=== PATIENT | male | born 1975 | race Caucasian/White ===

== ENCOUNTER 2020-08-08 16:47 | Emergency (ER) | payer OTHER ==
[2020-08-08 16:59] VITALS: BP 159/115; PULSE 95; RESP 18; TEMP 98.3
[2020-08-08] MEDS ORDERED: HYDROmorphone 1 MG/ML 1 ML SYRINGE IM STA (17:23)
--- NOTE | 2020-08-08 17:43 | XR ---
PROCEDURE: XR shoulder complete LT - 3V DATE AND TIME: 08/08/2020 5:30 PM CLINICAL INDICATION: PHH; post op TECHNIQUE: Department protocol COMPARISON: None FINDINGS: There is no fracture or malalignment. There is distinct soft tissue swelling involving the rotator cuff. 1 cm separation at the AC joint is noted, with no malalignment. IMPRESSION: Soft tissue swelling.
--- NOTE | 2020-08-08 18:47 | ED ---
General Adult HPI - General Chief complaint: Extremity Injury, Upper Stated complaint: Shoulder pain, post surgery, [facility] Time Seen by Provider: 08/08/20 17:05 Source: patient, RN notes reviewed Mode of arrival: ambulatory Limitations: no limitations - History of Present Illness Initial comments: 45-year-old male presents to the emergency room for a chief complaint of left shoulder pain. Patient reports that about 3 weeks ago he had surgery in the left shoulder to repair a tear. Patient is unsure exactly what was torn. Patient states that this is his third surgery on the shoulder because of complications. Patient had the surgery performed at [facility]. Patient presents today for pain of the left shoulder. States he started physical therapy on Wednesday and this exacerbated the pain. He did call his orthopedic doctor who told him he cannot see him before the end of July and would not write him any more pain medications. His primary care refused to write him pain medications and told him they could not help him. They told him to come to the ER. Patient denies fevers or chills. Patient denies numbness or tingling in the hand.Patient has no other complaints at this time including shortness of breath, chest pain, abdominal pain, nausea or vomiting, headache, or visual changes. - Related Data Previous Rx's Medication Instructions Recorded HYDROcodone/APAP 5-325MG [[place] 1 tab PO Q6HR PRN #10 tab 08/08/20 5-325] Allergies Allergy/AdvReac Type Severity Reaction Status Date / Time cortisone Allergy Unknown Verified 08/08/20 17:48 prednisone Allergy Unknown Verified 08/08/20 17:48 Review of Systems ROS Statement: Those systems with pertinent positive or pertinent negative responses have been documented in the HPI. ROS Other: All systems not noted in ROS Statement are negative. Past Medical History Past Medical History: Myocardial Infarction ([place]) Additional Past Medical History / Comment(s): pancreatitis History of Any Multi-Drug Resistant Organisms: None Reported Past Surgical History: Orthopedic Surgery Additional Past Surgical History / Comment(s): left shoulder Past Psychological History: No Psychological Hx Reported Smoking Status: Current every day smoker Past Alcohol Use History: Occasional Past Drug Use History: None Reported General Exam Limitations: no limitations General appearance: alert Head exam: Present: atraumatic, normocephalic, normal inspection Eye exam: Present: normal appearance, PERRL, EOMI. Absent: scleral icterus, conjunctival injection, periorbital swelling ENT exam: Present: normal exam, mucous membranes moist Neck exam: Present: normal inspection, full ROM. Absent: tenderness, meningismus, lymphadenopathy Respiratory exam: Present: normal lung sounds bilaterally. Absent: respiratory distress, wheezes, rales, rhonchi, stridor Cardiovascular Exam: Present: regular rate, normal rhythm, normal heart sounds. Absent: systolic murmur, diastolic murmur, rubs, gallop, clicks GI/Abdominal exam: Present: soft, normal bowel sounds. Absent: distended, tenderness, guarding, rebound, rigid Extremities exam: Present: tenderness (Patient has minimal generalized tenderness noted to the deltoid.), normal capillary refill (Capillary refill less than 2 seconds, radial pulse 2+ in the left upper extremity.), other (Respiratory Therapist Assistant strength 5 out of 5 in the left upper extremity. Sensation intact.). Absent: full ROM (Patient able to flex left shoulder to 45. States he is not supposed to do abduction of the left shoulder. Full range motion of the left hand.), joint swelling (There is no erythema or edema noted of the left shoulder. No evidence of infection. Incisions are well healed, no purulent drainage or deh iscence.) Course Vital Signs 08/08/20 16:48 Temperature 98.3 F Pulse Rate 95 Respiratory 18 Rate Blood Pressure 159/115 O2 Sat by Pulse 98 Oximetry Medical Decision Making - Medical Decision Making X-ray of the left shoulder was obtained which showed soft tissue swelling. There is a 1 cm separation of the before meals joint noted as well, no malalignment. I discussed these findings with patient. Patient was given IM pain medication and will be written a 3 day prescription for pain medication. However was recommended that he follow-up with his surgeon for a recheck. He is also encouraged to follow up with primary care. Discussed returning here for any worsening symptoms. Disposition Clinical Impression: Shoulder pain, left, Post-op pain Disposition: HOME SELF-CARE Condition: Good Instructions (If sedation given, give patient instructions): Shoulder Pain (ED) Additional Instructions: Please take pain medications as directed, do not drive or operate machinery while taking these. Follow-up with your orthopedic physician. If you develop any worsening symptoms such as fevers return to the emergency room. Prescriptions: HYDROcodone/APAP 5-325MG [[place] 5-325] 1 tab PO Q6HR PRN #10 tab PRN Reason: Pain Is patient prescribed a controlled substance at d/c from ED?: Yes When asked, does pt state using other controlled substances?: No If prescribed controlled substance>3 days was MAPS reviewed?: Prescribed <3 Days If opioid is for acute pain is fill amount 7 days or less?: Yes If Rx opioid, was Start Talking consent form obtained?: Yes Referrals: Nonstaff,Physician [Primary Care Provider] - 1-2 days Time of Disposition: 18:43
== END 2020-08-08 19:08 | disposition home or self-care (01) ==
LOC: EC 16:47
DX: G89.18 Other acute postprocedural pain (principal); M25.512 Pain in left shoulder; I25.2 Old myocardial infarction; F17.200 Nicotine dependence, unspecified, uncomplicated; Z88.8 Allergy status to other drugs, medicaments and biological substances; Y92.69 Other specified industrial and construction area as the place of occurrence of the external cause; Y99.0 Civilian activity done for income or pay
CPT/HCPCS: 73030; 99283; 96372; J1170

== ENCOUNTER 2021-04-06 18:21 | Observation (INO) | payer OTHER ==
[2021-04-06] MEDS ORDERED: PANTOPRAZOLE 40 MG/10 ML VIAL IVP STA (18:50)
[2021-04-06] MEDS ORDERED: SODIUM CHLORIDE 0.9% 1,000 ML IV STA ×2 (18:50)
[2021-04-06] MEDS ORDERED: HYDROmorphone 1 MG/ML 1 ML SYRINGE IVP STA ×2 (18:51→20:03)
--- NOTE | 2021-04-06 18:54 | ED ---
Abdominal Pain HPI - General Chief Complaint: Abdominal Pain Stated Complaint: epigastric pain, constipation Time Seen by Provider: 04/06/21 18:29 Source: patient, RN notes reviewed Mode of arrival: ambulatory Limitations: no limitations - History of Present Illness Initial Comments: This is a 46-year-old male with a prior history of alcoholic pancreatitis who states she's had drank since prior to his left shoulder surgery in February of this year who states he been having abdominal pain is very severe 10+/10 with decrease oral intake some nausea he states the pain is severe like his previous episode of pancreatitis does radiate around to his left flank area chest wall. No lightheadedness or dizziness. He has had black colored liquid stool he stat es started is surely after the surgery. He had previously been on antibiotics is on none now. MD Complaint: abdominal pain - Related Data Previous Rx's Medication Instructions Recorded HYDROcodone/APAP 5-325MG [[place] 1 tab PO Q6HR PRN #10 tab 08/08/20 5-325] Allergies Allergy/AdvReac Type Severity Reaction Status Date / Time cortisone Allergy Unknown Verified 04/06/21 18:23 prednisone Allergy Unknown Verified 04/06/21 18:23 Review of Systems ROS Statement: Those systems with pertinent positive or pertinent negative responses have been documented in the HPI. ROS Other: All systems not noted in ROS Statement are negative. Past Medical History Past Medical History: Myocardial Infarction ([place]) Additional Past Medical History / Comment(s): pancreatitis History of Any Multi-Drug Resistant Organisms: None Reported Past Surgical History: Orthopedic Surgery Additional Past Surgical History / Comment(s): left shoulder Past Psychological History: No Psychological Hx Reported Smoking Status: Current every day smoker Past Alcohol Use History: Rare Past Drug Use History: None Reported General Exam - General Exam Comments Initial Comments: This is a well-developed nourished awake alert oriented times 3 male Limitations: no limitations General appearance: alert, anxious Head exam: Present: atraumatic, normocephalic, normal inspection Eye exam: Present: normal appearance, PERRL, EOMI. Absent: scleral icterus, conjunctival injection, periorbital swelling ENT exam: Present: mucous membranes dry Neck exam: Present: normal inspection. Absent: tenderness, meningismus, lymphadenopathy Respiratory exam: Present: normal lung sounds bilaterally. Absent: respiratory distress, wheezes, rales, rhonchi, stridor Cardiovascular Exam: Present: normal rhythm, tachycardia, normal heart sounds. Absent: systolic murmur, diastolic murmur, rubs, gallop, clicks GI/Abdominal exam: Present: soft, tenderness (Epigastric tenderness palpation no overt guarding or rebound), normal bowel sounds. Absent: distended, guarding, rebound, rigid Rectal exam: Present: normal inspection, normal rectal tone, heme (+) stool Extremities exam: Present: normal inspection, full ROM, normal capillary refill. Absent: tenderness, pedal edema, joint swelling, calf tenderness Back exam: Present: normal inspection Neurological exam: Present: alert, oriented X3, CN II-XII intact Psychiatric exam: Present: normal affect, normal mood Skin exam: Present: warm, dry, intact, normal color. Absent: rash Course Vital Signs 04/06/21 18:23 Temperature 98.7 F Pulse Rate 105 H Respiratory 19 Rate Blood Pressure 164/108 O2 Sat by Pulse 98 Oximetry - Reevaluation(s) Reevaluation #1: 04/06/21 20:55 CT imaging reviewed as well as report no evidence of acute processes are is evidence of diverticular disease but no acute diverticulitis Medical Decision Making - Medical Decision Making Reevaluation the patient several occasions revealed he had minimal improvement thus far the pain lipase levels normal rectal exam showed heme positive results. I did discuss case with patient family patient will be admitted to Dr. Moore. CAT scan. - Lab Data Result diagrams: 04/06/21 19:13 04/06/21 19:13 Lab Results 04/06/21 04/06/21 04/06/21 Range/Units 19:13 19:13 19:13 WBC 11.8 H (3.8-10.6) k/uL RBC 4.33 (4.30-5.90) m/uL Hgb 14.1 (13.0-17.5) gm/dL Hct 41.2 (39.0-53.0) % MCV 95.2 (80.0-100.0) fL MCH 32.6 (25.0-35.0) pg MCHC 34.2 (31.0-37.0) g/dL RDW 12.8 (11.5-15.5) % Plt Count 543 H (150-450) k/uL MPV 6.6 Neutrophils % 76 % Lymphocytes % 17 % Monocytes % 4 % Eosinophils % 1 % Basophils % 1 % Neutrophils # 9.0 H (1.3-7.7) k/uL Lymphocytes # 2.0 (1.0-4.8) k/uL Monocytes # 0.4 (0-1.0) k/uL Eosinophils # 0.2 (0-0.7) k/uL Basophils # 0.1 (0-0.2) k/uL PT 10.0 (9.0-12.0) sec INR 0.9 (<1.2) APTT 22.2 (22.0-30.0) sec Sodium 132 L (137-145) mmol/L Potassium 3.9 (3.5-5.1) mmol/L Chloride 99 (98-107) mmol/L Carbon Dioxide 21 L (22-30) mmol/L Anion Gap 12 mmol/L BUN 4 L (9-20) mg/dL Creatinine 0.64 L (0.66-1.25) mg/dL Est GFR (CKD-EPI)AfAm >90 (>60 ml/min/1.73 sqM) Est GFR (CKD-EPI)NonAf >90 (>60 ml/min/1.73 sqM) Glucose 113 H (74-99) mg/dL Plasma Lactic Acid Bogdan (0.7-2.0) mmol/L Calcium 9.2 (8.4-10.2) mg/dL Total Bilirubin 0.1 L (0.2-1.3) mg/dL AST 20 (17-59) U/L ALT 13 (4-49) U/L Alkaline Phosphatase 145 H (38-126) U/L Creatine Kinase 39 L (55-170) U/L Total Protein 6.6 (6.3-8.2) g/dL Albumin 4.0 (3.5-5.0) g/dL Amylase 54 (30-110) U/L Lipase 105 (23-300) U/L Blood Type Blood Type Confirm Blood Type Recheck Bld Type Recheck Status Antibody Screen Spec Expiration Date 04/06/21 04/06/21 04/06/21 Range/Units 19:13 19:13 19:43 WBC (3.8-10.6) k/uL RBC (4.30-5.90) m/uL Hgb (13.0-17.5) gm/dL Hct (39.0-53.0) % MCV (80.0-100.0) fL MCH (25.0-35.0) pg MCHC (31.0-37.0) g/dL RDW (11.5-15.5) % Plt Count (150-450) k/uL MPV Neutrophils % % Lymphocytes % % Monocytes % % Eosinophils % % Basophils % % Neutrophils # (1.3-7.7) k/uL Lymphocytes # (1.0-4.8) k/uL Monocytes # (0-1.0) k/uL Eosinophils # (0-0.7) k/uL Basophils # (0-0.2) k/uL PT (9.0-12.0) sec INR (<1.2) APTT (22.0-30.0) sec Sodium (137-145) mmol/L Potassium (3.5-5.1) mmol/L Chloride (98-107) mmol/L Carbon Dioxide (22-30) mmol/L Anion Gap mmol/L BUN (9-20) mg/dL Creatinine (0.66-1.25) mg/dL Est GFR (CKD-EPI)AfAm (>60 ml/min/1.73 sqM) Est GFR (CKD-EPI)NonAf (>60 ml/min/1.73 sqM) Glucose (74-99) mg/dL Plasma Lactic Acid Bogdan 1.8 (0.7-2.0) mmol/L Calcium (8.4-10.2) mg/dL Total Bilirubin (0.2-1.3) mg/dL AST (17-59) U/L ALT (4-49) U/L Alkaline Phosphatase (38-126) U/L Creatine Kinase (55-170) U/L Total Protein (6.3-8.2) g/dL Albumin (3.5-5.0) g/dL Amylase (30-110) U/L Lipase (23-300) U/L Blood Type B Positive Blood Type Confirm B Positive Blood Type Recheck No Previous Record Bld Type Recheck Status CABO Indicated Antibody Screen NEGATIVE Spec Expiration Date 04/09/2021 - 2342 - Radiology Data Radiology results: report reviewed (KUB reviewed evidence nonspecific), image reviewed Disposition Clinical Impression: Intractable abdominal pain, GI bleed Disposition: ADMITTED IP TO THIS [facility] Condition: Fair Referrals: Nonstaff,Physician [REFERRING] - 1-2 days
[2021-04-06 19:32] LABS: Basophils # (A) 0.1 k/uL (0-0.2); Basophils % (A) 1 %; Eosinophils # (A) 0.2 k/uL (0-0.7); Eosinophils % (A) 1 %; HCT 41.2 % (39.0-53.0); HGB 14.1 gm/dL (13.0-17.5); Lymphocytes % (A) 17 %; MCH 32.6 pg (25.0-35.0); MCHC 34.2 g/dL (31.0-37.0); MCV 95.2 fL (80.0-100.0); Mean Platelet Volume 6.6; Monocytes # (A) 0.4 k/uL (0-1.0); Monocytes % (A) 4 %; Neutrophils % (A) 76 %; Platelet Count 543 k/uL (150-450); RBC 4.33 m/uL (4.30-5.90); RDW 12.8 % (11.5-15.5); WBC 11.8 k/uL (3.8-10.6)
[2021-04-06 19:40] LABS: ALT 13 U/L (4-49); AST 20 U/L (17-59); African American GFR (CKD) >90 (>60 ml/min/1.73 sqM); Alkaline Phosphatase 145 U/L (38-126); Amylase 54 U/L (30-110); Anion Gap 12 mmol/L; Blood Urea Nitrogen 4 mg/dL (9-20); Calcium 9.2 mg/dL (8.4-10.2); Carbon Dioxide 21 mmol/L (22-30); Chloride 99 mmol/L (98-107); Creatine Kinase 39 U/L (55-170); Glucose 113 mg/dL (74-99); Lipase 105 U/L (23-300); Non-African American GFR(CKD) >90 (>60 ml/min/1.73 sqM); Potassium 3.9 mmol/L (3.5-5.1); Sodium 132 mmol/L (137-145); Total Bilirubin 0.1 mg/dL (0.2-1.3); Total Protein 6.6 g/dL (6.3-8.2)
[2021-04-06 19:52] LABS: INR 0.9 (<1.2); Partial Thromboplastin Time 22.2 sec (22.0-30.0)
--- NOTE | 2021-04-06 20:24 | XR ---
EXAMINATION TYPE: XR KUB DATE OF EXAM: 04/06/2021 COMPARISON: NONE HISTORY: Pain TECHNIQUE: 2 views upright FINDINGS: There is no sign of intestinal obstruction or pneumoperitoneum. Fecal pattern is normal. Th ere is no sign of a mass. Lung bases are clear. There are no pathologic calcifications over the kidne ys. IMPRESSION: Nonacute abdomen.
[2021-04-06] MEDS ORDERED: NALOXONE 0.4 MG/ML 1 ML VIAL IV PRN (20:51)
[2021-04-06] MEDS ORDERED: ONDANSETRON 4 MG/2 ML VIAL IVP PRN (20:51)
--- NOTE | 2021-04-06 20:51 | CT ---
EXAMINATION TYPE: CT abdomen pelvis w con DATE OF EXAM: 04/06/2021 COMPARISON: None HISTORY: Upper Abdominal pain with black stools. CT DLP: 871.2 mGycm Automated exposure control for dose reduction was used. CONTRAST: Performed with IV Contrast, patient injected with 100 mL of Isovue 300. Images obtained from the diaphragm to the floor the pelvis with IV contrast. Lung bases are clear. There is no pleural effusion. Heart size is normal. There is no pericardial eff usion. There is posterior left side diaphragmatic hernia that contains fat. Liver spleen pancreas gallbladder appear intact. The bile ducts are not dilated. Stomach is intact. There is no adrenal mass. Kidneys show satisfactory contrast opacification. There is no hydronephrosi s. There is 2 cm cortical cyst lateral left kidney. Delayed images show normal renal excretion. There is no retroperitoneal adenopathy. Ureters are not dilated. The bladder distends smoothly. There is n o inguinal hernia. There are multiple sigmoid diverticula. There is no diverticulitis. There is no mesenteric edema. There is no ascites or free air. There is no bowel obstruction. The cassius endix appears normal. The lumbar vertebra have normal alignment. There is no compression fracture. Bony pelvis is intact. T he hip joints are intact. There is no hip dysplasia. IMPRESSION: Moderate sigmoid diverticulosis without diverticulitis. Normal appendix.
[2021-04-06 21:27] LABS: Appearance,Urine Clear (Clear); Bilirubin,Urine Negative (Negative); Blood,Urine Negative (Negative); Color,Urine Light Yellow; Glucose,Urine (UA) Negative (Negative); Ketones,Urine Negative (Negative); Leukocyte Esterase,Urine Negative (Negative); Nitrite,Urine Negative (Negative); Protein,Urine Negative (Negative); Specific Gravity,Urine 1.021 (1.001-1.035); Urobilinogen,Urine <2.0 mg/dL (<2.0)
[2021-04-06] MEDS: DICYCLOMINE 10 MG/ML 2 ML AMP IM STA ×2 (21:39→21:45)
[2021-04-06] MEDS: PANTOPRAZOLE 40 MG/10 ML VIAL IV SCH (21:40)
[2021-04-06] MEDS: SODIUM CHLORIDE 0.9% 1,000 ML IV SCH (21:44)
[2021-04-06] MEDS: HYDROmorphone 1 MG/ML 1 ML SYRINGE IVP PRN (23:36)
[2021-04-06] MEDS ORDERED: ZOLPIDEM 5 MG TAB PO PRN (23:46)
[2021-04-07] MEDS: lisinopriL 20 MG TAB PO SCH ×3 (00:20→19:50)
[2021-04-07] MEDS: NICOTINE 14MG/24HR PATCH TRANSDERM SCH ×2 (00:20→07:45)
[2021-04-07] MEDS: HYDROmorphone 1 MG/ML 1 ML SYRINGE IVP PRN ×6 (02:36→22:13)
[2021-04-07] MEDS: SODIUM CHLORIDE 0.9% 1,000 ML IV SCH ×3 (05:19→17:01)
[2021-04-07 06:52] LABS: Basophils # (A) 0.1 k/uL (0-0.2); Basophils % (A) 1 %; Eosinophils # (A) 0.2 k/uL (0-0.7); Eosinophils % (A) 3 %; HCT 36.8 % (39.0-53.0); HGB 12.6 gm/dL (13.0-17.5); Lymphocytes # (A) 2.2 k/uL (1.0-4.8); Lymphocytes % (A) 28 %; MCH 32.6 pg (25.0-35.0); MCHC 34.2 g/dL (31.0-37.0); MCV 95.3 fL (80.0-100.0); Mean Platelet Volume 7.4; Monocytes # (A) 0.4 k/uL (0-1.0); Monocytes % (A) 5 %; Neutrophils # (A) 4.7 k/uL (1.3-7.7); Neutrophils % (A) 62 %; Platelet Count 430 k/uL (150-450); RBC 3.86 m/uL (4.30-5.90); RDW 12.4 % (11.5-15.5); WBC 7.6 k/uL (3.8-10.6)
[2021-04-07] MEDS: buPROPion SR 150 MG TABLET.ER PO SCH (07:45)
[2021-04-07] MEDS: NON FORMULARY DRUG (Lubiprostone [Lubiprostone] 24 MCG Capsule) PO SCH ×2 (07:45→21:20)
[2021-04-07] MEDS: DOXYCYCLINE 100 MG CAP PO SCH ×2 (07:45→20:00)
[2021-04-07] MEDS: PANTOPRAZOLE 40 MG/10 ML VIAL IV SCH ×2 (07:45→19:51)
[2021-04-07] MEDS ORDERED: ETODOLAC 300 MG CAPSULE PO SCH (09:00)
[2021-04-07] MEDS: NICOTINE 21MG/24HR PATCH TRANSDERM SCH (10:12)
[2021-04-07] MEDS: SUCRALFATE 1 GM TAB PO SCH ×2 (11:31→16:58)
[2021-04-07] MEDS: HYDROcodone/APAP 10-325MG 1 EACH TAB PO PRN ×2 (11:34→19:49)
--- NOTE | 2021-04-07 11:52 | P.HPIM ---
History of Present Illness Patient is a 44-year-old male came in with epigastric abdominal pain. Patient does drink alcohol about 2 beers every day but has not been drinking alcohol since his shoulder surgery patient had recent shoulder surgery after which barry barbra was a started on nonsteroidal anti-inflammatory. Patient had history of alcoholic pancreatitis in the past and he believes he has pancreatitis. CT of the abdomen did not show any progression of the pancreas and lipase is 52. Patient was also complaining of dark stools about couple episodes in Wednesday and one episode on Wednesday. Patient's hemoglobin did go down from 14-12.6 that is because of the IV fluids patient is bit hyponatremic at 132. Patient denied any fever chills. General surgery was consulted for possible upper GI endoscopy. Patient's pain is 10/10 sharp in nature in the epigastric area radiating to the left the upper quadrant. REVIEW OF SYSTEMS: CONSTITUTIONAL: No fever, no malaise, no fatigue. HEENT: No recent visual problems or hearing problems. Denied any sore throat. CARDIOVASCULAR: No chest pain, orthopnea, PND, no palpitations, no syncope. PULMONARY: No shortness of breath, no cough, no hemoptysis. GASTROINTESTINAL: As mentioned in HPI NEUROLOGICAL: No headaches, no weakness, no numbness. HEMATOLOGICAL: Denies any bleeding or petechiae. GENITOURINARY: Denies any burning micturition, frequency, or urgency. MUSCULOSKELETAL/RHEUMATOLOGICAL: Denies any joint pain, swelling, or any muscle pain. ENDOCRINE: Denies any polyuria or polydipsia. The rest of the 14-point review of systems is negative. PHYSICAL EXAMINATION: GENERAL: The patient is alert and oriented x3, not in any acute distress. Well developed, well nourished. HEENT: Pupils are round and equally reacting to light. EOMI. No scleral icterus. No conjunctival pallor. Normocephalic, atraumatic. No pharyngeal erythema. No thyromegaly. CARDIOVASCULAR: S1 and S2 present. No murmurs, rubs, or gallops. PULMONARY: Chest is clear to auscultation, no wheezing or crackles. ABDOMEN: Soft, some subjective tenderness in the epigastric area nondistended, normoactive bowel sounds. No palpable organomegaly. MUSCULOSKELETAL: No joint swelling or deformity. EXTREMITIES: No cyanosis, clubbing, or pedal edema. NEUROLOGICAL: Gross neurological examination did not reveal any focal deficits. SKIN: No rashes. Assessment and plan -Epigastric abdominal pain probably secondary to peptic ulcer disease, my suspicion is low that patient has a GI bleed considering his history in spite of FOBT being positive. Patient will be monitored. Gen. surgery will evaluate the patient for possible upper GI endoscopy and decision of endoscopy as per general surgery. -Hypovolemic hyponatremia continue with IV fluids -Leukocytosis reactive in nature -Alcohol use: Counseling was provided -Recent left shoulder surgery. -Nicotine use: Counseling was provided DVT prophylaxis: Early ambulation Past Medical History Past Medical History: Myocardial Infarction ([place]) Additional Past Medical History / Comment(s): pancreatitis Last Myocardial Infarction Date:: Pt states 10 years ago. History of Any Multi-Drug Resistant Organisms: None Reported Past Surgical History: Orthopedic Surgery Additional Past Surgical History / Comment(s): left shoulder Past Anesthesia/Blood Transfusion Reactions: No Reported Reaction Past Psychological History: No Psychological Hx Reported Smoking Status: Current every day smoker Past Alcohol Use History: Daily Additional Past Alcohol Use History / Comment(s): Pt states he drank 6-10 beers/day prior to his surgery on March 18. Past Drug Use History: None Reported Medications and Allergies Home Medications Medication Instructions Recorded Confirmed Type Diclofenac Sodium [Diclofenac 100 mg PO BID 04/06/21 04/06/21 History Sodium ER] Doxycycline Monohydrate 100 mg PO BID 04/06/21 04/06/21 History Lubiprostone 24 mg PO BID 04/06/21 04/06/21 History Zolpidem [Ambien] 5 mg PO HS PRN 04/06/21 04/06/21 History buPROPion HCL [buPROPion HCL SR] 150 mg PO DAILY 04/06/21 04/06/21 History lisinopriL [Zestril] 20 mg PO BID 04/06/21 04/06/21 History Allergies Allergy/AdvReac Type Severity Reaction Status Date / Time cortisone Allergy Unknown Verified 04/06/21 21:03 prednisone Allergy Unknown Verified 04/06/21 21:03 Physical Exam Vitals: Vital Signs Temp Pulse Pulse Resp BP BP Pulse Ox 04/07/21 07:00 98.4 F 69 16 137/94 98 04/07/21 02:00 18 04/07/21 01:24 98.1 F 65 16 156/88 99 04/06/21 22:43 98.8 F 70 18 164/94 99 04/06/21 21:33 83 18 157/105 98 04/06/21 18:23 98.7 F 105 H 19 164/108 98 Intake and Output 04/06/21 04/07/21 04/07/21 22:59 06:59 14:59 Intake Total 0 Balance 0 Intake: Oral 0 Other: Voiding Method Toilet # Voids 2 Weight 94.347 kg Results CBC & Chem 7: 04/07/21 06:34 04/06/21 19:13 Labs: Abnormal Lab Results - Last 24 Hours (Table) 04/06/21 04/06/21 04/07/21 Range/Units 19:13 19:13 06:34 WBC 11.8 H (3.8-10.6) k/uL RBC 3.86 L (4.30-5.90) m/uL Hgb 12.6 L (13.0-17.5) gm/dL Hct 36.8 L (39.0-53.0) % Plt Count 543 H (150-450) k/uL Neutrophils # 9.0 H (1.3-7.7) k/uL Sodium 132 L (137-145) mmol/L Carbon Dioxide 21 L (22-30) mmol/L BUN 4 L (9-20) mg/dL Creatinine 0.64 L (0.66-1.25) mg/dL Glucose 113 H (74-99) mg/dL Total Bilirubin 0.1 L (0.2-1.3) mg/dL Alkaline Phosphatase 145 H (38-126) U/L Creatine Kinase 39 L (55-170) U/L Thrombosis Risk Factor Assmnt - Choose All That Apply Each Factor Represents 1 point: Age 41-60 years Other Risk Factors: No Other congenital or acquired thrombophilia - If yes, enter type in comment: No Thrombosis Risk Factor Assessment Total Risk Factor Score: 1 Thrombosis Risk Factor Assessment Level: Low Risk
--- NOTE | 2021-04-07 16:28 | P.GSCN ---
History of Present Illness Consult date: 04/07/21 History of present illness: CHIEF COMPLAINT: Abdominal pain HISTORY OF PRESENT ILLNESS: This is a 46-year-old male with a known history of alcohol pancreatitis, nicotine dependence and MO secondary to alcohol abuse. He also had a left shoulder surgery in 03/18/2021. He has been on NSAIDs since surgery. Patient's presents to the hospital with complaining of epigastric pain that radiates across the left abdomen and into his back. Initially he thought he was having pain due to constipation. He was able to have a bowel movement after about a week and was still having pain. Patient reports that this epigastric pain has been there for about a week. He also has been having black liquidy stools. His hemoglobin on admission was 12.6 stool for occult blood was positive. He had a computed tomography scan of the abdomen and pelvis showing moderate sigmoid diverticulosis without diverticulitis. Normal appendix. Patient denies any fever chills or sweats. He denies any nausea or vomiting. Surgical service consulted for abdominal pain and positive fecal occult blood. Patient does report having EGD done about 3 years ago and per patient it was normal. Patient does report taking the NSAID that was prescribed by his orthopedic. And then he switched over to Aleve over the last couple of days. Patient reports that he has not had any alcohol since his shoulder surgery in February. PAST MEDICAL HISTORY: See list. PAST SURGICAL HISTORY: See list. MEDICATIONS: See list. ALLERGIES: See list. SOCIAL HISTORY: No illicit drug use. REVIEW OF SYSTEMS: CONSTITUTIONAL: Denies fever or chills. HEENT: Denies blurred vision, vision changes, or eye pain. Denies hemoptysis ENDOCRINE: Denies heat or cold intolerance. CARDIOVASCULAR: Denies chest pain or pressure. RESPIRATORY: No shortness of breath. GASTROINTESTINAL: Please refer to HPI NEURO: Denies history of seizures. PSYCH: No depression or suicidal ideation HEMATOLOGIC: Denies bleeding disorders. LYMPHATIC: The patient denies any lumps and bumps around the neck. GENITOURINARY: Denies any blood in urine or increased urinary frequency. MUSCULOSKELETAL: Denies myalgias. Denies joint swelling. Denies decreased range of motion beyond patients baseline. SKIN: Denies pruitis. Denies rash. PHYSICAL EXAM: VITAL SIGNS: Reviewed GENERAL: Well-developed in no acute distress. HEENT: No sclera icterus. Extraocular movements grossly intact. Moist buccal mucosa. Head is atraumatic, normocephalic. Hears conversational speech. No nasal drainage. NECK: Supple without lymphadenopathy. CHEST: Non-labored respirations and equal bilateral excursions. CARDIOVASCULAR: Palpable 2+ radial pulses. ABDOMEN: Soft. Nondistended. Tenderness with palpation of the epigastric area MUSCULOSKELETAL: No clubbing or cyanosis. NEUROLOGIC: No focal or lateralizing signs. Cranial nerves II through XII grossly intact. PSYCH: Appropriate affect. Alert and oriented to person, place and time. SKIN: Well perfused. Good skin turgor. LABORATORY DATA: WBC 11.8 down to 7.6 hemoglobin 14.1 down to 12.6 platelets 430 Lipase 52 AST 20 ALT 13 alk phos 145 Urinalysis negative for infection Stool occult blood positive IMAGING: Computed tomography scan findings as stated above ASSESSMENT: 1. Epigastric abdominal pain that radiates to the left upper abdomen and back with black stools and recent NSAID use. Patient's symptoms may be due to a stomach ulcer as well as a gallbladder dysfunction. 2. History of alcohol pancreatitis 3. Nicotine dependence 4. Leukocytosis resolved 5. Hyponatremia PLAN: -Gallbladder ultrasound ordered to rule out any gallbladder disease or dysfunction -Plan for EGD tentatively on Wednesday04/09/2021 -Continue Protonix 40 mg IV twice a day -Add Carafate 1 g 3 times a day -Start patient on clear liquid diet -Discussed smoking cessation. Nicotine patch increased to 21 mg daily -Continue pain medication as needed Thank you for this consultation Physician Inspector Balance Truing note has been reviewed by physician. Signing provider agrees with the documented findings, assessment, and plan of care. Past Medical History Past Medical History: Myocardial Infarction (MO) Additional Past Medical History / Comment(s): pancreatitis Last Myocardial Infarction Date:: Pt states 10 years ago. History of Any Multi-Drug Resistant Organisms: None Reported Past Surgical History: Orthopedic Surgery Additional Past Surgical History / Comment(s): left shoulder Past Anesthesia/Blood Transfusion Reactions: No Reported Reaction Past Psychological History: No Psychological Hx Reported Smoking Status: Current every day smoker Past Alcohol Use History: Daily Additional Past Alcohol Use History / Comment(s): Pt states he drank 6-10 beers/day prior to his surgery on March 18. Past Drug Use History: None Reported Medications and Allergies Home Medications Medication Instructions Recorded Confirmed Type Diclofenac Sodium [Diclofenac 100 mg PO BID 04/06/21 04/06/21 History Sodium ER] Doxycycline Monohydrate 100 mg PO BID 04/06/21 04/06/21 History Lubiprostone 24 mg PO BID 04/06/21 04/06/21 History Zolpidem [Ambien] 5 mg PO HS PRN 04/06/21 04/06/21 History buPROPion HCL [buPROPion HCL SR] 150 mg PO DAILY 04/06/21 04/06/21 History lisinopriL [Zestril] 20 mg PO BID 04/06/21 04/06/21 History Allergies Allergy/AdvReac Type Severity Reaction Status Date / Time cortisone Allergy Unknown Verified 04/06/21 21:03 prednisone Allergy Unknown Verified 04/06/21 21:03 Surgical - Exam Vital Signs Temp Pulse Resp BP Pulse Ox 98.7 F 105 H 19 164/108 98 04/06/21 18:23 04/06/21 18:23 04/06/21 18:23 04/06/21 18:23 04/06/21 18:23 Results - Labs 04/07/21 06:34 04/06/21 19:13 Abnormal Lab Results - Last 24 Hours (Table) 04/06/21 04/06/21 04/07/21 Range/Units 19:13 19:13 06:34 WBC 11.8 H (3.8-10.6) k/uL RBC 3.86 L (4.30-5.90) m/uL Hgb 12.6 L (13.0-17.5) gm/dL Hct 36.8 L (39.0-53.0) % Plt Count 543 H (150-450) k/uL Neutrophils # 9.0 H (1.3-7.7) k/uL Sodium 132 L (137-145) mmol/L Carbon Dioxide 21 L (22-30) mmol/L BUN 4 L (9-20) mg/dL Creatinine 0.64 L (0.66-1.25) mg/dL Glucose 113 H (74-99) mg/dL Total Bilirubin 0.1 L (0.2-1.3) mg/dL Alkaline Phosphatase 145 H (38-126) U/L Creatine Kinase 39 L (55-170) U/L Diabetes panel 04/06/21 Range/Units 19:13 Sodium 132 L (137-145) mmol/L Potassium 3.9 (3.5-5.1) mmol/L Chloride 99 (98-107) mmol/L Carbon Dioxide 21 L (22-30) mmol/L BUN 4 L (9-20) mg/dL Creatinine 0.64 L (0.66-1.25) mg/dL Glucose 113 H (74-99) mg/dL Calcium 9.2 (8.4-10.2) mg/dL AST 20 (17-59) U/L ALT 13 (4-49) U/L Alkaline Phosphatase 145 H (38-126) U/L Total Protein 6.6 (6.3-8.2) g/dL Albumin 4.0 (3.5-5.0) g/dL Calcium panel 04/06/21 Range/Units 19:13 Calcium 9.2 (8.4-10.2) mg/dL Albumin 4.0 (3.5-5.0) g/dL Pituitary panel 04/06/21 Range/Units 19:13 Sodium 132 L (137-145) mmol/L Potassium 3.9 (3.5-5.1) mmol/L Chloride 99 (98-107) mmol/L Carbon Dioxide 21 L (22-30) mmol/L BUN 4 L (9-20) mg/dL Creatinine 0.64 L (0.66-1.25) mg/dL Glucose 113 H (74-99) mg/dL Calcium 9.2 (8.4-10.2) mg/dL Adrenal panel 04/06/21 Range/Units 19:13 Sodium 132 L (137-145) mmol/L Potassium 3.9 (3.5-5.1) mmol/L Chloride 99 (98-107) mmol/L Carbon Dioxide 21 L (22-30) mmol/L BUN 4 L (9-20) mg/dL Creatinine 0.64 L (0.66-1.25) mg/dL Glucose 113 H (74-99) mg/dL Calcium 9.2 (8.4-10.2) mg/dL Total Bilirubin 0.1 L (0.2-1.3) mg/dL AST 20 (17-59) U/L ALT 13 (4-49) U/L Alkaline Phosphatase 145 H (38-126) U/L Total Protein 6.6 (6.3-8.2) g/dL Albumin 4.0 (3.5-5.0) g/dL
[2021-04-07] MEDS ORDERED: ALPRAZolam 0.5 MG TAB PO STA (22:35)
--- NOTE | 2021-04-07 22:53 | US ---
EXAMINATION TYPE: US gallbladder DATE OF EXAM: 04/07/2021 COMPARISON: CT CLINICAL HISTORY: abdominal pain. Abdominal pain. EXAM MEASUREMENTS: Liver Length: 18.4 cm Gallbladder Wall: 0.14 cm CBD: 0.27 cm Right Kidney: 12.2 x 5.7 x 4.8 cm Limited due to overlying bowel gas. Pancreas: Not well seen due to overlying bowel gas. Liver: Appears to measure slightly enlarged. Gallbladder: Folds seen. Appears to be anechoic. Evidence for sonographic Valdivia's sign: No CBD: Portions seen appear to be wnl. Right Kidney: No hydronephrosis or masses seen. Measures slightly enlarged versus upper limits of no rmal. IMPRESSION: No gallstones seen. Gallbladder wall appears borderline thickened. This is probably normal in this no nfasting patient. No dilated ducts. No focal liver defect.
[2021-04-08] MEDS: SODIUM CHLORIDE 0.9% 1,000 ML IV SCH ×3 (03:52→20:34)
[2021-04-08] MEDS: NON FORMULARY DRUG (Lubiprostone [Lubiprostone] 24 MCG Capsule) PO SCH ×2 (07:18→20:39)
[2021-04-08] MEDS: HYDROmorphone 1 MG/ML 1 ML SYRINGE IVP PRN ×4 (07:22→23:37)
[2021-04-08] MEDS: NICOTINE 21MG/24HR PATCH TRANSDERM SCH (07:26)
[2021-04-08] MEDS: DOXYCYCLINE 100 MG CAP PO SCH ×2 (07:26→20:34)
[2021-04-08] MEDS: buPROPion SR 150 MG TABLET.ER PO SCH (07:26)
[2021-04-08] MEDS: PANTOPRAZOLE 40 MG/10 ML VIAL IV SCH ×2 (07:26→20:34)
[2021-04-08] MEDS: lisinopriL 20 MG TAB PO SCH ×2 (07:26→20:34)
[2021-04-08] MEDS: SUCRALFATE 1 GM TAB PO SCH ×3 (07:26→16:54)
[2021-04-08] MEDS: ALPRAZolam 0.25 MG TAB PO SCH ×2 (11:53→20:34)
--- NOTE | 2021-04-08 13:03 | P.PN ---
Subjective Progress Note Date: 04/08/21 Patient is a 44-year-old male came in with epigastric abdominal pain. Patient does drink alcohol about 2 beers every day but has not been drinking alcohol since his shoulder surgery patient had recent shoulder surgery after which patient was a started on nonsteroidal anti-inflammatory. Patient had history of alcoholic pancreatitis in the past and he believes he has pancreatitis. CT of the abdomen did not show any progression of the pancreas and lipase is 52. Patient was also complaining of dark stools about couple episodes in Wednesday and one episode on Wednesday. Patient's hemoglobin did go down from 14-12.6 that is because of the IV fluids patient is bit hyponatremic at 132. Patient denied any fever chills. General surgery was consulted for possible upper GI endoscopy. Patient's pain is 10/10 sharp in nature in the epigastric area radiating to the left the upper quadrant. Patient is evaluated at the bedside, he is reporting a abdominal pain that is in the right upper quadrant and radiates around to the left side into the back, as well as some epigastric pain. He states that is sharp entry. Patient states that it is not aggravated by food. He denies nausea, vomiting, cramping. He states that he has not had a bowel movement since Wednesday. Patient states that prior to that he been having diarrhea, after experiencing some constipation postoperatively to his shoulder surgery in February 2021. Patient states that he has not drank since 2 days prior to his surgery in February, however prior to that he had been drinking 2 beers per day. He states that he has never had any withdrawal symptoms from alcohol cessation. Today by general surgery, and was scheduled patient for an EGD tomorrow to rule out an acute stomach ulcer, related to black stools and recent NSAID use. Patient had a gallbladder ultrasound that was completed today that revealed no gallstones, no dilated ducts and no focal of 35. Patient hadn't panel CT performed on admission that showed moderate sigmoid never to doses without diverticulitis. A normal appearing appendix. In addition this patient had a KUB which revealed a nonacute abdomen. Patient denies any cough, has been, shortness of breath. Patient states that he is ambulating without difficulty. Patient is sitting of NPO status, RN contacting surgical for diet order. Vital signs are stable today, temp 98.1, heart rate sinus rhythm in the 70s, blood pressure 153/98. Patient is remaining on room air he had continue to monitor closely, small dose of Xanax scheduled has been ordered for patient's continued anxiety. ROS: Constitutional: Denied any fatigue denied any fever. Cardio vascular: denied any chest pain, palpitations Gastrointestinal denied any nausea vomiting, reports sharp epigastric and RUQ abdominal pain, denies diarrhea Pulmonary: Denied any shortness of breath cough Neurologic denied any new focal deficits All inpatient medications were reviewed and appropriate changes in these medications as dictated in the interval history and assessment and plan. PHYSICAL EXAMINATION: GENERAL: The patient is alert and oriented x3, not in any acute distress. Well developed, well nourished. HEENT: Pupils are round and equally reacting to light. EOMI. No scleral icterus. No conjunctival pallor. Normocephalic, atraumatic. No pharyngeal erythema. No thyromegaly. CARDIOVASCULAR: S1 and S2 present. No murmurs, rubs, or gallops. PULMONARY: Chest is clear to auscultation, no wheezing or crackles. ABDOMEN: Soft, nondistended, normoactive bowel sounds. No palpable organomegaly. Tender to palpation RUQ, LUQ MUSCULOSKELETAL: No joint swelling or deformity. EXTREMITIES: No cyanosis, clubbing, or pedal edema. NEUROLOGICAL: Gross neurological examination did not reveal any focal deficits. SKIN: No rashes. Assessment and plan -Epigastric abdominal pain probably secondary to peptic ulcer disease, patient has a history of NSAID use, evaluation from surgical service -Hypovolemic hyponatremia continue with IV fluids -Leukocytosis reactive in nature, resolved. -Alcohol use: Counseling was provided -Recent left shoulder surgery. -Nicotine use: Counseling was provided, denies nicotine patch GI prophylaxis: Protonix, carafate DVT prophylaxis: Early ambulation Patient is scheduled for a HIDA scan recommendations are surgical services. Continue with pain management, continue with Xanax as needed. [place] ruminations via surgical services. Patient is scheduled for an EGD tomorrow. Patient has been started on Carafate, Protonix for GI prophylaxis via surgical services. Objective - Vital Signs Vital signs: Vital Signs Temp 98.1 F 04/08/21 07:00 Pulse 70 04/08/21 07:00 Resp 16 04/08/21 07:00 BP 153/98 04/08/21 07:00 Pulse Ox 99 04/08/21 07:00 Intake & Output 04/07/21 04/08/21 04/08/21 18:59 06:59 18:59 Intake Total 300 Balance 300 Intake: Oral 300 Other: Voiding Method Toilet # Voids 3 2 - Labs CBC & Chem 7: 04/07/21 06:34 04/06/21 19:13 Assessment and Plan Time with Patient: Greater than 30
--- NOTE | 2021-04-08 14:30 | P.PN ---
Subjective Progress Note Date: 04/08/21 CHIEF COMPLAINT: Abdominal pain HISTORY OF PRESENT ILLNESS: Patient is still complaining of epigastric abdominal pain that radiates to the left side of his abdomen and around the back. He denies any nausea or vomiting. He's had no further black stools. He had a HIDA scan completed this morning results are pending. He is scheduled for EGD tomorrow. Afebrile. Labs from yesterday WBC 7.6 hemoglobin is 12.6 PHYSICAL EXAM: VITAL SIGNS: Reviewed GENERAL: Well-developed in no acute distress. HEENT: No sclera icterus. Extraocular movements grossly intact. Moist buccal mucosa. Head is atraumatic, normocephalic. Hears conversational speech. No nasal drainage. NECK: Supple without lymphadenopathy. CHEST: Non-labored respirations and equal bilateral excursions. CARDIOVASCULAR: Palpable 2+ radial pulses. ABDOMEN: Soft. Nondistended. Epigastric tenderness with palpation in left upper quadrant tenderness with palpation MUSCULOSKELETAL: No clubbing or cyanosis. NEUROLOGIC: No focal or lateralizing signs. Cranial nerves II through XII grossly intact. PSYCH: Appropriate affect. Alert and oriented to person, place and time. SKIN: Well perfused. Good skin turgor. ASSESSMENT: 1. Epigastric abdominal pain that radiates to the left upper abdomen and back with black stools and recent NSAID use. Patient's symptoms may be due to a stomach ulcer as well as a gallbladder dysfunction. 2. History of alcohol pancreatitis 3. Nicotine dependence 4. Leukocytosis resolved 5. Hyponatremia PLAN: -HIDA scan ordered -Start clear liquid diet -Nothing by mouth after midnight -Patient scheduled for EGD tomorrow morning, 04/09/[address] Wayne -Continue Protonix -Continue Carafate -Repeat labs in a.m. Physician Registration Scheduling Specialist note has been reviewed by physician. Signing provider agrees with the documented findings, assessment, and plan of care. Objective - Vital Signs Vital signs: Vital Signs Temp 98.1 F 04/08/21 07:00 Pulse 70 04/08/21 07:00 Resp 16 04/08/21 07:00 BP 153/98 04/08/21 07:00 Pulse Ox 99 04/08/21 07:00 Intake & Output 04/07/21 04/08/21 04/08/21 18:59 06:59 18:59 Intake Total 300 Balance 300 Intake: Oral 300 Other: Voiding Method Toilet # Voids 3 2 - Labs CBC & Chem 7: 04/07/21 06:34 04/06/21 19:13
--- NOTE | 2021-04-08 14:55 | NM ---
EXAMINATION TYPE: NM hepatobiliary w CCK DATE OF EXAM: 04/08/2021 COMPARISON: Ultrasound gallbladder 04/07/2021 HISTORY: Epigastric pain TECHNIQUE: After the intravenous administration of 4.1 mCi Tc 99m Mebrofenin hepatobiliary scintigrap hy is performed. Immediate images post injection. FINDINGS: There is satisfactory initial accumulation of tracer by the liver. The gallbladder is visualized wit hin 8 minutes. The small bowel activity is noted within 8 minutes. At one hour CCK was administered , patient was injected with 1.9 mcg of Kinevac, and gallbladder ejection fraction is calculated at 97 %, above the upper limit of the normal range. Therefore there is no scintigraphic evidence of cysti c or common bile duct obstruction to suggest acute cholecystitis. IMPRESSION: Findings may represent hyperdynamic gallbladder, no cystic duct obstruction
[2021-04-08] MEDS ORDERED: NICOTINE 21MG/24HR PATCH TRANSDERM STA (21:52)
[2021-04-08] MEDS: HYDROcodone/APAP 10-325MG 1 EACH TAB PO PRN (22:48)
[2021-04-09 02:04] VITALS: RESP 16
[2021-04-09] MEDS: HYDROmorphone 1 MG/ML 1 ML SYRINGE IVP PRN ×3 (02:37→08:54)
[2021-04-09] MEDS: SODIUM CHLORIDE 0.9% 1,000 ML IV SCH ×2 (02:53→08:56)
[2021-04-09] MEDS: HYDROcodone/APAP 10-325MG 1 EACH TAB PO PRN ×2 (04:53→11:44)
[2021-04-09 06:10] LABS: Basophils # (A) 0.1 k/uL (0-0.2); Basophils % (A) 1 %; Eosinophils # (A) 0.2 k/uL (0-0.7); Eosinophils % (A) 3 %; HCT 35.6 % (39.0-53.0); HGB 11.9 gm/dL (13.0-17.5); Lymphocytes # (A) 1.7 k/uL (1.0-4.8); Lymphocytes % (A) 25 %; MCH 32.1 pg (25.0-35.0); MCHC 33.5 g/dL (31.0-37.0); MCV 95.8 fL (80.0-100.0); Mean Platelet Volume 7.3; Monocytes # (A) 0.4 k/uL (0-1.0); Monocytes % (A) 6 %; Neutrophils # (A) 4.3 k/uL (1.3-7.7); Neutrophils % (A) 63 %; Platelet Count 363 k/uL (150-450); RBC 3.71 m/uL (4.30-5.90); RDW 12.2 % (11.5-15.5); WBC 6.8 k/uL (3.8-10.6)
[2021-04-09 06:23] LABS: African American GFR (CKD) >90 (>60 ml/min/1.73 sqM); Anion Gap 6 mmol/L; Blood Urea Nitrogen 8 mg/dL (9-20); Calcium 8.7 mg/dL (8.4-10.2); Carbon Dioxide 27 mmol/L (22-30); Chloride 103 mmol/L (98-107); Glucose 104 mg/dL (74-99); Non-African American GFR(CKD) >90 (>60 ml/min/1.73 sqM); Potassium 3.7 mmol/L (3.5-5.1); Sodium 136 mmol/L (137-145)
[2021-04-09] MEDS: DOXYCYCLINE 100 MG CAP PO SCH (07:19)
[2021-04-09] MEDS: SUCRALFATE 1 GM TAB PO SCH ×2 (07:19→11:45)
[2021-04-09] MEDS: PANTOPRAZOLE 40 MG/10 ML VIAL IV SCH (07:19)
[2021-04-09] MEDS: lisinopriL 20 MG TAB PO SCH (07:19)
[2021-04-09] MEDS: ALPRAZolam 0.25 MG TAB PO SCH (07:19)
[2021-04-09] MEDS: buPROPion SR 150 MG TABLET.ER PO SCH (07:19)
[2021-04-09] MEDS: NON FORMULARY DRUG (Lubiprostone [Lubiprostone] 24 MCG Capsule) PO SCH (07:23)
[2021-04-09 07:41] VITALS: BP 147/94; PULSE 76; TEMP 97.7
[2021-04-09] MEDS ORDERED: PROPOFOL 10 MG/ML 20 ML VIAL IV ONE (10:50)
[2021-04-09] MEDS ORDERED: MIDAZOLAM 2 MG/2 ML VIAL ONE (10:50)
[2021-04-09] MEDS ORDERED: IV FLUID CONTINUATION 1,000 ML IV ONE (10:50)
[2021-04-09] MEDS ORDERED: LIDOCAINE 1% INJ 10MG/ML (20 ML MDV) ONE (10:50)
--- NOTE | 2021-04-09 11:10 | P.PCN ---
Date of Procedure: 04/09/21 Description of Procedure: PREOPERATIVE DIAGNOSIS: Gastrointestinal bleeding Acute blood loss anemia Epigastric abdominal pain POSTOPERATIVE DIAGNOSIS: Gastritis along the antrum Large broad based duodenal ulcer with mild obstruction or recent bleeding OPERATION: Esophagogastroduodenoscopy with biopsies along antrum. SURGEON: Vero Wayne MD ANESTHESIA: MAC. INDICATIONS: The patient is a 46-year-old male who presents with a history of reflux disease. Benefits and risks of the procedure were described. Informed consent was obtained. DESCRIPTION: The patient was brought into the endoscopy suite and laid in the left lateral decubitus position. An Olympus gastroscope was passed along the posterior oropharynx down to the distal esophagus where the squamocolumnar junction was encountered at 40 cm from the incisors. The stomach was entered and no bile reflux was found. Additional findings are listed below. Biopsies with cold forceps were obtained of the antrum. The first through third portion of the duodenum was examined and remarkable for large broad-based 1.5 cm ulcer with mild obstruction at second portion of duodenum with recent bleeding. Retroflexion of the scope confirmed Hill grade 2 lower esophageal valve. The squamocolumnar junction demonstrated LA grade B erosive esophagitis. The stomach was desufflated. The patient tolerated the procedure well. FINDINGS: Squamocolumnar junction 40 cm from the incisors. Diaphragmatic hiatus at 40 cm. Hill grade 4 lower esophageal valve. LA grade B erosive esophagitis. Large broad based duodenal ulcer 1.5 cm with recent obstruction and bleeding Chronic gastritis RECOMMENDATIONS: 1. Carafate 1 g 3 times a day 2. Omeprazole 40 mg twice a day or Protonix 40 mg twice a day 3. Strict tobacco cessation Plan - Discharge Summary Discharge Rx Participant: No New Discharge Prescriptions: No Action Zolpidem [Ambien] 5 mg PO HS PRN PRN Reason: Insomnia Diclofenac Sodium [Diclofenac Sodium ER] 100 mg PO BID lisinopriL [Zestril] 20 mg PO BID Lubiprostone 24 mg PO BID Doxycycline Monohydrate 100 mg PO BID buPROPion HCL [buPROPion HCL SR] 150 mg PO DAILY Discharge Medication List Diclofenac Sodium [Diclofenac Sodium ER] 100 mg PO BID 04/06/21 [History] Doxycycline Monohydrate 100 mg PO BID 04/06/21 [History] Lubiprostone 24 mg PO BID 04/06/21 [History] Zolpidem [Ambien] 5 mg PO HS PRN 04/06/21 [History] buPROPion HCL [buPROPion HCL SR] 150 mg PO DAILY 04/06/21 [History] lisinopriL [Zestril] 20 mg PO BID 04/06/21 [History] Follow up Appointment(s)/Referral(s): Nonstaff,Physician [REFERRING] - 1-2 days
[2021-04-09] MEDS ORDERED: NICOTINE 21MG/24HR PATCH TRANSDERM SCH (21:00)
== END 2021-04-09 12:15 | disposition home or self-care (01) ==
LOC: EC 18:21 → 6NMEDSUR 20:51
PROVIDERS: ADMIT Internal Medicine; ATTEND Internal Medicine
DX: K29.50 Unspecified chronic gastritis without bleeding (principal); K26.4 Chronic or unspecified duodenal ulcer with hemorrhage; D62 Acute posthemorrhagic anemia; K21.00 Gastro-esophageal reflux disease with esophagitis, without bleeding; I25.2 Old myocardial infarction; K57.30 Diverticulosis of large intestine without perforation or abscess without bleeding; F17.200 Nicotine dependence, unspecified, uncomplicated; F10.10 Alcohol abuse, uncomplicated; E86.1 Hypovolemia; E87.1 Hypo-osmolality and hyponatremia; K59.00 Constipation, unspecified; R19.7 Diarrhea, unspecified; F41.9 Anxiety disorder, unspecified; Z79.899 Other long term (current) drug therapy; Z88.8 Allergy status to other drugs, medicaments and biological substances; Z87.19 Personal history of other diseases of the digestive system; Z71.6 Tobacco abuse counseling; Z71.41 Alcohol abuse counseling and surveillance of alcoholic; Z98.890 Other specified postprocedural states
CPT/HCPCS: 43239; 99285; 96376 ×5; 96361 ×4; 96372; 96374; 96375; 36415; 86900; 86901; 88305; 80053; 80048; 82150; 82550; 83605; 83690 ×2; 85025 ×3; 85610; 85730; 86850; 82272; 81003; 74018; 76705; 74177; 78227; G0378 ×4; A9537; S4990 ×3; J2250; J0500; S0106 ×3; J2805; J2001; J1170 ×4; J2704; C9113 ×4; Q9967

== ENCOUNTER 2021-09-28 15:43 | Inpatient (IN) | payer OTHER ==
[2021-09-28 16:35] LABS: Basophils % (A) 0 %; Eosinophils # (A) 0.2 k/uL (0-0.7); Eosinophils % (A) 1 %; HGB 17.7 gm/dL (13.0-17.5); Lymphocytes # (A) 0.4 k/uL (1.0-4.8); Lymphocytes % (A) 2 %; MCH 32.3 pg (25.0-35.0); MCHC 34.7 g/dL (31.0-37.0); Mean Platelet Volume 7.1; Monocytes # (A) 0.4 k/uL (0-1.0); Monocytes % (A) 2 %; Neutrophils # (A) 17.3 k/uL (1.3-7.7); Neutrophils % (A) 94 %; Platelet Count 336 k/uL (150-450); RBC 5.48 m/uL (4.30-5.90); RDW 13.4 % (11.5-15.5); WBC 18.4 k/uL (3.8-10.6)
[2021-09-28 16:45] LABS: ALT 26 U/L (4-49); AST 27 U/L (17-59); African American GFR (CKD) >90 (>60 ml/min/1.73 sqM); Albumin 4.5 g/dL (3.5-5.0); Alkaline Phosphatase 98 U/L (38-126); Anion Gap 12 mmol/L; Blood Urea Nitrogen 14 mg/dL (9-20); Carbon Dioxide 18 mmol/L (22-30); Chloride 98 mmol/L (98-107); Glucose 165 mg/dL (74-99); Lipase 367 U/L (23-300); Non-African American GFR(CKD) >90 (>60 ml/min/1.73 sqM); Potassium 4.7 mmol/L (3.5-5.1); Sodium 128 mmol/L (137-145); Total Bilirubin 0.9 mg/dL (0.2-1.3); Total Protein 7.5 g/dL (6.3-8.2)
[2021-09-28 16:46] LABS: Partial Thromboplastin Time 24.6 sec (22.0-30.0); Prothrombin Time 11.2 sec (9.0-12.0)
[2021-09-28 16:49] LABS: Appearance,Urine Clear (Clear); Bilirubin,Urine Negative (Negative); Blood,Urine Negative (Negative); Color,Urine Yellow; Glucose,Urine (UA) Negative (Negative); Ketones,Urine Trace (Negative); Leukocyte Esterase,Urine Negative (Negative); Mucus,Urine Few /hpf; Nitrite,Urine Negative (Negative); Protein,Urine 1+ (Negative); RBC,Urine 2 /hpf (0-5); Squamous Epithelial Cell,Urine 1 /hpf (0-4); WBC,Urine 1 /hpf (0-5)
[2021-09-28] MEDS ORDERED: ONDANSETRON 4 MG/2 ML VIAL IVP STA (16:49)
[2021-09-28] MEDS ORDERED: PANTOPRAZOLE 40 MG/10 ML VIAL IVP STA (16:49)
[2021-09-28] MEDS ORDERED: HYDROmorphone 1 MG/ML 1 ML SYRINGE IVP STA ×2 (16:49→18:39)
[2021-09-28 16:50] LABS: Specific Gravity,Urine >1.050 (1.001-1.035)
--- NOTE | 2021-09-28 18:43 | CT ---
EXAMINATION TYPE: CT abdomen pelvis w con DATE OF EXAM: 09/28/2021 COMPARISON: 04/06/2021 HISTORY: abdominal pain, pancreatitis CT DLP: 874.8 mGycm Automated exposure control for dose reduction was used. CONTRAST: Performed with IV Contrast, patient injected with 100 mL of Isovue 300. Images obtained from the diaphragm to the floor the pelvis with IV contrast. Lung bases are clear. There is no pleural effusion. There is left-sided posterior diaphragmatic herni a that contains fat. Heart size is normal. There is no pericardial effusion. Liver spleen and stomach appear intact. Gallbladder is intact. The bile ducts are not dilated. There is no evidence of pancreatic mass. There is no adrenal mass. Kidneys show satisfactory contrast opacification. There is no hydronephrosi s. There is 2 cm cortical cyst lateral left kidney. There is no retroperitoneal adenopathy. Bladder d istends smoothly. There is no inguinal hernia. There is moderate low density free fluid in the pelvis and in the paracolic gutters. There is free ai r in the anterior abdomen. There is small amount of free air posterior to the right lobe of the liver . There is no bowel obstruction. Appendix is partially filled with air and appears normal. The lumbar vertebra have normal alignment. Posterior elements are intact. There is no compression fra cture. Bony pelvis is intact. The hip joints are intact. IMPRESSION: There is mild to moderate abdominal ascites fluid. Fluid appears new compared to old exam. There is pneumoperitoneum. Source of the air is not clear. Duodenal perforation more likely since the re is some air at the posterior right lobe of the liver. No sign of pancreatitis. Normal appendix. This exam was discussed with emergency room attending staff at 6:30 PM.
--- NOTE | 2021-09-28 18:45 | ED ---
Abdominal Pain HPI - General Chief Complaint: Abdominal Pain Stated Complaint: Abd.Pain Source: patient Mode of arrival: wheelchair Limitations: no limitations - History of Present Illness Initial Comments: 46-year-old male past history of duodenal ulcer, pancreatitis present to the emergency department with generalized abdominal pain. The pain originally started in epigastric region and now radiates down to his right groin, over to his left groin. Pain has been constant since it started at 12 PM. Denies history of similar in the past. Admits to nausea without vomiting. No fevers. Patient reports to some constipation. Also reports to changes in his urination. States that he's had dysuria and increased frequency. He did try to take some Pepto at home for her symptoms. No other alleviating, precipitating or modifying factors - Related Data Home Medications Medication Instructions Recorded Confirmed Diclofenac Sodium [Voltaren] 75 mg PO BID 09/28/21 09/28/21 Gabapentin [Neurontin] 300 mg PO BID 09/28/21 09/28/21 Omeprazole 40 mg PO DAILY 09/28/21 09/28/21 diazePAM [Valium] 5 mg PO QID PRN 09/28/21 09/28/21 oxyCODONE-APAP 10-325MG [Percocet 2 tab PO Q6H PRN 09/28/21 09/28/21 10-325 mg] Previous Rx's Medication Instructions Recorded Sucralfate [Carafate] 1 gm PO AC-TID #90 tab 04/09/21 Allergies Allergy/AdvReac Type Severity Reaction Status Date / Time cortisone Allergy Unknown Verified 09/28/21 17:08 prednisone Allergy Unknown Verified 09/28/21 17:08 Review of Systems ROS Statement: Those systems with pertinent positive or pertinent negative responses have been documented in the HPI. ROS Other: All systems not noted in ROS Statement are negative. Past Medical History Past Medical History: Myocardial Infarction ([place]) Additional Past Medical History / Comment(s): pancreatitis Last Myocardial Infarction Date:: Pt states 10 years ago. History of Any Multi-Drug Resistant Organisms: None Reported Past Surgical History: Orthopedic Surgery Additional Past Surgical History / Comment(s): left shoulder Past Anesthesia/Blood Transfusion Reactions: No Reported Reaction Past Psychological History: No Psychological Hx Reported Smoking Status: Current every day smoker Past Alcohol Use History: Daily Past Drug Use History: None Reported General Exam Limitations: no limitations Course Vital Signs 09/28/21 09/28/21 09/28/21 15:51 17:40 19:48 Temperature 96.9 F L 97.5 F L Pulse Rate 98 92 119 H Respiratory 16 20 16 Rate Blood Pressure 165/95 168/90 127/91 O2 Sat by Pulse 99 97 100 Oximetry - Reevaluation(s) Reevaluation #1: 09/28/21 18:[address] Wayne - fluids, pain medications, antibiotics, NPO Medical Decision Making - Medical Decision Making Upon arrival patient was placed into room 23. A thorough history and physical exam was performed. IV access established and the patient is given 1 mg of Dilaudid and 4 mg of Zofran. Laboratory studies are conducted which do demonstrate a white count of 18.4. Sodium 128. Lipase 367. CT is performed which demonstrates mild to moderate abdominal ascites fluid. Pneumoperitoneum with consideration for duodenal perforation as the areas posterior to the right lobe of the liver. This is discussed with Dr. Evans at 6:30. I did call and speak with Dr. Cadena as this is the patient's requested surgeon. Dr. Cadena does present to the emergency department and evaluates the patient. He'll be taken to the OR at this time. Orders for antibiotics, pain medications and nausea medications are ordered by the surgeon. - Lab Data Result diagrams: 09/28/21 16:23 09/28/21 16:23 Lab Results 09/28/21 09/28/21 09/28/21 Range/Units 16:23 16:23 16:23 WBC 18.4 H (3.8-10.6) k/uL RBC 5.48 (4.30-5.90) m/uL Hgb 17.7 H (13.0-17.5) gm/dL Hct 51.0 (39.0-53.0) % MCV 93.0 (80.0-100.0) fL MCH 32.3 (25.0-35.0) pg MCHC 34.7 (31.0-37.0) g/dL RDW 13.4 (11.5-15.5) % Plt Count 336 (150-450) k/uL MPV 7.1 Neutrophils % 94 % Lymphocytes % 2 % Monocytes % 2 % Eosinophils % 1 % Basophils % 0 % Neutrophils # 17.3 H (1.3-7.7) k/uL Lymphocytes # 0.4 L (1.0-4.8) k/uL Monocytes # 0.4 (0-1.0) k/uL Eosinophils # 0.2 (0-0.7) k/uL Basophils # 0.0 (0-0.2) k/uL PT (9.0-12.0) sec INR (<1.2) APTT (22.0-30.0) sec Sodium 128 L (137-145) mmol/L Potassium 4.7 (3.5-5.1) mmol/L Chloride 98 (98-107) mmol/L Carbon Dioxide 18 L (22-30) mmol/L Anion Gap 12 mmol/L BUN 14 (9-20) mg/dL Creatinine 0.63 L (0.66-1.25) mg/dL Est GFR (CKD-EPI)AfAm >90 (>60 ml/min/1.73 sqM) Est GFR (CKD-EPI)NonAf >90 (>60 ml/min/1.73 sqM) Glucose 165 H (74-99) mg/dL Plasma Lactic Acid Bogdan (0.7-2.0) mmol/L Calcium 11.0 H (8.4-10.2) mg/dL Total Bilirubin 0.9 (0.2-1.3) mg/dL AST 27 (17-59) U/L ALT 26 (4-49) U/L Alkaline Phosphatase 98 (38-126) U/L Total Protein 7.5 (6.3-8.2) g/dL Albumin 4.5 (3.5-5.0) g/dL Lipase 367 H (23-300) U/L Urine Color Yellow Urine Appearance Clear (Clear) Urine pH 6.0 (5.0-8.0) Ur Specific Fletcher >1.050 H (1.001-1.035) Urine Protein 1+ H (Negative) Urine Glucose (UA) Negative (Negative) Urine Ketones Trace H (Negative) Urine Blood Negative (Negative) Urine Nitrite Negative (Negative) Urine Bilirubin Negative (Negative) Urine Urobilinogen 2.0 (<2.0) mg/dL Ur Leukocyte Esterase Negative (Negative) Urine RBC 2 (0-5) /hpf Urine WBC 1 (0-5) /hpf Ur Squamous Epith Cells 1 (0-4) /hpf Urine Mucus Few H (None) /hpf 09/28/21 09/28/21 Range/Units 16:23 16:23 WBC (3.8-10.6) k/uL RBC (4.30-5.90) m/uL Hgb (13.0-17.5) gm/dL Hct (39.0-53.0) % MCV (80.0-100.0) fL MCH (25.0-35.0) pg MCHC (31.0-37.0) g/dL RDW (11.5-15.5) % Plt Count (150-450) k/uL MPV Neutrophils % % Lymphocytes % % Monocytes % % Eosinophils % % Basophils % % Neutrophils # (1.3-7.7) k/uL Lymphocytes # (1.0-4.8) k/uL Monocytes # (0-1.0) k/uL Eosinophils # (0-0.7) k/uL Basophils # (0-0.2) k/uL PT 11.2 (9.0-12.0) sec INR 1.0 (<1.2) APTT 24.6 (22.0-30.0) sec Sodium (137-145) mmol/L Potassium (3.5-5.1) mmol/L Chloride (98-107) mmol/L Carbon Dioxide (22-30) mmol/L Anion Gap mmol/L BUN (9-20) mg/dL Creatinine (0.66-1.25) mg/dL Est GFR (CKD-EPI)AfAm (>60 ml/min/1.73 sqM) Est GFR (CKD-EPI)NonAf (>60 ml/min/1.73 sqM) Glucose (74-99) mg/dL Plasma Lactic Acid Bogdan 1.3 (0.7-2.0) mmol/L Calcium (8.4-10.2) mg/dL Total Bilirubin (0.2-1.3) mg/dL AST (17-59) U/L ALT (4-49) U/L Alkaline Phosphatase (38-126) U/L Total Protein (6.3-8.2) g/dL Albumin (3.5-5.0) g/dL Lipase (23-300) U/L Urine Color Urine Appearance (Clear) Urine pH (5.0-8.0) Ur Specific Fletcher (1.001-1.035) Urine Protein (Negative) Urine Glucose (UA) (Negative) Urine Ketones (Negative) Urine Blood (Negative) Urine Nitrite (Negative) Urine Bilirubin (Negative) Urine Urobilinogen (<2.0) mg/dL Ur Leukocyte Esterase (Negative) Urine RBC (0-5) /hpf Urine WBC (0-5) /hpf Ur Squamous Epith Cells (0-4) /hpf Urine Mucus (None) /hpf Disposition Clinical Impression: Pneumoperitoneum, Intractable abdominal pain, Duodenal ulcer Disposition: ADMITTED IP TO THIS [facility] Condition: Serious Is patient prescribed a controlled substance at d/c from ED?: No Decision to Admit Reason: Admit from EC Decision Date: 09/28/21 Decision Time: 19:08
[2021-09-28] MEDS ORDERED: SODIUM CHLORIDE 0.9% 2,000 ML IV STA (18:51)
[2021-09-28] MEDS ORDERED: ONDANSETRON 4 MG/2 ML VIAL IVP PRN (19:07)
[2021-09-28] MEDS: PIPERACILLIN-TAZOBACTAM 3.375 GM in SODIUM CHLORIDE 0.9% 100 ML IVPB SCH (19:39)
--- NOTE | 2021-09-28 20:15 | P.GSHP ---
History of Present Illness H&P Date: 09/28/21 CHIEF COMPLAINT: Perforated duodenal ulcer HISTORY OF PRESENT ILLNESS: The patient is a 46 year old male with past history of bleeding duodenal ulcer diagnosed March 2021, 6 months ago. Patient was placed on a Carafate and Protonix regimen. Patient continued to smoke. He reports taking Diclofenac nonsteroidal anti-inflammatory for over 1 month. Family is at bedside. He was feeling moderate epigastric abdominal pain Manjeet, 2 days ago. This morning, patient woke up with severe 10 out of 10 pain. Reports poor oral intake for the last 2 days. Patient unable to lay down. Patient reports having a bite of toast 5 hours ago at 3 PM. Abdominal pain diffuse with walking. CT of the abdomen and pelvis demonstrates free air. PAST MEDICAL HISTORY: See list and reviewed PAST SURGICAL HISTORY: See list and reviewed MEDICATIONS: See list and reviewed ALLERGIES: See list and reviewed SOCIAL HISTORY: See list and reviewed FAMILY HISTORY: See list and reviewed REVIEW OF ORGAN SYSTEMS: CONSTITUTIONAL: No fevers or chills. EYES: Denies any trouble with vision. No glasses. HEENT: No difficulties with hearing. No nosebleeds. No difficulty swallowing. RESPIRATORY: Denies pneumonia. Has tobacco abuse. CARDIOVASCULAR: Past myocardial infarction. GASTROINTESTINAL: Personal history of bleeding duodenal ulcer. GENITOURINARY: Denies any blood in urine or increased urinary frequency. NEUROLOGICAL: Denies any numbness or tingling along the distal extremities. No seizure disorders or headaches. MUSCULOSKELETAL: Has back pain, stiffness or joint arthritis. Recent shoulder surgery. SKIN: No current skin cancer. No rash. PSYCHIATRIC: Denies current depression or suicidal thoughts. ENDOCRINE: Denies current thyroid disorders. Denies any blood sugar glucose intolerance. HEME/LYMPHATIC: Denies any lumps and bumps around the neck. No recent deep venous thrombosis. ALLERGY/IMMUNOLOGY: No immunoglobulin therapy. No immune deficiencies. BREAST: Denies current breast lumps, pain or nipple discharge. PHYSICAL EXAM: VITALS: Reviewed CONSTITUTIONAL: Well developed and in no acute distress. EYES: Conjuctivae without sclera icterus. Extraocular movements grossly intact. HEAD, EARS, NOSE, THROAT: Moist buccal mucosa. Head is atraumatic, normocephalic. Hears conversational speech. No nasal drainage. NECK: Supple. No JV distention. No thyroidomegaly. RESPIRATORY: Non-labored respirations and equal bilateral excursions. No gross wheezes. CARDIOVASCULAR: Palpable 2+ radial pulses. ABDOMEN: Has diffuse peritonitis. LYMPH: No neck lymphadenopathy. MUSCULOSKELETAL: Nail and fingers with good capillary refill. SKIN: Warm and well perfused with good skin turgor. NEUROLOGIC: Cranial nerves II through XII grossly intact. No focal or lateralizing signs. PSYCH: Appropriate affect. Alert and oriented to person, place and time. Displays appropriate insight. CLINCAL LABS: Reviewed. WBC elevated over 18,000. Hemoglobin elevated 17.7, hemoconcentration due to dehydration. IMAGING: Independently reviewed CT of the abdomen and pelvis demonstrating free air along the liver as well as inflammation and edema of the duodenum. This is my independent interpretation. RADIOLOGY: Report reviewed CT of the abdomen demonstrates free fluid in the pelvis including possible ruptured duodenal ulcer. ASSESSMENT: 1. Perforated duodenal ulcer in patient with known history of large duodenal ulcer 2. Tobacco abuse disorder 3. Dehydration 4. Peritonitis with pneumoperitoneum PLAN: 1. Recommend IV fluid hydration 2 L normal saline due to severe dehydration. 2. Emergent exploratory laparotomy with placement of ANU drain, nasogastric tube, anticipated hospital stay 7 days described. 3. Strict tobacco sensation. Patient has nicotine patch 21 mg 4. Avoid all nonsteroidal anti-inflammatories 5. Inpatient admission at least 5-7 days reviewed 6. IV antibiotic Zosyn described. Antifungal fluconazole postoperatively. 7. Patient elevated risk for complications due to severe dehydration, tobacco abuse disorder. 8. 12-lead EKG ordered Past Medical History Past Medical History: Myocardial Infarction ([place]) Additional Past Medical History / Comment(s): pancreatitis Last Myocardial Infarction Date:: Pt states 10 years ago. History of Any Multi-Drug Resistant Organisms: None Reported Past Surgical History: Orthopedic Surgery Additional Past Surgical History / Comment(s): left shoulder Past Anesthesia/Blood Transfusion Reactions: No Reported Reaction Past Psychological History: No Psychological Hx Reported Smoking Status: Current every day smoker Past Alcohol Use History: Daily Past Drug Use History: None Reported Medications and Allergies Home Medications Medication Instructions Recorded Confirmed Type Sucralfate [Carafate] 1 gm PO AC-TID #90 tab 04/09/21 09/28/21 Rx Diclofenac Sodium [Voltaren] 75 mg PO BID 09/28/21 09/28/21 History Gabapentin [Neurontin] 300 mg PO BID 01/30/22 01/30/22 History Omeprazole 40 mg PO DAILY 09/28/21 09/28/21 History diazePAM [Valium] 5 mg PO QID PRN 09/28/21 09/28/21 History oxyCODONE-APAP 10-325MG [Percocet 2 tab PO Q6H PRN 09/28/21 09/28/21 History 10-325 mg] Allergies Allergy/AdvReac Type Severity Reaction Status Date / Time cortisone Allergy Unknown Verified 09/28/21 17:08 prednisone Allergy Unknown Verified 09/28/21 17:08 Surgical - Exam Vital Signs Temp Pulse Resp BP Pulse Ox 96.9 F L 98 16 165/95 99 09/28/21 15:51 09/28/21 15:51 09/28/21 15:51 09/28/21 15:51 09/28/21 15:51 Results - Labs 09/28/21 16:23 09/28/21 16:23 Abnormal Lab Results - Last 24 Hours (Table) 09/28/21 09/28/21 09/28/21 Range/Units 16:23 16:23 16:23 WBC 18.4 H (3.8-10.6) k/uL Hgb 17.7 H (13.0-17.5) gm/dL Neutrophils # 17.3 H (1.3-7.7) k/uL Lymphocytes # 0.4 L (1.0-4.8) k/uL Sodium 128 L (137-145) mmol/L Carbon Dioxide 18 L (22-30) mmol/L Creatinine 0.63 L (0.66-1.25) mg/dL Glucose 165 H (74-99) mg/dL Calcium 11.0 H (8.4-10.2) mg/dL Lipase 367 H (23-300) U/L Ur Specific [facility] >1.050 H (1.001-1.035) Urine Protein 1+ H (Negative) Urine Ketones Trace H (Negative) Urine Mucus Few H (None) /hpf Diabetes panel 09/28/21 Range/Units 16:23 Sodium 128 L (137-145) mmol/L Potassium 4.7 (3.5-5.1) mmol/L Chloride 98 (98-107) mmol/L Carbon Dioxide 18 L (22-30) mmol/L BUN 14 (9-20) mg/dL Creatinine 0.63 L (0.66-1.25) mg/dL Glucose 165 H (74-99) mg/dL Calcium 11.0 H (8.4-10.2) mg/dL AST 27 (17-59) U/L ALT 26 (4-49) U/L Alkaline Phosphatase 98 (38-126) U/L Total Protein 7.5 (6.3-8.2) g/dL Albumin 4.5 (3.5-5.0) g/dL Calcium panel 09/28/21 Range/Units 16:23 Calcium 11.0 H (8.4-10.2) mg/dL Albumin 4.5 (3.5-5.0) g/dL Pituitary panel 09/28/21 Range/Units 16:23 Sodium 128 L (137-145) mmol/L Potassium 4.7 (3.5-5.1) mmol/L Chloride 98 (98-107) mmol/L Carbon Dioxide 18 L (22-30) mmol/L BUN 14 (9-20) mg/dL Creatinine 0.63 L (0.66-1.25) mg/dL Glucose 165 H (74-99) mg/dL Calcium 11.0 H (8.4-10.2) mg/dL Adrenal panel 09/28/21 Range/Units 16:23 Sodium 128 L (137-145) mmol/L Potassium 4.7 (3.5-5.1) mmol/L Chloride 98 (98-107) mmol/L Carbon Dioxide 18 L (22-30) mmol/L BUN 14 (9-20) mg/dL Creatinine 0.63 L (0.66-1.25) mg/dL Glucose 165 H (74-99) mg/dL Calcium 11.0 H (8.4-10.2) mg/dL Total Bilirubin 0.9 (0.2-1.3) mg/dL AST 27 (17-59) U/L ALT 26 (4-49) U/L Alkaline Phosphatase 98 (38-126) U/L Total Protein 7.5 (6.3-8.2) g/dL Albumin 4.5 (3.5-5.0) g/dL Assessment and Plan (1) Perforated duodenal ulcer Current Visit: Yes Status: Acute Code(s): K26.5 - CHRONIC OR UNSPECIFIED DUODENAL ULCER WITH PERFORATION SNOMED Code(s): 22074619 (2) Peritonitis (acute) generalized Current Visit: Yes Status: Acute Code(s): K65.0 - GENERALIZED (ACUTE) PERITONITIS SNOMED Code(s): 66570614 (3) Sepsis Current Visit: Yes Status: Acute Code(s): A41.9 - SEPSIS, UNSPECIFIED ORGANISM SNOMED Code(s): 99844903 (4) Dehydration Current Visit: Yes Status: Acute Code(s): E86.0 - DEHYDRATION SNOMED Code(s): 27341927 (5) Tobacco abuse disorder Current Visit: Yes Status: Acute Code(s): Z72.0 - TOBACCO USE SNOMED Code(s): 719328881 (6) Tobacco use disorder, mild, in sustained remission, abuse Current Visit: Yes Status: Acute Code(s): F17.201 - NICOTINE DEPENDENCE, UNSPECIFIED, IN REMISSION SNOMED Code(s): 167543732 (7) Pneumoperitoneum Current Visit: Yes Status: Acute Code(s): K66.8 - OTHER SPECIFIED DISORDERS OF PERITONEUM SNOMED Code(s): 39915479
[2021-09-28] MEDS ORDERED: ROCURONIUM 10 MG/ML (5 ML VIAL) IV ONE (20:55)
[2021-09-28] MEDS ORDERED: LIDOCAINE 1% INJ 10MG/ML (20 ML MDV) ONE (20:55)
[2021-09-28] MEDS ORDERED: NEOSTIGMINE 1 MG/ML 10 ML VIAL ONE (20:55)
[2021-09-28] MEDS ORDERED: GLYCOPYRROLATE 0.2 MG/ML 2 ML VIAL ONE (20:55)
[2021-09-28] MEDS ORDERED: fentaNYL (PF) 50 MCG/ML 2 ML AMP ONE (20:55)
[2021-09-28] MEDS ORDERED: SODIUM CHLORIDE 0.9% 100 ML with ceFAZolin 2,000 MG IV ONE ×2 (20:55)
[2021-09-28] MEDS ORDERED: SUCCINYLCHOLINE CHLORIDE 100 MG/5 ML SYR IV ONE (20:55)
[2021-09-28] MEDS ORDERED: IV FLUID CONTINUATION 1,000 ML IV ONE (20:55)
[2021-09-28] MEDS ORDERED: MIDAZOLAM 2 MG/2 ML VIAL ONE (20:55)
[2021-09-28] MEDS ORDERED: PROPOFOL 10 MG/ML 20 ML VIAL IV ONE (20:55)
[2021-09-28] MEDS ORDERED: HYDROmorphone (PF) 1 MG/ML ONE (20:55)
[2021-09-28] MEDS ORDERED: LACTATED RINGERS 1,000 ML IV ONE ×2 (21:15→22:07)
[2021-09-28] MEDS ORDERED: NALOXONE 0.4 MG/ML 1 ML VIAL IV PRN (22:26)
[2021-09-28] MEDS ORDERED: HYDROmorphone 1 MG/ML 1 ML SYRINGE IVP ONE (22:37)
--- NOTE | 2021-09-28 22:44 | P.OP ---
Date of Procedure: 09/28/21 Description of Procedure: SURGEON: CHRISTOPHE PAIGE MD BACKROOM ASSOCIATE: NONE. PREOPERATIVE DIAGNOSIS: 1. Acute perforated duodenal ulcer 2. Diffuse peritonitis, generalized 3. Abnormal computed tomography scan with intra-abdominal fluid and pneumoperitoneum 4. Tobacco abuse 5. Tobacco cessation and counseling 6. Chronic pain syndrome 7. Generalized anxiety disorder POSTOPERATIVE DIAGNOSIS: 1. Acute perforated duodenal ulcer 2. Diffuse peritonitis, generalized 3. Abnormal computed tomography scan with intra-abdominal fluid and pneumoperitoneum 4. Tobacco abuse 5. Tobacco cessation and counseling 6. Chronic pain syndrome 7. Generalized anxiety disorder 8. Abdominal ascites due to perforated duodenal ulcer OPERATION: 1. Exploratory laparotomy and lysis of adhesions, over 30 minutes 2. Open repair of perforated duodenal ulcer 3. Application of greater omental Celestine patch 4. Peritoneal lavage 4 L normal saline with drainage of ascites 5. Application of 20 cm PREVENA incisional wound VAC system 6. Placement of round #19 ANU drain anterior duodenal ulcer ANESTHESIA: General ESTIMATED BLOOD LOSS: 25 mL SPECIMENS REMOVED: Aerobic and anaerobic culture peritoneal fluid and fungal CONDITION: Stable. DISPOSITION: To the Floor. COMPLICATIONS: None. OPERATIVE FINDINGS: 1. Diffuse intra-abdominal ascites from perforated duodenal ulcer 2. Inflammation and edema of the second portion of the duodenum with bile staining anteriorly. 3. Omental patch for perforated anterior duodenal ulcer 4. ANU drain placed anterior to repair of duodenal ulcer, left ANU 5. At end of the case turbid peritoneal fluid was very clear irrigation fluid INDICATIONS: The patient is a 46-year-old male who presented 2 days after acute onset abdominal pain. She has personal history of large-based duodenal ulcer and recent use of high-dose NSAIDs and tobacco abuse disorder. Emergent surgical intervention was advised with exploratory laparotomy, repair of duodenal ulcer, placement of drain, including nasogastric tube. Benefits and risks of the procedures were discussed. Informed consent was obtained. DESCRIPTION: The patient was brought to the operating room. An epidural was placed per anesthesia. After general induction, a Mao catheter was placed. The abdomen was prepped and draped in standard sterile fashion. Ioban draping was also placed. Prior to incision, a timeout protocol was confirmed with surgical team regarding patient's name including procedures to be performed. Preoperative medications were confirmed. A #10 blade was used to enter along the epigastrium and extended down to the pubis. Carefully the abdomen was entered using electro- Bovie cautery. Immediate turbid gastric ascites was removed over 550 mL evacuated. Fibrinous exudate was found throughout the small bowel especially of the upper abdomen. To further explore the abdomen, the abdomen was irrigated with 4 L of warm normal saline solution until the aspirant was clear. Aerobic and anaerobic cultures were obtained of the peritoneal fluid prior to irrigation and sent for cultures. The small bowel was not dilated. The cecum was redundant with the appendix intact. The colon was was unremarkable and the rectum was palpated palpated. Moderate ascites of the pelvis was aspirated. The gallbladder was distended and adherent to the anterior wall of the duodenum which lysis of adhesions over 30 minutes was performed. Bile staining and inflammation of the third portion of the duodenum was found with adhesions. An omental patch was released from the greater omentum and reinforced using 3-0 silk pop offs along the anterior duodenal. Nasogastric tube was palpated and milked to the distal stomach at the antrum. Round #19 ANU drain was placed anterior to the duodenal repair. The ANU drain exited via the left upper quadrant and sewn in using 2-0 nylon. ANU bulbs was attached to negative suction. Hemostasis was excellent throughout the case. The abdomen was closed using double stranded 0 PDS. The skin was cleansed using dilute hydrogen peroxide. A 20-cm PREVENA incisional wound VAC dressing was placed with intact seal. At the end of the procedure, needle, sponge, and instrument count had been verified correct by the surgical supplies sterilizer. The patient was sent to the postanesthesia care unit extubated and in stable condition. Intraoperative findings were discussed with his family including anticipated hospitalization of 7-10 days, prolonged nothing by mouth status, IV antibiotics.
[2021-09-28] MEDS ORDERED: fentaNYL (PF) 50 MCG/ML 2 ML AMP IVP ONE ×2 (22:50→22:54)
[2021-09-28] MEDS: SODIUM CHLORIDE 0.9% 1,000 ML IV SCH (23:46)
[2021-09-28] MEDS: LORazepam 2 MG/ML INJ IV PRN (23:48)
[2021-09-28] MEDS: ONDANSETRON 4 MG/2 ML VIAL IVP SCH (23:48)
[2021-09-29] MEDS: HEPARIN SODIUM,PORCINE/PF 5,000 UNIT/0.5 ML SYRINGE SQ SCH ×4 (00:01→20:08)
[2021-09-29] MEDS: FLUCONAZOLE IN NACL,ISO-OSM 100 MG in SALINE 1 100ML.BAG IVPB SCH ×3 (00:14→21:19)
[2021-09-29] MEDS: PIPERACILLIN-TAZOBACTAM 3.375 GM in SODIUM CHLORIDE 0.9% 100 ML IVPB SCH ×3 (00:48→17:36)
[2021-09-29] MEDS: HYDROmorphone 1 MG/ML 1 ML SYRINGE IVP PRN ×3 (00:49→08:42)
[2021-09-29] MEDS: METOCLOPRAMIDE 5 MG/ML 2 ML VIAL IVP SCH ×4 (02:30→17:34)
[2021-09-29] MEDS: diphenhydrAMINE 50 MG/ML 1 ML VIAL IVP PRN (02:30)
[2021-09-29] MEDS: LORazepam 2 MG/ML INJ IV PRN ×4 (02:48→20:07)
[2021-09-29] MEDS ORDERED: BENZOCAINE SPRAY 1 CAN MUCOUS MEM PRN (04:13)
[2021-09-29] MEDS: ONDANSETRON 4 MG/2 ML VIAL IVP SCH ×3 (06:02→17:34)
[2021-09-29] MEDS: SODIUM CHLORIDE 0.9% 1,000 ML IV SCH ×2 (06:02→21:59)
[2021-09-29] MEDS: ACETAMINOPHEN IV (For NPO) 1,000 MG in EMPTY BAG 1 BAG IVPB SCH ×4 (06:03→17:34)
[2021-09-29] MEDS ORDERED: metroNIDAZOLE-NS PMX 500 MG in SALINE 100 100ML.BAG IVPB PRN (07:00)
--- NOTE | 2021-09-29 08:11 | P.PN ---
Subjective Progress Note Date: 09/29/21 CHIEF COMPLAINT: Perforated viscus HISTORY OF PRESENT ILLNESS: The patient is a 46-year-old male status post exploration for perforated duodenal ulcer with abdominal washout and omental patch, 09/28/2021. Patient has chronic pain. Overnight patient had pain issues. This morning, patient resting. ROS: No fevers or chills. No new chest pain. PHYSICAL EXAM: VITAL SIGNS: Reviewed CONSTITUTIONAL: Well developed and in no acute distress. EYES: Conjuctivae without sclera icterus. Extraocular movements grossly intact. HEAD, EARS, NOSE, THROAT: Moist buccal mucosa. Head is atraumatic, normoc ephalic. Hears conversational speech. NG tube present. RESPIRATORY: Non-labored respirations and equal bilateral excursions. CARDIOVASCULAR: Palpable 2+ radial pulses. ABDOMEN: Dressing intact. MUSCULOSKELETAL: No gross deformity of the lower extremities noted. No clubbing. No cyanosis. SKIN: Good skin turgor. Well perfused. NEUROLOGIC: Cranial nerves II through XII grossly intact. No focal or lateralizing signs. PSYCH: Appropriate affect. Alert and oriented to person, place and time. CLINICAL LABS: Reviewed. Pending. ASSESSMENT: 1. Perforated duodenal ulcer. 2. Chronic pain 3. Generalized anxiety disorder 4. Tobacco abuse disorder PLAN: 1. Recommend urine drug screen for baseline history of high narcotic use and poor pain management 2. Hold heparin for placement of epidural following recent emergency surgery 3. Add antifungal prophylaxis due to perforated viscus Objective - Vital Signs Vital signs: Vital Signs Temp 98 F 09/28/21 22:31 Pulse 102 H 09/29/21 01:05 Resp 20 09/29/21 00:05 BP 143/90 09/29/21 01:05 Pulse Ox 96 09/28/21 23:16 Intake & Output 09/28/21 09/29/21 09/29/21 18:59 06:59 18:59 Intake Total 2700 Output Total 825 Balance 1875 Weight 89.811 kg 89.811 kg Intake: IV 2700 Output: Urine 800 Estimated Blood Loss 25 Other: Voiding Method Toilet Indwelling Catheter - Labs CBC & Chem 7: 09/28/21 16:23 09/28/21 16:23 Labs: Abnormal Lab Results - Last 24 Hours (Table) 09/28/21 09/28/21 09/28/21 Range/Units 16:23 16:23 16:23 WBC 18.4 H (3.8-10.6) k/uL Hgb 17.7 H (13.0-17.5) gm/dL Neutrophils # 17.3 H (1.3-7.7) k/uL Lymphocytes # 0.4 L (1.0-4.8) k/uL Sodium 128 L (137-145) mmol/L Carbon Dioxide 18 L (22-30) mmol/L Creatinine 0.63 L (0.66-1.25) mg/dL Glucose 165 H (74-99) mg/dL Calcium 11.0 H (8.4-10.2) mg/dL Lipase 367 H (23-300) U/L Ur Specific [facility] >1.050 H (1.001-1.035) Urine Protein 1+ H (Negative) Urine Ketones Trace H (Negative) Urine Mucus Few H (None) /hpf Assessment and Plan (1) Perforated duodenal ulcer Current Visit: Yes Status: Acute Code(s): K26.5 - CHRONIC OR UNSPECIFIED DUODENAL ULCER WITH PERFORATION SNOMED Code(s): 01944214 (2) Peritonitis (acute) generalized Current Visit: Yes Status: Acute Code(s): K65.0 - GENERALIZED (ACUTE) PERITONITIS SNOMED Code(s): 14992648 (3) Sepsis Current Visit: Yes Status: Acute Code(s): A41.9 - SEPSIS, UNSPECIFIED ORGANISM SNOMED Code(s): 25737332 (4) Dehydration Current Visit: Yes Status: Acute Code(s): E86.0 - DEHYDRATION SNOMED Code(s): 71449098 (5) Tobacco abuse disorder Current Visit: Yes Status: Acute Code(s): Z72.0 - TOBACCO USE SNOMED Code(s): 368113891 (6) Tobacco use disorder, mild, in sustained remission, abuse Current Visit: Yes Status: Acute Code(s): F17.201 - NICOTINE DEPENDENCE, UNSPECIFIED, IN REMISSION SNOMED Code(s): 702983824 (7) Pneumoperitoneum Current Visit: Yes Status: Acute Code(s): K66.8 - OTHER SPECIFIED DISORDERS OF PERITONEUM SNOMED Code(s): 76393620
[2021-09-29] MEDS: PANTOPRAZOLE 40 MG/10 ML VIAL IV SCH ×2 (08:45→20:08)
[2021-09-29] MEDS: NICOTINE 21MG/24HR PATCH TRANSDERM SCH (08:45)
[2021-09-29 09:00] LABS: Basophils # (A) 0.03 X 10*3/uL (0.00-0.10); Basophils % (A) 0.2 %; Eosinophils # (A) 0 X 10*3/uL (0.04-0.35); Eosinophils % (A) 0 %; HCT 41.7 % (39.6-50.0); HGB 14.1 g/dL (13.0-17.0); Immature Grans, Automated 0.2 %; Lymphocytes # (A) 0.63 X 10*3/uL (0.90-5.00); Lymphocytes % (A) 4.9 %; MCH 31.1 pg (27.0-32.0); MCHC 33.8 g/dL (32.0-37.0); MCV 91.9 fL (80.0-97.0); Mean Platelet Volume 9.5 fL (9.5-12.2); Monocytes % (A) 3.9 %; NRBC Per 100 WBC 0 /100 WBCS (0.0-0.0); Neutrophils # (A) 11.79 X 10*3/uL (1.80-7.70); Neutrophils % (A) 90.8 %; Platelet Count 277 X 10*3/uL (140-440); RBC 4.54 X 10*6/uL (4.40-5.60); RDW 13.3 % (11.5-14.5); WBC 12.98 X 10*3/uL (4.50-10.00)
[2021-09-29 09:13] LABS: African American GFR (CKD) 132.1 (60.0-200.0); Albumin 3.8 g/dL (3.8-4.9); Albumin/Globulin Ratio 2.53 (1.60-3.17); Anion Gap 9.9 mmol/L (10.00-18.00); BUN/Creat Ratio 14.43 Ratio (12.00-20.00); Blood Urea Nitrogen 10.1 mg/dL (9.0-27.0); Carbon Dioxide 20.1 mmol/L (20.0-27.5); Globulin 1.5 g/dL (1.6-3.3); Potassium 4.6 mmol/L (3.5-5.5); Total Bilirubin 0.5 mg/dL (0.30-1.20); Total Protein 5.3 g/dL (6.2-8.2)
[2021-09-29 09:14] LABS: Magnesium 1.4 mg/dL (1.5-2.4)
[2021-09-29 09:42] LABS: INR 1.09 (0.90-1.11); Prothrombin Time 11.9 sec (9.9-11.9)
[2021-09-29 10:01] LABS: Amphetamine Screen,Urine Not Detected (NotDetected); Barbiturate Screen,Urine Not Detected (NotDetected); Benzodiazepines Screen,Urine Detected (NotDetected); Cocaine Screen,Urine Not Detected (NotDetected); Methadone Screen, Urine Not Detected (NotDetected); Opiate Screen,Urine Detected (NotDetected); Oxycodone Screen, Urine Not Detected (NotDetected); Phencyclidine Screen,Urine Not Detected (NotDetected); Tricyclic Antidepressant,Urine Not Detected (NotDetected); Urn Cannabinoid Scrn Not Detected (NotDetected)
[2021-09-29] MEDS ORDERED: LIDOCAINE 1% INJ 10MG/ML (20 ML MDV) ONE (10:13)
[2021-09-29 10:16] VITALS: BMI 25.4
[2021-09-29] MEDS ORDERED: HYDROmorphone 1 MG/ML 1 ML SYRINGE IVP ONE (10:33)
[2021-09-29] MEDS ORDERED: LIDOCAINE 1% INJ 10MG/ML (20 ML MDV) SQ ONE (10:42)
[2021-09-29] MEDS: IV FLUID CONTINUATION 850 ML IV ONE ×2 (11:27→21:58)
[2021-09-29] MEDS ORDERED: MIDAZOLAM 2 MG/2 ML VIAL IV ONE (11:35)
[2021-09-29] MEDS ORDERED: fentaNYL (PF) 50 MCG/ML 2 ML AMP IV ONE (11:35)
[2021-09-29] MEDS ORDERED: SODIUM CHLORIDE 0.9% (PF) 10 ML VIAL IV ONE ×2 (11:54)
[2021-09-29] MEDS ORDERED: LIDOCAINE 1% INJ 10MG/ML (20 ML MDV) IV ONE ×2 (11:54)
[2021-09-29] MEDS ORDERED: NALOXONE 0.4 MG/ML 1 ML VIAL IV PRN (11:54)
[2021-09-29] MEDS ORDERED: LACTATED RINGERS 1,000 ML IV ONE (11:56)
--- NOTE | 2021-09-29 11:58 | P.ANPRN ---
Procedure Note - Anesthesia - Epidural/Spinal Epidural Continuous Time Out Performed: Yes Date of Procedure: 09/29/21 Procedure Start Time: 10:45 Procedure Stop Time: 10:55 Location of Patient: PreOp Indication: Acute Post-Operative Pain, Requested by Surgeon Sedation Type: Sedate with meaningful contact maintained Preparation: Sterile Dressing Position: Sitting Catheter: Indwelling Needle Guage: 18 Injectate: Test Dose Lidocaine1.5% w/1:200,000 epi Blood Aspirated: No Pain Paresthesia on Injection Noted: No Events: Uneventful and Well Tolerated (BOULUS WITH LIDOCAINE 1 % 6 ML GIVEN)
--- NOTE | 2021-09-29 12:04 | IR ---
EXAMINATION TYPE: IR cvc insert >=5 years DATE OF EXAM: 09/29/2021 COMPARISON: NONE CLINICAL HISTORY: Bowel surgery Needs long-term intravenous access for total parenteral nutrition. PROCEDURE: Hand hygiene obtained with soap and water and alcohol-based hand rub. After informed consent, the skin overlying the right basilic vein was localized with ultrasound and n oted to be compressible and patent. An ultrasound image was obtained and submitted on the patient's chart. The overlying skin was prepped and draped and Lidocaine was used for local anesthesia. A ski n abran was made with a scalpel. Access was gained to the vein under ultrasound guidance with a 21 ga uge needle and a 0.018 inch wire was advanced. Access site was dilated with Peel-Away sheath and cat heter tailored to the appropriate length and advanced such that the distal tip is at the cavoatrial j unction. Spot image was obtained verifying placement. Catheter was fixed to the skin and a sterile dressing was placed following hemostasis. Catheter was aspirated and flushed with saline. Patient w as discharged in stable condition without complication. Maximal barrier technique is utilized. Ultra sound image is documented on the chart. Ultrasound used with sterile technique. Fluoro time and fluoroscopic images submitted to document procedure: 153 intraoperative images, 0.4 m inutes fluoroscopy time IMPRESSION: STATUS POST ULTRASOUND AND FLUOROSCOPIC GUIDED PICC LINE PLACEMENT, READY FOR USE. THIS PROCEDURE WAS PERFORMED BY THE UNDERSIGNED.
[2021-09-29] MEDS: ROPIVACAINE 250 MG, HYDROMORPHONE (PF) 7.5 MG in SODIUM CHLORIDE 0.9% 199 ML EPIDURAL PRN (12:33)
[2021-09-29] MEDS ORDERED: SODIUM CHLORIDE 0.9% 1,000 ML IV ONE (12:45)
[2021-09-29 14:06] LABS: Phosphorus 4.4 mg/dL (2.4-5.1); Triglycerides 65.3 mg/dL (0.00-149.00)
[2021-09-29] MEDS: MAGNESIUM SULFATE-D5W PMX 1 GM in DEXTROSE/WATER 1 100ML.BAG IVPB SCH ×3 (14:23→16:23)
[2021-09-29] MEDS ORDERED: MVI, ADULT NO.4 WITH VIT K 10 ML, TRACE (CONC-1ML/DOSE) 1 ML in AMINO ACID 5%-D20W+LYTE... IV SCH ×3 (15:30)
[2021-09-29] MEDS ORDERED: FAT EMULSION 20% 500 ML in EMPTY BAG 1 BAG IV SCH (18:00)
[2021-09-29] MEDS ORDERED: HYDROmorphone 0.5 MG/0.5 ML SYRINGE ONE (20:52)
[2021-09-29] MEDS ORDERED: HYDROmorphone 0.5 MG/0.5 ML SYRINGE IVP STA (21:03)
[2021-09-30] MEDS: METOCLOPRAMIDE 5 MG/ML 2 ML VIAL IVP SCH ×5 (00:26→23:24)
[2021-09-30] MEDS: ONDANSETRON 4 MG/2 ML VIAL IVP SCH ×5 (00:26→23:24)
[2021-09-30] MEDS: PIPERACILLIN-TAZOBACTAM 3.375 GM in SODIUM CHLORIDE 0.9% 100 ML IVPB SCH ×4 (00:27→23:24)
[2021-09-30] MEDS: MAGNESIUM SULFATE-D5W PMX 1 GM in DEXTROSE/WATER 1 100ML.BAG IVPB SCH (00:40)
[2021-09-30] MEDS: SODIUM CHLORIDE 0.9% 1,000 ML IV SCH ×4 (00:40→20:19)
[2021-09-30] MEDS: HYDROmorphone 0.5 MG/0.5 ML SYRINGE IVP PRN ×7 (00:46→16:24)
[2021-09-30] MEDS: LORazepam 2 MG/ML INJ IV PRN ×5 (04:23→20:22)
[2021-09-30 05:06] LABS: African American GFR (CKD) >90 (>60 ml/min/1.73 sqM); Anion Gap 6 mmol/L; Blood Urea Nitrogen 11 mg/dL (9-20); Calcium 8.4 mg/dL (8.4-10.2); Carbon Dioxide 20 mmol/L (22-30); Chloride 103 mmol/L (98-107); Glucose 120 mg/dL (74-99); Non-African American GFR(CKD) >90 (>60 ml/min/1.73 sqM); Phosphorus 3.5 mg/dL (2.5-4.5); Potassium 3.6 mmol/L (3.5-5.1); Sodium 129 mmol/L (137-145)
[2021-09-30 05:30] LABS: Ionized Calcium 4.8 mg/dL (4.5-5.3)
--- NOTE | 2021-09-30 07:00 | P.PN ---
Progress Note - Text Progress Note Date: 09/30/21 Postoperative day # 2 status post explaretory laparotomy ,epidural catheter placed 09/29? 2021 for , postoperative analgesia,epidural site okay, patient currently on combination of epidural infusion solution of Ropivacaine 0.0625% and Dilaudid 30 g per mL the infusion rate at 9 ml per hour , patient had no motor deficit epidural site okay , vital signs stable ,VAS 5 /10 , she receiving Dilaudid 0.5 mg IV every one hour. When necessary for breakthrough pain Assessment and plan= post operative day # 2 , catheter day 1 , there is no anesthesia related complications, pain control improved we'll continue current management
[2021-09-30] MEDS: NICOTINE 21MG/24HR PATCH TRANSDERM SCH (08:15)
[2021-09-30 09:10] LABS: Basophils # (A) 0.05 X 10*3/uL (0.00-0.10); Basophils % (A) 0.5 %; Eosinophils # (A) 0.06 X 10*3/uL (0.04-0.35); Eosinophils % (A) 0.6 %; HCT 38.1 % (39.6-50.0); HGB 12.6 g/dL (13.0-17.0); Immature Grans, Automated 0.4 %; Lymphocytes # (A) 1.17 X 10*3/uL (0.90-5.00); Lymphocytes % (A) 11.3 %; MCH 30.7 pg (27.0-32.0); MCHC 33.1 g/dL (32.0-37.0); MCV 92.9 fL (80.0-97.0); Mean Platelet Volume 9.9 fL (9.5-12.2); Monocytes # (A) 0.73 X 10*3/uL (0.20-1.00); NRBC Per 100 WBC 0 /100 WBCS (0.0-0.0); Neutrophils # (A) 8.35 X 10*3/uL (1.80-7.70); Neutrophils % (A) 80.2 %; Platelet Count 255 X 10*3/uL (140-440); RDW 13.5 % (11.5-14.5)
[2021-09-30] MEDS: HEPARIN SODIUM,PORCINE/PF 5,000 UNIT/0.5 ML SYRINGE SQ SCH ×2 (09:30→20:25)
[2021-09-30] MEDS: diphenhydrAMINE 50 MG/ML 1 ML VIAL IVP PRN ×2 (09:31→22:04)
[2021-09-30] MEDS: PANTOPRAZOLE 40 MG/10 ML VIAL IV SCH ×2 (09:31→20:26)
[2021-09-30] MEDS: POTASSIUM CHLORIDE 10 MEQ in WATER FOR INJECTION 1 100ML.BAG IVPB SCH ×2 (11:17→12:26)
--- NOTE | 2021-09-30 13:27 | P.PN ---
<Jenna Levine - Last Filed: 09/30/21 13:21> Subjective Progress Note Date: 09/30/21 CHIEF COMPLAINT: Perforated viscus HISTORY OF PRESENT ILLNESS: The patient is a 46-year-old male status post exploration for perforated duodenal ulcer with abdominal washout and omental patch, 09/28/2021. Patient has chronic pain. Patient currently has epidural in place. Patient is complaining of pain but reports that his pain is less than yesterday. He does report some nausea. Denies any flatus or BM. ANU drain with 80ml serosanguineous output. Afebrile WBC 10.4 hemoglobin 12.6 platelets 255 sodium 129 potassium 3.6 creatinine 0.1 Drug screen positive for opiates and benzodiazepine PHYSICAL EXAM: VITAL SIGNS: Reviewed GENERAL: Well-developed in no acute distress. HEENT: No sclera icterus. Extraocular movements grossly intact. Moist buccal mucosa. Head is atraumatic, normocephalic. Hears conversational speech. No nasal drainage. NECK: Supple without lymphadenopathy. CHEST: Non-labored respirations and equal bilateral excursions. CARDIOVASCULAR: Palpable 2+ radial pulses. ABDOMEN: Mildly distended. Abdominal binder in place. MUSCULOSKELETAL: No clubbing or cyanosis. NEUROLOGIC: No focal or lateralizing signs. Cranial nerves II through XII grossly intact. PSYCH: Appropriate affect. Alert and oriented to person, place and time. SKIN: Well perfused. Good skin turgor. ASSESSMENT: 1. Perforated duodenal ulcer 2. Chronic pain 3. Generalized anxiety disorder 4. 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 Signing provider agrees with the documented findings, assessment, and plan of care. Objective - Vital Signs Vital signs: Vital Signs Temp 98.4 F 09/30/21 09:00 Pulse 99 09/30/21 09:00 Resp 16 09/30/21 09:00 BP 142/82 09/30/21 09:00 Pulse Ox 87 L 09/30/21 02:00 Intake & Output 09/29/21 09/30/21 09/30/21 18:59 06:59 18:59 Intake Total 900 2460 Output Total 1640 1850 460 Balance -740 610 -460 Weight 89.811 kg Intake: IV 900 Intake, IV Titration 2460 Amount Fat Emulsion 20% 500 ml 500 In Empty Bag 1 bag @ 42 mls/hr IV Q7D SHANNAN Rx#: [id number] Fluconazole in NaCl,Iso- 100 Osm 100 mg In Saline 1 100ml.bag @ 100 mls/hr IVPB Q24H SHANNAN Rx#: [id number] Magnesium Sulfate-D5w Pmx 100 1 gm In Dextrose/Water 1 100ml.bag @ 100 mls/hr IVPB Q1H SHANNAN Rx#: [id number] Mvi, Adult No.4 with Vit 360 K 10 ml Trace (Conc-1Ml/ Dose) 1 ml In Amino Acid 5%-D20w+Lytes*E* 1,000 ml @ 95 mls/hr IV .BY DURATION SHANNAN Rx#: [id number] Piperacillin-Tazobactam 3 100 .375 gm In Sodium Chloride 0.9% 100 ml @ 25 mls/hr IVPB Q8HR SHANNAN Rx# :[id number] Sodium Chloride 0.9% 1, 100 000 ml @ 130 mls/hr IV . Q7H42M SHANNAN Rx#:[id number] Sodium Chloride 0.9% 100 1200 ml @ 0 mls/hr IV .STK-MED ONE with ceFAZolin 2,000 mg Rx#:[id number] Output: Drainage 40 40 Abdomen 40 40 Urine 1600 1850 420 Uretheral (Mao) 20 Other: Voiding Method Indwelling Catheter Indwelling Catheter Indwelling Catheter - Labs CBC & Chem 7: 09/30/21 04:26 09/30/21 04:26 Labs: Abnormal Lab Results - Last 24 Hours (Table) 09/30/21 09/30/21 Range/Units 04:26 04:26 WBC 10.40 H (4.50-10.00) X 10*3/uL RBC 4.10 L (4.40-5.60) X 10*6/uL Hgb 12.6 L (13.0-17.0) g/dL Hct 38.1 L (39.6-50.0) % Neutrophils # 8.35 H (1.80-7.70) X 10*3/uL Sodium 129 L (137-145) mmol/L Carbon Dioxide 20 L (22-30) mmol/L Glucose 120 H (74-99) mg/dL Microbiology - Last 24 Hours (Table) 09/28/21 21:20 Gram Stain - Preliminary Peritoneal Fluid Body Fluid Culture - Preliminary 09/28/21 21:20 Anaerobic Culture - Preliminary Peritoneal Fluid <Vero Wayne N - Last Filed: 10/02/21 16:12> Subjective CHIEF COMPLAINT: Perforated duodenal ulcer HISTORY OF PRESENT ILLNESS: The patient is a 46 year old male presented with perforated viscus due to perforated duodenal ulcer. Patient status post exploratory laparotomy with peritoneal lavage and omental patch. He has baseline history of severe uncontrolled chronic pain. Epidural placement performed. REVIEW OF ORGAN SYSTEMS:No fevers. No chills. No acute chest pain. Has chronic pain PHYSICAL EXAM: VITALS: Reviewed CONSTITUTIONAL: Well developed and in no acute distress. EYES: Conjuctivae without sclera icterus. Extraocular movements grossly intact. HEAD, EARS, NOSE, THROAT: Moist buccal mucosa. Head is atraumatic, normocephalic. Hears conversational speech. No nasal drainage. NG tube present. RESPIRATORY: Non-labored respirations and equal bilateral excursions. No gross wheezes. CARDIOVASCULAR: Palpable 2+ radial pulses. ABDOMEN: Diffusely tender. MUSCULOSKELETAL: Nail and fingers with good capillary refill. SKIN: Warm and well perfused with good skin turgor. NEUROLOGIC: Cranial nerves II through XII grossly intact. No focal or lateralizing signs. PSYCH: Alert and oriented to person, place and time. Displays appropriate insight. CLINCAL LABS: Reviewed. WBC elevated over 10,000. Hemoglobin down 12.6, dilutional ASSESSMENT: 1. Perforated duodenal ulcer 2. Tobacco abuse disorder 3. Chronic pain syndrome PLAN: 1. Continue epidural for pain management 2. Continue nothing by mouth status with TPN for inadequate protein oral intake 3. Will need upper GI and upper endoscopy for follow-up Objective - Vital Signs Vital signs: Vital Signs Temp 99.4 F 10/02/21 14:00 Pulse 86 10/02/21 14:00 Resp 16 10/02/21 14:00 BP 155/89 10/02/21 14:00 Pulse Ox 95 10/02/21 14:00 Intake & Output 10/01/21 10/02/21 10/02/21 18:59 06:59 18:59 Intake Total 207.633 337.233 Output Total 140 400 Balance 67.633 -400 337.233 Weight 89.811 kg Intake: IV 100 Intake, IV Titration 207.633 237.233 Amount Ropivacaine 250 mg 207.633 237.233 Hydromorphone (Pf) 7.5 mg In Sodium Chloride 0.9% 199 ml @ Per Protocol EPIDURAL .Q0M PRN Rx#: [id number] Oral 0 Output: Gastric Drainage 50 Drainage 90 Abdomen 90 Urine 400 Other: Voiding Method Urinal Urinal # Voids 2 3 - Labs CBC & Chem 7: 10/02/21 04:50 10/02/21 04:50 Labs: Abnormal Lab Results - Last 24 Hours (Table) 10/02/21 10/02/21 Range/Units 04:50 04:50 Lymphocytes # 0.8 L (1.0-4.8) k/uL Sodium 131 L (137-145) mmol/L Chloride 97 L (98-107) mmol/L Glucose 144 H (74-99) mg/dL Phosphorus 4.9 H (2.5-4.5) mg/dL Microbiology - Last 24 Hours (Table) 09/28/21 21:20 Gram Stain - Preliminary Peritoneal Fluid Body Fluid Culture - Preliminary 10/01/21 15:57 Gram Stain - [facility] - Preliminary 09/28/21 21:20 Anaerobic Culture - Preliminary Peritoneal Fluid Assessment and Plan (1) Perforated duodenal ulcer Current Visit: Yes Status: Acute Code(s): K26.5 - CHRONIC OR UNSPECIFIED DUODENAL ULCER WITH PERFORATION SNOMED Code(s): 15648638 (2) Peritonitis (acute) generalized Current Visit: Yes Status: Acute Code(s): K65.0 - GENERALIZED (ACUTE) PERITONITIS SNOMED Code(s): 40645143 (3) Sepsis Current Visit: Yes Status: Acute Code(s): A41.9 - SEPSIS, UNSPECIFIED ORGANISM SNOMED Code(s): 48416399 (4) Dehydration Current Visit: Yes Status: Acute Code(s): E86.0 - DEHYDRATION SNOMED Code(s): 36575104 (5) Tobacco abuse disorder Current Visit: Yes Status: Acute Code(s): Z72.0 - TOBACCO USE SNOMED Code(s): 439236866 (6) Tobacco use disorder, mild, in sustained remission, abuse Current Visit: Yes Status: Acute Code(s): F17.201 - NICOTINE DEPENDENCE, UNSPECIFIED, IN REMISSION SNOMED Code(s): 158826344 (7) Pneumoperitoneum Current Visit: Yes Status: Acute Code(s): K66.8 - OTHER SPECIFIED DISORDERS OF PERITONEUM SNOMED Code(s): 01199749
[2021-09-30] MEDS: 1: MVI, ADULT NO.4 WITH VIT K 10 ML, TRACE (CONC-1ML/DOSE) 1 ML, PARENTERAL ELECTROLYTES IV SCH ×5 (14:39)
[2021-09-30] MEDS: ROPIVACAINE 250 MG, HYDROMORPHONE (PF) 7.5 MG in SODIUM CHLORIDE 0.9% 199 ML EPIDURAL PRN (16:04)
[2021-09-30] MEDS: HYDROmorphone 1 MG/ML 1 ML SYRINGE IVP PRN ×2 (20:23→23:23)
[2021-09-30] MEDS: FLUCONAZOLE IN NACL,ISO-OSM 100 MG in SALINE 1 50ML.BAG IVPB SCH (22:04)
[2021-10-01] MEDS: LORazepam 2 MG/ML INJ IV PRN ×5 (00:18→22:39)
[2021-10-01] MEDS: 1: MVI, ADULT NO.4 WITH VIT K 10 ML, TRACE (CONC-1ML/DOSE) 1 ML, PARENTERAL ELECTROLYTES IV SCH ×12 (02:07→15:17)
[2021-10-01] MEDS: HYDROmorphone 1 MG/ML 1 ML SYRINGE IVP PRN ×6 (03:38→21:06)
[2021-10-01] MEDS: SODIUM CHLORIDE 0.9% 1,000 ML IV SCH (03:40)
[2021-10-01 05:33] LABS: African American GFR (CKD) >90 (>60 ml/min/1.73 sqM); Anion Gap 7 mmol/L; Blood Urea Nitrogen 12 mg/dL (9-20); Calcium 8.4 mg/dL (8.4-10.2); Carbon Dioxide 23 mmol/L (22-30); Chloride 101 mmol/L (98-107); Glucose 130 mg/dL (74-99); Magnesium 1.7 mg/dL (1.6-2.3); Non-African American GFR(CKD) >90 (>60 ml/min/1.73 sqM); Phosphorus 4.4 mg/dL (2.5-4.5); Potassium 3.8 mmol/L (3.5-5.1); Sodium 131 mmol/L (137-145)
[2021-10-01] MEDS: METOCLOPRAMIDE 5 MG/ML 2 ML VIAL IVP SCH ×3 (06:05→17:01)
[2021-10-01] MEDS: ONDANSETRON 4 MG/2 ML VIAL IVP SCH ×3 (06:05→17:01)
--- NOTE | 2021-10-01 07:23 | P.PN ---
Progress Note - Text Progress Note Date: 10/01/21 Patient was seen and evaluated at bedside. Postop day # 2 status post exploratory laparotomy . As per RN patient is requesting Dilaudid IV 1 mg every 3 hours along with Ativan. Patient is comfortably lying on the bed. Rated pain levels are 4-6 out of 10 in severity. Moving extremities well without any difficulty. He denied any red flag symptoms, pain over the catheter site. Physical exam: Vital signs: stable Catheter site: Clean, and intact Dressing. no tenderness over the catheter area. Moving lower extremities without difficulty. Assessment: Acute postoperative pain secondary to exploratory laparotomy postop day #2 Plan: Increase epidural infusion solution of Ropivacaine 0.0625% and Dilaudid 30 g per ml at the rate of 9 mL per hour to 11 mL per hour. We will continue epidural catheter one more day. Call anesthesia as needed. Decrease his IV Dilaudid dose and increase the duration as tolerated as his epidural rate increased, and also decrease ativan dose and increase the duration.
[2021-10-01] MEDS: HEPARIN SODIUM,PORCINE/PF 5,000 UNIT/0.5 ML SYRINGE SQ SCH ×2 (09:06→21:05)
[2021-10-01] MEDS: NICOTINE 21MG/24HR PATCH TRANSDERM SCH (09:06)
[2021-10-01] MEDS: PIPERACILLIN-TAZOBACTAM 3.375 GM in SODIUM CHLORIDE 0.9% 100 ML IVPB SCH ×2 (09:06→15:17)
[2021-10-01] MEDS: PANTOPRAZOLE 40 MG/10 ML VIAL IV SCH ×2 (09:06→21:04)
[2021-10-01 09:23] LABS: Basophils # (A) 0.04 X 10*3/uL (0.00-0.10); Basophils % (A) 0.4 %; Eosinophils # (A) 0.35 X 10*3/uL (0.04-0.35); Eosinophils % (A) 3.6 %; HCT 37.5 % (39.6-50.0); HGB 12.5 g/dL (13.0-17.0); Immature Grans, Automated 0.5 %; Lymphocytes # (A) 0.82 X 10*3/uL (0.90-5.00); Lymphocytes % (A) 8.4 %; MCH 31.1 pg (27.0-32.0); MCHC 33.3 g/dL (32.0-37.0); MCV 93.3 fL (80.0-97.0); Mean Platelet Volume 9.5 fL (9.5-12.2); Monocytes # (A) 0.76 X 10*3/uL (0.20-1.00); Monocytes % (A) 7.8 %; NRBC Per 100 WBC 0 /100 WBCS (0.0-0.0); Neutrophils # (A) 7.77 X 10*3/uL (1.80-7.70); Neutrophils % (A) 79.3 %; Platelet Count 264 X 10*3/uL (140-440); RBC 4.02 X 10*6/uL (4.40-5.60); RDW 13.2 % (11.5-14.5); WBC 9.79 X 10*3/uL (4.50-10.00)
[2021-10-01] MEDS: MAGNESIUM SULFATE-D5W PMX 1 GM in DEXTROSE/WATER 1 100ML.BAG IVPB SCH ×2 (10:31→12:55)
[2021-10-01] MEDS ORDERED: POTASSIUM CHLORIDE 20 MEQ in WATER FOR INJECTION 1 100ML.BAG IVPB ONE (11:00)
--- NOTE | 2021-10-01 13:47 | P.PN ---
<Jenna Levine - Last Filed: 10/01/21 13:43> Subjective Progress Note Date: 10/01/21 CHIEF COMPLAINT: Perforated viscus HISTORY OF PRESENT ILLNESS: The patient is a 46-year-old male status post exploration for perforated duodenal ulcer with abdominal washout and omental patch, 09/28/2021. Patient has chronic pain. Patient currently has epidural in place. Patient does complain of abdominal pain. Denies any nausea or vomiting. Denies any bowel movements or flatus. He has been having some shortness of breath. He reports has increased pain with taking deep breaths. Patient has NG tube in place. ANU drain with serous output. Afebrile. Patient did have oxygen saturation that went into the 80s. He is now on room air 91%. WBC 9.79 hemoglobin 12.5 platelets 264 PHYSICAL EXAM: VITAL SIGNS: Reviewed GENERAL: Well-developed in no acute distress. HEENT: No sclera icterus. Extraocular movements grossly intact. Moist buccal mucosa. Head is atraumatic, normocephalic. Hears conversational speech. No nasal drainage. NECK: Supple without lymphadenopathy. CHEST: Non-labored respirations and equal bilateral excursions. CARDIOVASCULAR: Palpable 2+ radial pulses. ABDOMEN: Mildly distended. Abdominal binder in place. Has Prevena dressing. ANU drain in place MUSCULOSKELETAL: No clubbing or cyanosis. NEUROLOGIC: No focal or lateralizing signs. Cranial nerves II through XII grossly intact. PSYCH: Appropriate affect. Alert and oriented to person, place and time. SKIN: Well perfused. Good skin turgor. ASSESSMENT: 1. Perforated duodenal ulcer 2. Chronic pain 3. Generalized anxiety disorder 4. Tobacco abuse disorder PLAN: -Patient scheduled for EGD tomorrow, 10/02/[address] Wayne -Continue TPN but discontinue IV fluids -Check chest x-ray for shortness of breath and concerns of fluid overload -Add Levsin drops for patient's abdominal gas patient's -Continue supportive care -Keep patient nothing by mouth -Continue NG tube for decompression -Continue epidural for pain control -Continue antibiotics -Continue antiemetics -Encourage patient to use incentive spirometer -GI prophylaxis Protonix and DVT prophylaxis subcu heparin Physician Supervisor [employer] note has been reviewed by physician. Signing provider agrees with the documented findings, assessment, and plan of care. Objective - Vital Signs Vital signs: Vital Signs Temp 98.1 F 10/01/21 09:30 Pulse 85 10/01/21 09:30 Resp 18 10/01/21 09:30 BP 162/91 10/01/21 09:30 Pulse Ox 91 L 10/01/21 09:30 Intake & Output 09/30/21 10/01/21 10/01/21 18:59 06:59 18:59 Intake Total 580.35 1025 153 Output Total 1060 1640 60 Balance -479.65 -615 93 Intake: Intake, IV Titration 40.35 1025 153 Amount Parenteral Electrolytes 1025 20 ml Sodium Phosphate 15 mmol In Amino Acids 5 %/ Dextrose 20 % 1,000 ml @ 95 mls/hr IV .BY DURATION SHANNAN Rx#:[id number] Ropivacaine 250 mg 40.35 153 Hydromorphone (Pf) 7.5 mg In Sodium Chloride 0.9% 199 ml @ Per Protocol EPIDURAL .Q0M PRN Rx#: [id number] Oral 540 Output: Drainage 40 40 60 Abdomen 40 40 60 Urine 1020 1600 Uretheral (Mao) 20 Other: Voiding Method Indwelling Catheter Urinal Urinal # Voids 2 - Labs CBC & Chem 7: 10/01/21 04:24 10/01/21 04:24 Labs: Abnormal Lab Results - Last 24 Hours (Table) 10/01/21 10/01/21 Range/Units 04:24 04:24 RBC 4.02 L (4.40-5.60) X 10*6/uL Hgb 12.5 L (13.0-17.0) g/dL Hct 37.5 L (39.6-50.0) % Immature Gran # 0.05 H (0.00-0.04) X 10*3/uL Neutrophils # 7.77 H (1.80-7.70) X 10*3/uL Lymphocytes # 0.82 L (0.90-5.00) X 10*3/uL Sodium 131 L (137-145) mmol/L Glucose 130 H (74-99) mg/dL Microbiology - Last 24 Hours (Table) 09/28/21 21:20 Anaerobic Culture - Preliminary Peritoneal Fluid 09/28/21 21:20 Gram Stain - Preliminary Peritoneal Fluid Body Fluid Culture - Preliminary <Vero Wayne N - Last Filed: 10/02/21 16:13> Subjective CHIEF COMPLAINT: Perforated duodenal ulcer HISTORY OF PRESENT ILLNESS: The patient is a 46 year old male presented with perforated viscus due to perforated duodenal ulcer. Patient status post exploratory laparotomy with peritoneal lavage and omental patch. Pain improved with epidural. NG tube present. Denies bowel movements. Chronic anxiety managed with Ativan. REVIEW OF ORGAN SYSTEMS:No fevers. No chills. No acute chest pain. Has chronic pain. Has chronic anxiety. PHYSICAL EXAM: VITALS: Reviewed CONSTITUTIONAL: Well developed and in no acute distress. EYES: Conjuctivae without sclera icterus. Extraocular movements grossly intact. HEAD, EARS, NOSE, THROAT: Moist buccal mucosa. Head is atraumatic, normo cephalic. Hears conversational speech. No nasal drainage. NG tube present and bilious. RESPIRATORY: Non-labored respirations and equal bilateral excursions. No gross wheezes. CARDIOVASCULAR: Palpable 2+ radial pulses. ABDOMEN: Tender. No diffuse peritonitis. Dressing. ANU drain serosanguineous. MUSCULOSKELETAL: Nail and fingers with good capillary refill. SKIN: Warm and well perfused with good skin turgor. NEUROLOGIC: Cranial nerves II through XII grossly intact. No focal or lateralizing signs. PSYCH: Alert and oriented to person, place and time. Displays appropriate insight. CLINCAL LABS: Reviewed. WBC elevated over 10,000. Hemoglobin down 12.6, dilutional ASSESSMENT: 1. Perforated duodenal ulcer 2. Tobacco abuse disorder 3. Chronic pain syndrome PLAN: 1. Continue TPN. 2. Continue epidural for pain management 3. Upper endoscopy for assessment of duodenal ulcer 4. Will need pain management service due to uncontrolled high pain needs. Objective - Vital Signs Vital signs: Vital Signs Temp 99.4 F 10/02/21 14:00 Pulse 86 10/02/21 14:00 Resp 16 10/02/21 14:00 BP 155/89 10/02/21 14:00 Pulse Ox 95 10/02/21 14:00 Intake & Output 10/01/21 10/02/21 10/02/21 18:59 06:59 18:59 Intake Total 207.633 337.233 Output Total 140 400 Balance 67.633 -400 337.233 Weight 89.811 kg Intake: IV 100 Intake, IV Titration 207.633 237.233 Amount Ropivacaine 250 mg 207.633 237.233 Hydromorphone (Pf) 7.5 mg In Sodium Chloride 0.9% 199 ml @ Per Protocol EPIDURAL .Q0M PRN Rx#: [id number] Oral 0 Output: Gastric Drainage 50 Drainage 90 Abdomen 90 Urine 400 Other: Voiding Method Urinal Urinal # Voids 2 3 - Labs CBC & Chem 7: 10/02/21 04:50 10/02/21 04:50 Labs: Abnormal Lab Results - Last 24 Hours (Table) 10/02/21 10/02/21 Range/Units 04:50 04:50 Lymphocytes # 0.8 L (1.0-4.8) k/uL Sodium 131 L (137-145) mmol/L Chloride 97 L (98-107) mmol/L Glucose 144 H (74-99) mg/dL Phosphorus 4.9 H (2.5-4.5) mg/dL Microbiology - Last 24 Hours (Table) 09/28/21 21:20 Gram Stain - Preliminary Peritoneal Fluid Body Fluid Culture - Preliminary 10/01/21 15:57 [facility] St[facility] 09/28/21 21:20 Anaerobic Culture - Preliminary Peritoneal Fluid Assessment and Plan (1) Perforated duodenal ulcer Current Visit: Yes Status: Acute Code(s): K26.5 - CHRONIC OR UNSPECIFIED DUODENAL ULCER WITH PERFORATION SNOMED Code(s): 49128236 (2) Peritonitis (acute) generalized Current Visit: Yes Status: Acute Code(s): K65.0 - GENERALIZED (ACUTE) PERITONITIS SNOMED Code(s): 91089337 (3) Sepsis Current Visit: Yes Status: Acute Code(s): A41.9 - SEPSIS, UNSPECIFIED ORGANISM SNOMED Code(s): 34105164 (4) Dehydration Current Visit: Yes Status: Acute Code(s): E86.0 - DEHYDRATION SNOMED Code(s): 88584975 (5) Tobacco abuse disorder Current Visit: Yes Status: Acute Code(s): Z72.0 - TOBACCO USE SNOMED Code(s): 330787515 (6) Tobacco use disorder, mild, in sustained remission, abuse Current Visit: Yes Status: Acute Code(s): F17.201 - NICOTINE DEPENDENCE, UNSPECIFIED, IN REMISSION SNOMED Code(s): 844564062 (7) Pneumoperitoneum Current Visit: Yes Status: Acute Code(s): K66.8 - OTHER SPECIFIED DISORDERS OF PERITONEUM SNOMED Code(s): 25959245
--- NOTE | 2021-10-01 13:58 | XR ---
EXAMINATION TYPE: XR chest 1V portable DATE OF EXAM: 10/01/2021 COMPARISON: CT abdomen pelvis 09/28/2021 HISTORY: Shortness of breath TECHNIQUE: Single frontal view of the chest is obtained. FINDINGS: There is an NG tube coiled within the stomach. Right-sided PICC line shows the distal tip near the cavoatrial junction level. Lung volumes are low and the patient is rotated. Bilateral patchy basilar density is noted. There is no evident pneumothorax. Postop changes are noted status post lef t shoulder arthroplasty. Cardiomediastinal silhouette is within normal limits accounting for techniqu e, rotation. IMPRESSION: Basilar atelectasis versus pneumonia, there is associated possible effusion
[2021-10-01] MEDS: ROPIVACAINE 250 MG, HYDROMORPHONE (PF) 7.5 MG in SODIUM CHLORIDE 0.9% 199 ML EPIDURAL PRN (14:02)
[2021-10-01 15:50] LABS: Anabasine Urine 6.1 ng/mL (<2.0)
[2021-10-01] MEDS: HYOSCYAMINE ORAL DROPS 1.875 MG/15 ML BOTTLE PO SCH (17:01)
[2021-10-01] MEDS ORDERED: FUROSEMIDE 10 MG/ML 2 ML VIAL IV ONE (19:09)
[2021-10-01] MEDS ORDERED: FUROSEMIDE 10 MG/ML 2 ML VIAL IV SCH (21:00)
[2021-10-01] MEDS: FLUCONAZOLE IN NACL,ISO-OSM 100 MG in SALINE 1 50ML.BAG IVPB SCH (22:39)
[2021-10-02] MEDS: PIPERACILLIN-TAZOBACTAM 3.375 GM in SODIUM CHLORIDE 0.9% 100 ML IVPB SCH ×4 (00:41→23:12)
[2021-10-02] MEDS: METOCLOPRAMIDE 5 MG/ML 2 ML VIAL IVP SCH ×5 (01:23→23:12)
[2021-10-02] MEDS: ONDANSETRON 4 MG/2 ML VIAL IVP SCH ×5 (01:23→23:12)
[2021-10-02] MEDS: HYOSCYAMINE ORAL DROPS 1.875 MG/15 ML BOTTLE PO SCH ×5 (01:24→23:12)
[2021-10-02] MEDS: HYDROmorphone 0.5 MG/0.5 ML SYRINGE IVP PRN (01:25)
[2021-10-02] MEDS: 1: MVI, ADULT NO.4 WITH VIT K 10 ML, TRACE (CONC-1ML/DOSE) 1 ML, PARENTERAL ELECTROLYTES IV SCH ×20 (02:42→14:01)
[2021-10-02] MEDS: LORazepam 2 MG/ML INJ IV PRN ×5 (03:06→22:21)
[2021-10-02 05:14] LABS: Basophils % (A) 0 %; Eosinophils # (A) 0.4 k/uL (0-0.7); Eosinophils % (A) 5 %; HCT 42.2 % (39.0-53.0); Lymphocytes # (A) 0.8 k/uL (1.0-4.8); Lymphocytes % (A) 9 %; MCH 31.2 pg (25.0-35.0); MCHC 33.4 g/dL (31.0-37.0); MCV 93.5 fL (80.0-100.0); Monocytes # (A) 0.6 k/uL (0-1.0); Monocytes % (A) 7 %; Neutrophils # (A) 6.9 k/uL (1.3-7.7); Neutrophils % (A) 78 %; Platelet Count 363 k/uL (150-450); RBC 4.51 m/uL (4.30-5.90); WBC 8.8 k/uL (3.8-10.6)
[2021-10-02 05:19] LABS: HGB 14.1 gm/dL (13.0-17.5)
[2021-10-02 05:29] LABS: African American GFR (CKD) >90 (>60 ml/min/1.73 sqM); Anion Gap 7 mmol/L; Blood Urea Nitrogen 13 mg/dL (9-20); Calcium 8.8 mg/dL (8.4-10.2); Carbon Dioxide 27 mmol/L (22-30); Chloride 97 mmol/L (98-107); Glucose 144 mg/dL (74-99); Magnesium 1.9 mg/dL (1.6-2.3); Non-African American GFR(CKD) >90 (>60 ml/min/1.73 sqM); Phosphorus 4.9 mg/dL (2.5-4.5); Potassium 3.6 mmol/L (3.5-5.1); Sodium 131 mmol/L (137-145)
--- NOTE | 2021-10-02 08:14 | P.PN ---
Progress Note - Text Date: 10/02/2021 Time: 07:21 The patient is status post, exploratory laparotomy, postoperative day number 3. The patient has no complaints of nausea vomiting or headache. The patient does not complain of any lower extremity numbness or weakness. The epidural is running at 12 mL per hour. The patient seems to be comfortable at this time. VAS 2-10 The epidural will be discontinued this a.m. Pain meds will be provided to the patient by the service.
[2021-10-02] MEDS ORDERED: IV FLUID CONTINUATION 400 ML IV ONE (08:19)
[2021-10-02] MEDS ORDERED: PROPOFOL 10 MG/ML 20 ML VIAL IV ONE (08:20)
[2021-10-02] MEDS: HEPARIN SODIUM,PORCINE/PF 5,000 UNIT/0.5 ML SYRINGE SQ SCH ×2 (08:41→20:50)
--- NOTE | 2021-10-02 08:49 | P.PCN ---
Date of Procedure: 10/02/21 Description of Procedure: PREOPERATIVE DIAGNOSIS: Perforated duodenal ulcer with peritonitis Status post exploratory laparotomy POSTOPERATIVE DIAGNOSIS: Duodenal ulcer with history of perforation Gastritis Hiatal hernia OPERATION: Esophagogastroduodenoscopy with biopsies along antrum. SURGEON: Vero Wayne MD ANESTHESIA: MAC. INDICATIONS: The patient is a 46-year-old male who presents perforated duodenal ulcer status post exploratory laparotomy. Upper endoscopy was offered for biopsies of the antrum including assessment of repair. Benefits and risks of the procedure were described. Informed consent was obtained. DESCRIPTION: The patient was brought into the endoscopy suite and laid in the left lateral decubitus position. An Olympus gastroscope was passed along the posterior oropharynx down to the distal esophagus where the squamocolumnar junction was encountered at 40 cm from the incisors. The stomach was entered and no bile reflux was found. Additional findings are listed below. Biopsies with cold forceps were obtained of the antrum. The first through third portion of the du odenum was examined. Retroflexion of the scope confirmed Hill grade 2 lower esophageal valve. The squamocolumnar junction demonstrated LA grade B erosive esophagitis. The stomach was desufflated. The patient tolerated the procedure well. FINDINGS: Squamocolumnar junction 40 cm from the incisors. Diaphragmatic hiatus at 42 cm. Hiatal hernia, 2 cm Hill grade 2 lower esophageal valve. LA grade B erosive esophagitis with ulceration Acute duodenal ulcer second portion of duodenum with mild stenosis due to edema Chronic gastritis with biopsies obtained Nasogastric tube discontinued and the procedure RECOMMENDATIONS: 1. Continue Carafate 1 g 3 times daily for 4 weeks 2. Continue omeprazole 40 mg daily 3. Nothing by mouth status with ice ships today 4. Upper GI with small bowel follow-through in 24 hours prior to start of diet
[2021-10-02] MEDS ORDERED: FUROSEMIDE 10 MG/ML 2 ML VIAL IV SCH (09:00)
[2021-10-02] MEDS: HYDROmorphone 1 MG/ML 1 ML SYRINGE IVP PRN ×4 (09:22→22:22)
[2021-10-02] MEDS: PANTOPRAZOLE 40 MG/10 ML VIAL IV SCH ×2 (09:24→20:50)
[2021-10-02] MEDS: NICOTINE 21MG/24HR PATCH TRANSDERM SCH (09:27)
[2021-10-02] MEDS: ROPIVACAINE 250 MG, HYDROMORPHONE (PF) 7.5 MG in SODIUM CHLORIDE 0.9% 199 ML EPIDURAL PRN (11:36)
[2021-10-02] MEDS ORDERED: HYDROmorphone 1 MG/ML 1 ML SYRINGE IVP PRN (12:58)
--- NOTE | 2021-10-02 15:58 | P.PN ---
Progress Note - Text Progress Note Date: 10/02/21 Per request of patient, patient's spouse updated regarding care. Findings of pain addiction reviewed as spouse reports a long-standing history of uncontrolled pain due to 3 left shoulder revisions. Patient was pending pain referral for over 3 months. Patient has overlying severe anxiety. Otherwise, patient slated to undergo upper GI tomorrow with start of oral diet. Patient hospitalization to continue due to uncontrolled pre-existing chronic pain with acute pain. Pain consultation obtained. Disposition reviewed in 3 to 5 days.
[2021-10-02] MEDS: FLUCONAZOLE IN NACL,ISO-OSM 100 MG in SALINE 1 50ML.BAG IVPB SCH (20:50)
[2021-10-03] MEDS: 1: MVI, ADULT NO.4 WITH VIT K 10 ML, TRACE (CONC-1ML/DOSE) 1 ML, PARENTERAL ELECTROLYTES IV SCH ×12 (00:15→10:18)
[2021-10-03] MEDS: HYDROmorphone 1 MG/ML 1 ML SYRINGE IVP PRN ×4 (03:20→19:23)
[2021-10-03] MEDS: METOCLOPRAMIDE 5 MG/ML 2 ML VIAL IVP SCH ×4 (05:19→23:32)
[2021-10-03] MEDS: ONDANSETRON 4 MG/2 ML VIAL IVP SCH ×4 (05:19→23:32)
[2021-10-03] MEDS: HYOSCYAMINE ORAL DROPS 1.875 MG/15 ML BOTTLE PO SCH ×4 (05:19→23:33)
[2021-10-03] MEDS: LORazepam 2 MG/ML INJ IV PRN ×3 (05:21→21:39)
[2021-10-03 05:46] LABS: African American GFR (CKD) >90 (>60 ml/min/1.73 sqM); Anion Gap 7 mmol/L; Blood Urea Nitrogen 17 mg/dL (9-20); Calcium 8.8 mg/dL (8.4-10.2); Carbon Dioxide 27 mmol/L (22-30); Chloride 100 mmol/L (98-107); Glucose 113 mg/dL (74-99); Magnesium 1.9 mg/dL (1.6-2.3); Non-African American GFR(CKD) >90 (>60 ml/min/1.73 sqM); Phosphorus 4.6 mg/dL (2.5-4.5); Sodium 134 mmol/L (137-145)
[2021-10-03] MEDS: HEPARIN SODIUM,PORCINE/PF 5,000 UNIT/0.5 ML SYRINGE SQ SCH ×2 (07:53→20:34)
[2021-10-03] MEDS: PIPERACILLIN-TAZOBACTAM 3.375 GM in SODIUM CHLORIDE 0.9% 100 ML IVPB SCH (07:57)
[2021-10-03] MEDS: PANTOPRAZOLE 40 MG/10 ML VIAL IV SCH ×2 (07:59→20:34)
[2021-10-03] MEDS: NICOTINE 21MG/24HR PATCH TRANSDERM SCH (08:00)
[2021-10-03] MEDS: ROPIVACAINE 250 MG, HYDROMORPHONE (PF) 7.5 MG in SODIUM CHLORIDE 0.9% 199 ML EPIDURAL PRN (08:19)
[2021-10-03 09:23] LABS: Basophils # (A) 0.05 X 10*3/uL (0.00-0.10); Basophils % (A) 0.7 %; Eosinophils # (A) 0.54 X 10*3/uL (0.04-0.35); Eosinophils % (A) 7.1 %; HGB 13.7 g/dL (13.0-17.0); Immature Grans, Automated 0.8 %; Lymphocytes # (A) 1.04 X 10*3/uL (0.90-5.00); Lymphocytes % (A) 13.7 %; MCH 30.3 pg (27.0-32.0); MCHC 32.6 g/dL (32.0-37.0); MCV 92.9 fL (80.0-97.0); Mean Platelet Volume 9.4 fL (9.5-12.2); Monocytes # (A) 0.99 X 10*3/uL (0.20-1.00); NRBC Per 100 WBC 0 /100 WBCS (0.0-0.0); Neutrophils # (A) 4.91 X 10*3/uL (1.80-7.70); Neutrophils % (A) 64.7 %; Platelet Count 388 X 10*3/uL (140-440); RBC 4.52 X 10*6/uL (4.40-5.60); RDW 12.7 % (11.5-14.5); WBC 7.59 X 10*3/uL (4.50-10.00)
--- NOTE | 2021-10-03 11:24 | FL ---
EXAMINATION TYPE: FL UGI DATE OF EXAM: 10/03/2021 LIMITED UGI-ESOPHAGRAM: CLINICAL HISTORY: Repair duodenal ulcer TECHNIQUE: Limited esophagram is performed utilizing 20 oz of Omnipaque 350. FINDINGS: The patient swallowed contrast without difficulty or delay. Esophageal peristalsis and mo tility are within normal limits. There is good flow of contrast into the stomach, duodenal bulb in th e entire duodenum and with contrast noted into the proximal jejunum. There is no evidence for leak. S urgical drain is in place. Overlying skin meghan noted. IMPRESSION: No evidence of leak of duodenal ulcer repair.
--- NOTE | 2021-10-03 12:27 | P.PN ---
Subjective Progress Note Date: 10/03/21 CHIEF COMPLAINT: Perforated viscus HISTORY OF PRESENT ILLNESS: The patient is a 46-year-old male status post exploration for perforated duodenal ulcer with abdominal washout and omental patch, 09/28/2021. Patient has chronic pain. patient had EGD completed yesterday which demonstrated Duodenal ulcer with history of perforation, Gastritis, Hiatal hernia. Patient had upper GI completed today that showed no evidence of leak of the duodenal ulcer repair. Patient will be started on regular diet. He does report abdominal pain. But he feels better than yesterday. He is having flatus. Denies any nausea or vomiting. NG tube currently out. ANU drain with serosanguineous output. Chest x-ray basilar atelectasis versus pneumonia, there is associated possible effusion. PHYSICAL EXAM: VITAL SIGNS: Reviewed GENERAL: Well-developed in no acute distress. HEENT: No sclera icterus. Extraocular movements grossly intact. Moist buccal mucosa. Head is atraumatic, normocephalic. Hears conversational speech. No nasal drainage. NECK: Supple without lymphadenopathy. CHEST: Non-labored respirations and equal bilateral excursions. CARDIOVASCULAR: Palpable 2+ radial pulses. ABDOMEN: Mildly distended. Abdominal binder in place. Has Prevena dressing. ANU drain in place MUSCULOSKELETAL: No clubbing or cyanosis. NEUROLOGIC: No focal or lateralizing signs. Cranial nerves II through XII grossly intact. PSYCH: Appropriate affect. Alert and oriented to person, place and time. SKIN: Well perfused. Good skin turgor. ASSESSMENT: 1. Perforated duodenal ulcer 2. Chronic pain 3. Generalized anxiety disorder 4. Tobacco abuse disorder PLAN: -Resume patient's home pain medication -Consult pain service for pain management due to patient's chronic pain and emergency surgery -Wean patient off of TPN -NG tube discontinued -continue Levsin drops for patient's abdominal gas patient's -Continue supportive care -Continue antibiotics -Continue antiemetics -Encourage patient to use incentive spirometer -Encourage patient to ambulate -GI prophylaxis Protonix and DVT prophylaxis subcu heparin Physician Maternity Nurse note has been reviewed by physician. Signing provider agrees with the documented findings, assessment, and plan of care. Objective - Vital Signs Vital signs: Vital Signs Temp 98.0 F 10/03/21 07:18 Pulse 79 10/03/21 07:18 Resp 18 10/03/21 07:18 BP 128/85 10/03/21 07:18 Pulse Ox 95 10/03/21 07:18 Intake & Output 10/02/21 10/03/21 10/03/21 18:59 06:59 18:59 Intake Total 337.233 975.333 227.883 Output Total 60 365 Balance 277.233 610.333 227.883 Weight 89.811 kg Intake: IV 100 Intake, IV Titration 237.233 975.333 227.883 Amount Parenteral Electrolytes 975.333 20 ml Sodium Chloride 4Meq/ml Vial 40 meq Potassium Chloride 14 meq In Amino Acids 5 %/ Dextrose 20 % 1,000 ml @ 95 mls/hr IV .BY DURATION [facility] Rx#:[id number] Ropivacaine 250 mg 237.233 227.883 Hydromorphone (Pf) 7.5 mg In Sodium Chloride 0.9% 199 ml @ Per Protocol EPIDURAL .Q0M PRN Rx#: [id number] Output: Drainage 60 40 Abdomen 60 40 Urine 325 Other: # Voids 2 - Labs CBC & Chem 7: 10/03/21 05:05 10/03/21 05:05 Labs: Abnormal Lab Results - Last 24 Hours (Table) 10/03/21 10/03/21 Range/Units 05:05 05:05 MPV 9.4 L (9.5-12.2) fL Immature Gran # 0.06 H (0.00-0.04) X 10*3/uL Eosinophils # 0.54 H (0.04-0.35) X 10*3/uL Sodium 134 L (137-145) mmol/L Glucose 113 H (74-99) mg/dL Phosphorus 4.6 H (2.5-4.5) mg/dL Microbiology - Last 24 Hours (Table) 09/28/21 21:20 Gram Stain - Final Peritoneal Fluid Body Fluid Culture - Final 10/01/21 15:57 Gram Stain - Preliminary [facility] Body Fluid Culture - Preliminary
[2021-10-03] MEDS: GABAPENTIN 300 MG CAP PO SCH ×2 (13:15→20:34)
--- NOTE | 2021-10-03 15:03 | P.PAINCN ---
History of Present Illness - Reason for Consult Consult date: 10/03/21 - History of Present Illness This is 46 years old male with a history of chronic pain syndrome, secondary to traumatic injury to his left shoulder, and patient being on chronic. opioid use, she was on Percocet 10/325 every 4 hours and Neurontin 300 mg twice a day, he was getting prescription from his orthopedic surgeon, last week patient was admitted to [facility] and patient had expiratory laparotomy se condary to perforated duodenal ulcer, patient continued to have severe abdominal pain and severe left shoulder pain, patient currently on epidural infusion of Dilaudid and ropivacaine epidurally, and pain management consultation was requested in preparation for discharge planning. Past Medical History Past Medical History: Chest Pain / Angina, Hypertension, Myocardial Infarction ([place]), Supraventricular Tachycardia (SVT) Additional Past Medical History / Comment(s): pancreatitis Last Myocardial Infarction Date:: Pt states 10 years ago. History of Any Multi-Drug Resistant Organisms: None Reported Past Surgical History: Orthopedic Surgery Additional Past Surgical History / Comment(s): left shoulder Past Anesthesia/Blood Transfusion Reactions: No Reported Reaction Past Psychological History: No Psychological Hx Reported Smoking Status: Current every day smoker Past Alcohol Use History: Daily Additional Past Alcohol Use History / Comment(s): Pt states he drank 6-10 beers/day prior to his surgery on March 18. Past Drug Use History: None Reported Medications and Allergies Home Medications Medication Instructions Recorded Confirmed Type Sucralfate [Carafate] 1 gm PO AC-TID #90 tab 04/09/21 09/28/21 Rx Diclofenac Sodium [Voltaren] 75 mg PO BID 09/28/21 09/28/21 History Gabapentin [Neurontin] 300 mg PO BID 09/28/21 09/28/21 History Omeprazole 40 mg PO DAILY 09/28/21 09/28/21 History diazePAM [Valium] 5 mg PO QID PRN 09/28/21 09/28/21 History oxyCODONE-APAP 10-325MG [Percocet 2 tab PO Q6H PRN 09/28/21 09/28/21 History 10-325 mg] Allergies Allergy/AdvReac Type Severity Reaction Status Date / Time cortisone Allergy Unknown Verified 09/28/21 17:08 prednisone Allergy Unknown Verified 09/28/21 17:08 Physical Exam Vitals: Vital Signs Temp Pulse Resp BP Pulse Ox 10/03/21 07:18 98.0 F 79 18 128/85 95 10/03/21 01:42 98.1 F 70 15 135/85 94 L 10/02/21 19:46 98.5 F 75 17 142/90 93 L Intake and Output 10/02/21 10/03/21 10/03/21 22:59 06:59 14:59 Intake Total 975.333 227.883 Output Total 60 365 350 Balance -60 610.333 -122.117 Intake: Intake, IV Titration 975.333 227.883 Amount Parenteral Electrolytes 975.333 20 ml Sodium Chloride 4Meq/ml Vial 40 meq Potassium Chloride 14 meq In Amino Acids 5 %/ Dextrose 20 % 1,000 ml @ 95 mls/hr IV .BY DURATION [facility] Rx#:[id number] Ropivacaine 250 mg 227.883 Hydromorphone (Pf) 7.5 mg In Sodium Chloride 0.9% 199 ml @ Per Protocol EPIDURAL .Q0M PRN Rx#: [id number] Output: Drainage 60 40 Abdomen 60 40 Urine 325 350 Other: # Voids 2 Weight 89.811 kg PHYSICAL EXAM: VITAL SIGNS: Reviewed GENERAL: Well-developed in no acute distress. HEENT: No sclera icterus. Extraocular movements grossly intact. Moist buccal mucosa. Head is atraumatic, normocephalic. Hears conversational speech. No nasal drainage. NECK: Supple without lymphadenopathy. CHEST: Non-labored respirations and equal bilateral excursions. CARDIOVASCULAR: Palpable 2+ radial pulses. ABDOMEN: Mildly distended. Abdominal binder in place. Has Prevena dressing. ANU drain in place MUSCULOSKELETAL: No clubbing or cyanosis. NEUROLOGIC: No focal or lateralizing signs. Cranial nerves II through XII grossly intact. PSYCH: Appropriate affect. Alert and oriented to person, place and time. SKIN: Well perfused. Good skin turgor. Results CBC & Chem 7: 10/03/21 05:05 10/03/21 05:05 Labs: Abnormal Lab Results - Last 24 Hours (Table) 10/03/21 10/03/21 Range/Units 05:05 05:05 MPV 9.4 L (9.5-12.2) fL Immature Gran # 0.06 H (0.00-0.04) X 10*3/uL Eosinophils # 0.54 H (0.04-0.35) X 10*3/uL Sodium 134 L (137-145) mmol/L Glucose 113 H (74-99) mg/dL Phosphorus 4.6 H (2.5-4.5) mg/dL Microbiology - Last 24 Hours (Table) 09/28/21 21:20 Gram Stain - Final Peritoneal Fluid Body Fluid Culture - Final 10/01/21 15:57 Gram Stain - Preliminary [facility] Body Fluid Culture - Preliminary Assessment and Plan Plan: Assessment and plan=1-acute on chronic pain. 2-status post exploratory laparotomy and repair of perforated duodenal ulcer. 3- Chronic pain syndrome secondary to left shoulder surgery/torn rotator cuff. Commend resume Percocet 10/325 every 4 hours and neurontine 300 mg BID, prescription for Percocet 10/325 every 4 hours dispense 120 with no refills was given and Neurontin 300 mg twice a day dispense 60 with no refills. Patient will follow up with his orthopedic surgeon/pain management service after discharge, she already had an appointment with pain management on October 22 2021 MAPS Reviewed and it was appropriate, risks and benefits and alternative of opioid discussed with the patient and patient und erstands. Time with Patient: Less than 30 PQRS Measure Charge Sheet - Pain Location Abdomen Non-Pharmacological Interventions: Darkened Room, Distraction Pharmacological Interventions: Discuss Pain Med Options Pain Comment: see pain rx charting PQRS Narrative: Do You Want the Pneumonia Vaccine Up to Date Vaccine AT THIS TIME? Blood Pressure [Left Arm] 128/85 Blood Pressure 127/91 Pain Intensity [Abdomen] 9 Pain Intensity 10 Pain Scale Used [Abdomen] Numeric (1 - 10) Pain Scale Used Numeric (1 - 10) Scale Used Numeric (1 - 10) Home Medications: Ambulatory Orders Sucralfate [Carafate] 1 gm PO AC-TID #90 tab 04/09/21 Diclofenac Sodium [Voltaren] 75 mg PO BID 09/28/21 Gabapentin [Neurontin] 300 mg PO BID 09/28/21 Omeprazole 40 mg PO DAILY 09/28/21 diazePAM [Valium] 5 mg PO QID PRN 09/28/21 oxyCODONE-APAP 10-325MG [Percocet 10-325 mg] 2 tab PO Q6H PRN 09/28/21
[2021-10-03] MEDS: oxyCODONE-APAP 10-325MG 1 EACH TAB PO PRN (18:10)
[2021-10-03] MEDS: FLUCONAZOLE IN NACL,ISO-OSM 100 MG in SALINE 1 50ML.BAG IVPB SCH (20:34)
[2021-10-04] MEDS: oxyCODONE-APAP 10-325MG 1 EACH TAB PO PRN ×3 (01:47→17:53)
[2021-10-04] MEDS: HYDROmorphone 1 MG/ML 1 ML SYRINGE IVP PRN ×3 (03:25→23:01)
[2021-10-04] MEDS: ONDANSETRON 4 MG/2 ML VIAL IVP SCH ×4 (05:00→23:00)
[2021-10-04] MEDS: HYOSCYAMINE ORAL DROPS 1.875 MG/15 ML BOTTLE PO SCH ×4 (05:00→23:01)
[2021-10-04] MEDS: LORazepam 2 MG/ML INJ IV PRN ×3 (05:00→20:35)
[2021-10-04] MEDS: METOCLOPRAMIDE 5 MG/ML 2 ML VIAL IVP SCH ×4 (05:00→23:00)
[2021-10-04 05:39] LABS: African American GFR (CKD) >90 (>60 ml/min/1.73 sqM); Anion Gap 7 mmol/L; Blood Urea Nitrogen 15 mg/dL (9-20); Calcium 8.9 mg/dL (8.4-10.2); Carbon Dioxide 22 mmol/L (22-30); Chloride 103 mmol/L (98-107); Glucose 100 mg/dL (74-99); Non-African American GFR(CKD) >90 (>60 ml/min/1.73 sqM); Potassium 4.3 mmol/L (3.5-5.1); Sodium 132 mmol/L (137-145)
[2021-10-04] MEDS: PANTOPRAZOLE 40 MG/10 ML VIAL IV SCH ×2 (08:29→20:36)
[2021-10-04] MEDS: HEPARIN SODIUM,PORCINE/PF 5,000 UNIT/0.5 ML SYRINGE SQ SCH ×2 (08:30→20:35)
[2021-10-04] MEDS: NICOTINE 21MG/24HR PATCH TRANSDERM SCH (08:30)
[2021-10-04] MEDS: GABAPENTIN 300 MG CAP PO SCH ×2 (08:30→20:36)
[2021-10-04] MEDS: FUROSEMIDE 10 MG/ML 2 ML VIAL IV SCH (08:30)
[2021-10-04 09:16] LABS: Basophils # (A) 0.07 X 10*3/uL (0.00-0.10); Basophils % (A) 0.6 %; Eosinophils # (A) 0.68 X 10*3/uL (0.04-0.35); Eosinophils % (A) 5.9 %; HCT 39.4 % (39.6-50.0); HGB 13.3 g/dL (13.0-17.0); Immature Grans, Automated 1.1 %; Lymphocytes # (A) 1.43 X 10*3/uL (0.90-5.00); Lymphocytes % (A) 12.3 %; MCH 30.9 pg (27.0-32.0); MCHC 33.8 g/dL (32.0-37.0); MCV 91.6 fL (80.0-97.0); Mean Platelet Volume 9.5 fL (9.5-12.2); Monocytes # (A) 1.18 X 10*3/uL (0.20-1.00); Monocytes % (A) 10.2 %; NRBC Per 100 WBC 0 /100 WBCS (0.0-0.0); Neutrophils # (A) 8.12 X 10*3/uL (1.80-7.70); Neutrophils % (A) 69.9 %; Platelet Count 384 X 10*3/uL (140-440); RDW 12.7 % (11.5-14.5); WBC 11.61 X 10*3/uL (4.50-10.00)
--- NOTE | 2021-10-04 11:21 | P.PN ---
Subjective Progress Note Date: 10/04/21 Principal diagnosis: Perforated ulcer Patient says he is feeling better. Says he feels 100% better than he did 2 days ago. Tolerating diet. He is passing flatus without bowel movement. Patient is very anxious to go home today. He is afebrile. Objective - Vital Signs Vital signs: Vital Signs Temp 98.4 F 10/04/21 07:48 Pulse 77 10/04/21 07:48 Resp 16 10/04/21 07:48 BP 144/92 10/04/21 07:48 Pulse Ox 95 10/04/21 07:48 Intake & Output 10/03/21 10/04/21 10/04/21 18:59 06:59 18:59 Intake Total 227.883 Output Total 375 Balance -147.117 Weight 89.811 kg Intake: Intake, IV Titration 227.883 Amount Ropivacaine 250 mg 227.883 Hydromorphone (Pf) 7.5 mg In Sodium Chloride 0.9% 199 ml @ Per Protocol EPIDURAL .Q0M PRN Rx#: [id number] Output: Drainage 25 Abdomen 25 Urine 350 Other: # Voids 3 - Exam Abdomen: Soft, nondistended, mild tenderness, dressing clean and dry - Labs CBC & Chem 7: 10/04/21 04:39 10/04/21 04:39 Labs: Abnormal Lab Results - Last 24 Hours (Table) 10/04/21 10/04/21 Range/Units 04:39 04:39 WBC 11.61 H (4.50-10.00) X 10*3/uL RBC 4.30 L (4.40-5.60) X 10*6/uL Hct 39.4 L (39.6-50.0) % Immature Gran # 0.13 H (0.00-0.04) X 10*3/uL Neutrophils # 8.12 H (1.80-7.70) X 10*3/uL Monocytes # 1.18 H (0.20-1.00) X 10*3/uL Eosinophils # 0.68 H (0.04-0.35) X 10*3/uL Sodium 132 L (137-145) mmol/L Glucose 100 H (74-99) mg/dL Microbiology - Last 24 Hours (Table) 10/01/21 15:57 Gram Stain - Preliminary [facility] Body Fluid Culture - Preliminary 09/28/21 21:20 Anaerobic Culture - Final Peritoneal Fluid 09/28/21 21:20 Gram Stain - Final Peritoneal Fluid Body Fluid Culture - Final Assessment and Plan (1) Duodenal ulcer Narrative/Plan: Patient seems to be improving. Pain control is less of an issue at this time. Patient is anxious to go home. His white blood cell count did increase slightly. We'll discuss possible discharge with Dr. Cadena. Current Visit: Yes Status: Acute Code(s): K26.9 - DUODENAL ULCER, UNSP ACUTE OR CHRONIC, W/O HEMOR OR PERF SNOMED Code(s): 62550375
[2021-10-04] MEDS: HYDROmorphone 2 MG TAB PO PRN (12:05)
[2021-10-04] MEDS: PIPERACILLIN-TAZOBACTAM 3.375 GM in SODIUM CHLORIDE 0.9% 100 ML IVPB SCH ×2 (15:03→23:00)
[2021-10-04] MEDS: FLUCONAZOLE IN NACL,ISO-OSM 100 MG in SALINE 1 50ML.BAG IVPB SCH (20:36)
[2021-10-05] MEDS: oxyCODONE-APAP 10-325MG 1 EACH TAB PO PRN ×3 (01:02→16:08)
[2021-10-05] MEDS: HYDROmorphone 1 MG/ML 1 ML SYRINGE IVP PRN (04:18)
[2021-10-05] MEDS: ONDANSETRON 4 MG/2 ML VIAL IVP SCH ×4 (04:19→23:51)
[2021-10-05] MEDS: METOCLOPRAMIDE 5 MG/ML 2 ML VIAL IVP SCH ×4 (04:19→23:51)
[2021-10-05 05:55] LABS: African American GFR (CKD) >90 (>60 ml/min/1.73 sqM); Anion Gap 8 mmol/L; Blood Urea Nitrogen 14 mg/dL (9-20); Calcium 8.9 mg/dL (8.4-10.2); Carbon Dioxide 22 mmol/L (22-30); Chloride 102 mmol/L (98-107); Glucose 87 mg/dL (74-99); Non-African American GFR(CKD) >90 (>60 ml/min/1.73 sqM); Potassium 4.3 mmol/L (3.5-5.1); Sodium 132 mmol/L (137-145)
[2021-10-05] MEDS: HYOSCYAMINE ORAL DROPS 1.875 MG/15 ML BOTTLE PO SCH ×4 (06:14→23:51)
[2021-10-05] MEDS: LORazepam 2 MG/ML INJ IV PRN ×3 (06:17→21:33)
[2021-10-05] MEDS: NICOTINE 21MG/24HR PATCH TRANSDERM SCH (08:51)
[2021-10-05] MEDS: PIPERACILLIN-TAZOBACTAM 3.375 GM in SODIUM CHLORIDE 0.9% 100 ML IVPB SCH ×3 (08:51→23:52)
[2021-10-05] MEDS: PANTOPRAZOLE 40 MG/10 ML VIAL IV SCH ×2 (08:52→21:32)
[2021-10-05] MEDS: FUROSEMIDE 10 MG/ML 2 ML VIAL IV SCH (08:52)
[2021-10-05] MEDS: HEPARIN SODIUM,PORCINE/PF 5,000 UNIT/0.5 ML SYRINGE SQ SCH ×2 (08:52→21:33)
[2021-10-05] MEDS: GABAPENTIN 300 MG CAP PO SCH ×2 (08:52→21:32)
[2021-10-05] MEDS: HYDROmorphone 2 MG TAB PO PRN ×4 (08:56→23:06)
[2021-10-05 09:08] LABS: HCT 40.4 % (39.6-50.0); HGB 13.3 g/dL (13.0-17.0); MCH 30.6 pg (27.0-32.0); MCHC 32.9 g/dL (32.0-37.0); MCV 93.1 fL (80.0-97.0); Mean Platelet Volume 9.6 fL (9.5-12.2); NRBC Per 100 WBC 0 /100 WBCS (0.0-0.0); Platelet Count 385 X 10*3/uL (140-440); RBC 4.34 X 10*6/uL (4.40-5.60); RDW 12.6 % (11.5-14.5); WBC 10.18 X 10*3/uL (4.50-10.00)
[2021-10-05 09:37] LABS: Basophils # (A) 0.11 X 10*3/uL (0.00-0.10); Basophils % (A) 1.1 %; Eosinophils # (A) 0.62 X 10*3/uL (0.04-0.35); Eosinophils % (A) 6.1 %; Immature Grans, Automated 2.1 %; Lymphocytes # (A) 2.34 X 10*3/uL (0.90-5.00); Monocytes # (A) 1.12 X 10*3/uL (0.20-1.00); Neutrophils # (A) 5.78 X 10*3/uL (1.80-7.70); Neutrophils % (A) 56.7 %; RBC Morphology NORMAL
--- NOTE | 2021-10-05 12:49 | P.PN ---
Subjective Progress Note Date: 10/05/21 Principal diagnosis: Perforated ulcer Patient still complaining of pain. Despite that patient wants to go home. White blood cell count improved today at 10.1. He is afebrile. He is passing flatus. No bowel movement. Denies bloating. Objective - Vital Signs Vital signs: Vital Signs Temp 98.0 F 10/05/21 08:00 Pulse 70 10/05/21 08:00 Resp 16 10/05/21 08:00 BP 152/85 10/05/21 08:00 Pulse Ox 97 10/05/21 08:00 Intake & Output 10/04/21 10/05/21 10/05/21 18:59 06:59 18:59 Intake Total 580 Output Total 20 Balance 580 -20 Intake: Intake, IV Titration 100 Amount Piperacillin-Tazobactam 3 100 .375 gm In Sodium Chloride 0.9% 100 ml @ 25 mls/hr IVPB Q8HR [facility] Rx# :[id number] Oral 480 Output: Drainage 20 Abdomen 20 Other: Voiding Method Toilet Urinal # Voids 3 - Exam Abdomen: Soft, minimal distention, mild diffuse tenderness, ANU serous, dressing intact - Labs CBC & Chem 7: 10/05/21 04:10 10/05/21 04:10 Labs: Abnormal Lab Results - Last 24 Hours (Table) 10/05/21 10/05/21 Range/Units 04:10 04:10 WBC 10.18 H (4.50-10.00) X 10*3/uL RBC 4.34 L (4.40-5.60) X 10*6/uL Immature Gran # 0.21 H (0.00-0.04) X 10*3/uL Monocytes # 1.12 H (0.20-1.00) X 10*3/uL Eosinophils # 0.62 H (0.04-0.35) X 10*3/uL Basophils # 0.11 H (0.00-0.10) X 10*3/uL Sodium 132 L (137-145) mmol/L Microbiology - Last 24 Hours (Table) 10/01/21 15:57 Gram Stain - Preliminary [facility] Body Fluid Culture - Preliminary Assessment and Plan (1) Duodenal ulcer Narrative/Plan: Patient still having pain. No bowel activity other than flatus. White blood cell count has improved. Continue diet. Continue antiacid therapy. Possible discharge tomorrow after seen by Dr. Cadena. Current Visit: Yes Status: Acute Code(s): K26.9 - DUODENAL ULCER, UNSP ACUTE OR CHRONIC, W/O HEMOR OR PERF SNOMED Code(s): 27420371
[2021-10-05] MEDS: FLUCONAZOLE IN NACL,ISO-OSM 100 MG in SALINE 1 50ML.BAG IVPB SCH (23:08)
[2021-10-06] MEDS: oxyCODONE-APAP 10-325MG 1 EACH TAB PO PRN ×3 (03:24→13:30)
[2021-10-06] MEDS: HYOSCYAMINE ORAL DROPS 1.875 MG/15 ML BOTTLE PO SCH ×2 (05:15→11:00)
[2021-10-06] MEDS: METOCLOPRAMIDE 5 MG/ML 2 ML VIAL IVP SCH ×2 (05:16→11:01)
[2021-10-06] MEDS: ONDANSETRON 4 MG/2 ML VIAL IVP SCH ×2 (05:16→11:01)
[2021-10-06] MEDS: LORazepam 2 MG/ML INJ IV PRN (05:17)
[2021-10-06 06:09] LABS: ALT 36 U/L (4-49); AST 26 U/L (17-59); African American GFR (CKD) >90 (>60 ml/min/1.73 sqM); Albumin 3.3 g/dL (3.5-5.0); Albumin/Globulin Ratio 1.2; Alkaline Phosphatase 116 U/L (38-126); Anion Gap 8 mmol/L; Blood Urea Nitrogen 15 mg/dL (9-20); Carbon Dioxide 23 mmol/L (22-30); Chloride 102 mmol/L (98-107); Globulin 2.8 g/dL; Glucose 93 mg/dL (74-99); Non-African American GFR(CKD) >90 (>60 ml/min/1.73 sqM); Potassium 4.5 mmol/L (3.5-5.1); Sodium 133 mmol/L (137-145); Total Bilirubin 0.6 mg/dL (0.2-1.3); Total Protein 6.1 g/dL (6.3-8.2)
[2021-10-06] MEDS: PANTOPRAZOLE 40 MG/10 ML VIAL IV SCH (08:16)
[2021-10-06] MEDS: HEPARIN SODIUM,PORCINE/PF 5,000 UNIT/0.5 ML SYRINGE SQ SCH (08:17)
[2021-10-06] MEDS: GABAPENTIN 300 MG CAP PO SCH (08:17)
[2021-10-06] MEDS: FUROSEMIDE 10 MG/ML 2 ML VIAL IV SCH (08:17)
[2021-10-06] MEDS: NICOTINE 21MG/24HR PATCH TRANSDERM SCH (08:17)
[2021-10-06] MEDS: PIPERACILLIN-TAZOBACTAM 3.375 GM in SODIUM CHLORIDE 0.9% 100 ML IVPB SCH (08:18)
[2021-10-06] MEDS: diazePAM 5 MG TAB PO PRN ×2 (08:39→13:30)
[2021-10-06 12:14] LABS: Basophils % (A) 0.9 %; Eosinophils # (A) 0.51 X 10*3/uL (0.04-0.35); Eosinophils % (A) 4.6 %; HCT 41.1 % (39.6-50.0); HGB 13.6 g/dL (13.0-17.0); Immature Grans, Automated 1.9 %; Lymphocytes # (A) 2.29 X 10*3/uL (0.90-5.00); Lymphocytes % (A) 20.4 %; MCH 30.8 pg (27.0-32.0); MCHC 33.1 g/dL (32.0-37.0); MCV 93.2 fL (80.0-97.0); Mean Platelet Volume 9.8 fL (9.5-12.2); Monocytes # (A) 1.15 X 10*3/uL (0.20-1.00); Monocytes % (A) 10.3 %; NRBC Per 100 WBC 0 /100 WBCS (0.0-0.0); Neutrophils # (A) 6.94 X 10*3/uL (1.80-7.70); Neutrophils % (A) 61.9 %; Platelet Count 452 X 10*3/uL (140-440); RBC 4.41 X 10*6/uL (4.40-5.60); RDW 12.7 % (11.5-14.5)
--- NOTE | 2021-10-06 14:20 | P.DS ---
Providers Date of admission: 09/28/21 18:59 Expected date of discharge: 10/06/21 Attending physician: Vero Wayne Consults: 09/28/21 18:57 Consult Physician Routine Consulting Provider: [facility] Consult Reason/Comments: Anesthesia Care Do you want consulting provider notified?: Yes 09/29/21 07:32 Consult to Anesthesia Stat Consulting Provider: [facility] Consult Reason/Comments: Epidural, chronic pain, emergency surgery Primary care physician: Stated None Hospital Course: Discharge diagnosis 1. Perforated duodenal ulcer 2. Chronic pain 3. Generalized anxiety disorder 4. Tobacco abuse disorder 5. Leukocytosis Hospital course The patient is a 46 year old male with past history of bleeding duodenal ulcer diagnosed March 2021, 6 months ago. Patient was placed on a Carafate and Protonix regimen. Patient continued to smoke. He reports taking Diclofenac nonsteroidal anti-inflammatory for over 1 month. Family is at bedside. He was feeling moderate epigastric abdominal pain Manjeet, 2 days ago. This morning, patient woke up with severe 10 out of 10 pain. Reports poor oral intake for the last 2 days. Patient unable to lay down. CT of the abdomen and pelvis demonstrates free air. Patient is status post exploration for perforated duodenal ulcer with abdominal washout and omental patch, 09/28/2021. Patient tolerated surgery well. His pain is controlled. He did report pain on the right side of the abdomen today which possibly he could E contributed to his ANU drain. This was removed. Patient was able to tolerate lunch. He is tolerating diet. He is having bowel movements. He has been up and ambulating. He is afebrile. He is stable for discharge. Dr. Wayne did speak with via phone in the patient room. She has been updated and all questions answered. Patient is stable for discharge. Physician Documentation Engineer note has been reviewed by physician. Signing provider agrees with the documented findings, assessment, and plan of care. Patient Condition at Discharge: Stable Plan - Discharge Summary New Discharge Prescriptions: New Amoxic-Pot Clav 875-125Mg [Augmentin 875-125] 1 tab PO BID 1 Days #20 tab Hyoscyamine Elixir [Levsin 0.125MG/ML Drops] 0.125 mg PO BID #10 ml Sucralfate [Carafate] 1 gm PO BID #30 tablet Simethicone [Gas-X] 125 mg PO AC-TID PRN #30 capsule PRN Reason: Pain Omeprazole [PriLOSEC] 40 mg PO BID #60 cap Nicotine 21Mg/24Hr Patch [Habitrol] 1 each TRANSDERM DAILY #15 patch Continue diazePAM [Valium] 5 mg PO QID PRN PRN Reason: Anxiety Sucralfate [Carafate] 1 gm PO AC-TID #90 tab oxyCODONE-APAP 10-325MG [Percocet 10-325 mg] 2 tab PO Q6H PRN PRN Reason: Pain Gabapentin [Neurontin] 300 mg PO BID Discontinued Omeprazole 40 mg PO DAILY Diclofenac Sodium [Voltaren] 75 mg PO BID Discharge Medication List Sucralfate [Carafate] 1 gm PO AC-TID #90 tab 04/09/21 [Rx] Gabapentin [Neurontin] 300 mg PO BID 09/28/21 [History] diazePAM [Valium] 5 mg PO QID PRN 09/28/21 [History] oxyCODONE-APAP 10-325MG [Percocet 10-325 mg] 2 tab PO Q6H PRN 09/28/21 [History] Amoxic-Pot Clav 875-125Mg [Augmentin 875-125] 1 tab PO BID 1 Days #20 tab 10/06/21 [Rx] Hyoscyamine Elixir [Levsin 0.125MG/ML Drops] 0.125 mg PO BID #10 ml 10/06/21 [Rx] Nicotine 21Mg/24Hr Patch [Habitrol] 1 each TRANSDERM DAILY #15 patch 10/06/21 [Rx] Omeprazole [PriLOSEC] 40 mg PO BID #60 cap 10/06/21 [Rx] Simethicone [Gas-X] 125 mg PO AC-TID PRN #30 capsule 10/06/21 [Rx] Sucralfate [Carafate] 1 gm PO BID #30 tablet 10/06/21 [Rx] Follow up Appointment(s)/Referral(s): Vero Wayne MD [STAFF PHYSICIAN] - 10/14/21 (Telehealth) None,Stated [Primary Care Provider] - 1-2 days Patient Instructions/Handouts: *Surgery [facility] - Managing Your Pain After Surgery Without Opioids, How to Stop Smoking (DC), Peptic Ulcer (DC) Activity/Diet/Wound Care/Special Instructions: KEEP APPOINTMENT WITH PAIN SPECIALIST FOR PAIN MANAGEMENT!!!! NO DICLOFENAC, CELEBREX, IBUPROFEN, ASPIRIN, ALEVE OR ANY NSAIDs Using antibacterial soap. No lifting over 4 pounds until November 02December shower. No bathtub soaks for 2 weeks, Oct 20 Wear abdominal binder daily for comfort except for showering. Patient will have a teleconference appointment with Dr. Wayne on 10/14/2021 and an office visit appointment on 10/28/2021 for staple removal Discharge Disposition: HOME SELF-CARE
[2021-10-06 16:05] VITALS: BP 146/84; PULSE 81; RESP 16; TEMP 98.5
[2021-10-06] MEDS ORDERED: FLUCONAZOLE 100 MG TAB PO SCH (21:00)
--- NOTE | 2021-10-08 12:28 | CDI ---
Documentation Clarification Form Date: 10/08/2021 12:21:03 PM From: Tyrell Lucas Phone: Admit Date: 09/28/2021 06:59:00 PM Patient Name: Nagi Dickerson Visit Number: [id number] Discharge Date: 10/06/2021 04:50:00 PM ATTENTION: The Clinical Documentation Specialists (CDI) and [facility] Coding Staff appreciate your assistance in clarifying documentation. Please respond to the clarification below the line at the bottom and electronically sign. The CDI & [facility] Coding staff will review the response and follow-up if needed. Please note: Queries are made part of the Legal Health Record. If you have any questions, please contact the author of this message via ITS. Dr. Vero Wayne Sepsis is documented in the H+P and progress notes 09/29 to 10/01 but is not noted in subsequent documentation. Clarification is requested. History/Risk Factors: perforated duodenal ulcer, peritonitis Clinical Indicators: ED: WBC 18.4, Temp 96.9, pulse 98, 92, 119, resp 16, 20,16, B/P 165/95, 168/90, 127/91 Treatment: abx Please clarify if sepsis is: [ X ] sepsis confirmed POA [ ] sepsis confirmed not POA [ ] sepsis ruled out [ ] Other condition, please specify [ ] Unable to determine KM 10/08/21 at 1900 MTDD
== END 2021-10-06 16:50 | disposition home or self-care (01) | DRG 853 ==
LOC: EC 15:43 → 4SSUR 18:59
PROVIDERS: ADMIT Surgery Plastic and Reconstructive Surgery; ATTEND Surgery Plastic and Reconstructive Surgery
PROC: 0DNW0ZZ Release Peritoneum, Open Approach (ICD-10-PCS; 2021-09-28)
PROC: 3E1M38Z Irrigation of Peritoneal Cavity using Irrigating Substance, Percutaneous Approach (ICD-10-PCS; 2021-09-28)
PROC: 0DU907Z Supplement Duodenum with Autologous Tissue Substitute, Open Approach (ICD-10-PCS; principal; 2021-09-28 20:30)
PROC: 02HV33Z Insertion of Infusion Device into Superior Vena Cava, Percutaneous Approach (ICD-10-PCS; 2021-09-29)
PROC: 3E0436Z Introduction of Nutritional Substance into Central Vein, Percutaneous Approach (ICD-10-PCS; 2021-09-29)
PROC: 0DB78ZX Excision of Stomach, Pylorus, Via Natural or Artificial Opening Endoscopic, Diagnostic (ICD-10-PCS; 2021-10-02)
DX: A41.9 Sepsis, unspecified organism (principal); K26.5 Chronic or unspecified duodenal ulcer with perforation; K65.0 Generalized (acute) peritonitis; K22.10 Ulcer of esophagus without bleeding; R18.8 Other ascites; K26.3 Acute duodenal ulcer without hemorrhage or perforation; R10.9 Unspecified abdominal pain; E86.0 Dehydration; F17.201 Nicotine dependence, unspecified, in remission; F41.1 Generalized anxiety disorder; Z20.822 Contact with and (suspected) exposure to COVID-19; G89.4 Chronic pain syndrome; I25.2 Old myocardial infarction; K66.0 Peritoneal adhesions (postprocedural) (postinfection); K29.50 Unspecified chronic gastritis without bleeding; K44.9 Diaphragmatic hernia without obstruction or gangrene; K59.00 Constipation, unspecified; K82.8 Other specified diseases of gallbladder; Z79.899 Other long term (current) drug therapy
CPT/HCPCS: 36415; 36573; 43239; 62325; 71045; 74177; 74240; 80048; 80053; 80306; 80323; 81001; 82330; 83605; 83690; 83735; 84100; 84478; 85025; 85610; 85730; 87070; 87075; 87205; 87635; 88305; 96374; 96375; 99285

== ENCOUNTER 2021-10-30 10:27 | Day surgery (SDC) | payer OTHER ==
[2021-10-29 14:15] VITALS: BMI 23.1
--- NOTE | 2021-10-30 07:44 | P.GSHP ---
History of Present Illness H&P Date: 10/30/21 CHIEF COMPLAINT: GERD HISTORY OF PRESENT ILLNESS: The patient is a 46-year-old male who presents reports gastroesophageal reflux disease. Upper endoscopy was offered for further evaluation and management. PAST MEDICAL HISTORY: Please see list. PAST SURGICAL HISTORY: Please see list. MEDICATIONS: Please see list. ALLERGIES: Please see list. SOCIAL HISTORY: No illicit drug use FAMILY HISTORY: No reports of Crohn disease or ulcerative colitis. REVIEW OF ORGAN SYSTEMS: CONSTITUTIONAL: No reports of fevers or chills. GI: Denies any blood in stools or constipation. PHYSICAL EXAM: VITAL SIGNS: Stable GENERAL: Well-developed and pleasant in no acute distress. HEENT: No scleral icterus. Extraocular movements grossly intact. Moist buccal mucosa. NECK: Supple without lymphadenopathy. CHEST: Unlabored respirations. Equal bilateral excursions. CARDIOVASCULAR: Regular rate and rhythm. Distal 2+ pulses. ABDOMEN: Soft, nondistended. MUSCULOSKELETAL: No clubbing, cyanosis, or edema. ASSESSMENT: 1. Gastroesophageal reflux disease PLAN: 1. Recommend proceeding with an upper endoscopy Past Medical History Past Medical History: Myocardial Infarction ([place]) Additional Past Medical History / Comment(s): Hx pancreatitis. Recent perforated duodenal ulcer with surgery 10/21, continues to have right side pain. Ringing in left ear. Last Myocardial Infarction Date:: 10 years ago History of Any Multi-Drug Resistant Organisms: None Reported Past Surgical History: Joint Replacement, Orthopedic Surgery Additional Past Surgical History / Comment(s): Left shoulder surgery X3. Left shoulder replacement. Surgery for duodenal ulcer. Past Anesthesia/Blood Transfusion Reactions: No Reported Reaction Additional Past Anesthesia/Blood Transfusion Reaction / Comment(s): "Nervous person." Past Psychological History: ADD/ADHD, Anxiety Additional Psychological History / Comment(s): ADHD. Smoking Status: Former smoker, Vaper Past Alcohol Use History: Daily Additional Past Alcohol Use History / Comment(s): "Smoked my whole life, up to 3 packs a day, quit beginning of , now I just vape". States "used to drink 6-10 beers/day, no alcohol in a few yrs now". Past Drug Use History: None Reported - Past Family History Mother Family Medical History: No Reported History Medications and Allergies Home Medications Medication Instructions Recorded Confirmed Type Hyoscyamine Elixir [Levsin 0.125 mg PO BID #10 ml 10/06/21 10/29/21 Rx 0.125MG/ML Drops] Nicotine 21Mg/24Hr Patch [Habitrol] 1 each TRANSDERM DAILY #15 patch 10/06/21 10/29/21 Rx Omeprazole [PriLOSEC] 40 mg PO BID #60 cap 10/06/21 10/29/21 Rx Sucralfate [Carafate] 1 gm PO BID #30 tablet 10/06/21 10/29/21 Rx HYDROcodone/APAP 10-325MG [Goodman 2 tab PO Q4HR PRN 10/29/21 10/29/21 History 10-325] lisinopriL [Prinivil] 20 mg PO QAM 10/29/21 10/29/21 History Allergies Allergy/AdvReac Type Severity Reaction Status Date / Time cortisone Allergy Unknown Verified 10/29/21 13:51 prednisone Allergy Unknown Verified 10/29/21 13:51
[~2021-10-30 10:27] MED LIST: LACTATED RINGERS 1,000 ML IV SCH; LIDOCAINE 1% (10MG/ML) FOR IV START INTRADERMA PRN
[2021-10-30 10:46] VITALS: TEMP 97.5
[2021-10-30] MEDS ORDERED: PROPOFOL 10 MG/ML 20 ML VIAL IV ONE (11:10)
[2021-10-30] MEDS ORDERED: LIDOCAINE 1% INJ 10MG/ML (20 ML MDV) ONE (11:10)
--- NOTE | 2021-10-30 11:31 | P.PCN ---
Date of Procedure: 10/30/21 Description of Procedure: PREOPERATIVE DIAGNOSIS: History of perforated duodenal ulcer Epigastric abdominal pain Gastric esophageal reflux disease POSTOPERATIVE DIAGNOSIS: History of perforated duodenal ulcer Epigastric abdominal pain Gastric esophageal reflux disease OPERATION: Esophagogastroduodenoscopy SURGEON: Vero Wayne MD ANESTHESIA: MAC. INDICATIONS: The patient is a 46-year-old male who presents following recent perforated duodenal ulcer and abdominal pain. Benefits and risks of the procedure were described. Informed consent was obtained. DESCRIPTION: The patient was brought into the endoscopy suite and laid in the left lateral decubitus position. An Olympus gastroscope was passed along the posterior oropharynx down to the distal esophagus where the squamocolumnar junction was encountered at 42 cm from the incisors. The stomach was entered and no bile reflux was found. The first through third portion of the duodenum was examined with mild stricture at the second portion of the duodenum. The ulcer had completely resolved. Retroflexion of the scope confirmed Hill grade 2 lower esophageal valve. The squamocolumnar junction demonstrated LA grade A erosive esophagitis. The stomach was desufflated. The patient tolerated the procedure well. FINDINGS: Squamocolumnar junction 42 cm from the incisors. Diaphragmatic hiatus at 42 cm. Hill grade 2 lower esophageal valve. LA grade A erosive esophagitis. Resolved duodenal ulcer with mild stricture at second portion of duodenum Chronic gastritis RECOMMENDATIONS: 1. May benefit from future duodenal dilation Plan - Discharge Summary Discharge Rx Participant: No New Discharge Prescriptions: New Omeprazole [PriLOSEC] 40 mg PO DAILY #90 cap Continue HYDROcodone/APAP 10-325MG [[place] 10-325] 2 tab PO Q4HR PRN PRN Reason: Pain Nicotine 21Mg/24Hr Patch [Habitrol] 1 each TRANSDERM DAILY #15 patch lisinopriL [Prinivil] 20 mg PO QAM Discontinued Hyoscyamine Elixir [Levsin 0.125MG/ML Drops] 0.125 mg PO BID #10 ml Sucralfate [Carafate] 1 gm PO BID #30 tablet Omeprazole [PriLOSEC] 40 mg PO BID #60 cap Discharge Medication List Nicotine 21Mg/24Hr Patch [Habitrol] 1 each TRANSDERM DAILY #15 patch 10/06/21 [Rx] HYDROcodone/APAP 10-325MG [[place] 10-325] 2 tab PO Q4HR PRN 10/29/21 [History] lisinopriL [Prinivil] 20 mg PO QAM 10/29/21 [History] Omeprazole [PriLOSEC] 40 mg PO DAILY #90 cap 10/30/21 [Rx] Follow up Appointment(s)/Referral(s): Vero Wayne MD [STAFF PHYSICIAN] - 11/25/21 Patient Instructions/Handouts: Peptic Ulcer (ED) Activity/Diet/Wound Care/Special Instructions: Can finish medications without additional refills for Carafate Discharge Disposition: HOME SELF-CARE
[2021-10-30 11:33] VITALS: RESP 16
[2021-10-30 11:54] VITALS: BP 144/91; PULSE 75
== END 2021-10-30 12:17 | disposition home or self-care (01) ==
LOC: ORWHC2ENDO 10:27
PROVIDERS: ATTEND Surgery Plastic and Reconstructive Surgery
DX: K22.10 Ulcer of esophagus without bleeding (principal); K31.5 Obstruction of duodenum; K29.50 Unspecified chronic gastritis without bleeding; K21.9 Gastro-esophageal reflux disease without esophagitis; I25.2 Old myocardial infarction; H93.12 Tinnitus, left ear; Z96.612 Presence of left artificial shoulder joint; Z98.890 Other specified postprocedural states; F90.9 Attention-deficit hyperactivity disorder, unspecified type; F41.9 Anxiety disorder, unspecified; F17.290 Nicotine dependence, other tobacco product, uncomplicated; Z79.899 Other long term (current) drug therapy; Z88.8 Allergy status to other drugs, medicaments and biological substances; I47.1 Supraventricular tachycardia; I10 Essential (primary) hypertension
CPT/HCPCS: 43235; J2001; J2704

== ENCOUNTER → 2022-01-05 | Outpatient (CLI) | payer OTHER ==
--- NOTE | 2022-01-05 08:41 | CT ---
EXAMINATION TYPE: CT shoulder LT wo con DATE OF EXAM: 01/05/2022 COMPARISON: X-ray dated 10/01/2021 HISTORY: Pain, multiple surgeries CT DLP: 400.2 mGycm Automated exposure control for dose reduction was used. TECHNIQUE: Multiplanar CT scan of the left shoulder. 3-D reconstruction images were performed on an [employer] workstation and reviewed. FINDINGS: Previous left total glenohumeral arthroplasty. Suspected inferior subluxation of the humeral prosthes is in relation to the glenoid prosthesis, please correlate clinically. Suspected lucency seen along t he lateral aspect of the humeral prosthesis measuring up to 2.4 mm. No evidence of prosthesis break or other gross complication. Suspected bone defect along the lateral end of the left clavicle, possibly related to previous surgery. No definite acute fracture line ident ified. Maintained coracoclavicular distance. IMPRESSION: Postoperative changes and other findings as detailed above, please correlate clinically. Further bone scan or MRI assessment can be considered if clinically required.
== END | disposition home or self-care (01) ==
LOC: RADCTMAIN 06:38
PROVIDERS: ATTEND Orthopaedic Surgery
DX: M25.512 Pain in left shoulder (principal); Z96.612 Presence of left artificial shoulder joint

== ENCOUNTER 2023-08-11 16:50 | Inpatient (IN) | payer OTHER ==
--- NOTE | 2023-08-11 16:58 | ED ---
General Adult HPI - General Source: patient, RN notes reviewed <Nubia Antonio - Last Filed: 08/11/23 16:57> - General Source: RN notes reviewed, old records reviewed Limitations: no limitations - History of Present Illness -: hour(s) Radiation: non-radiation Consistency: constant Improves with: none Worsens with: none Associated Symptoms: shortness of breath, syncope, weakness Treatments Prior to Arrival: none <Isidro Marquez - Last Filed: 08/18/23 19:33> - General Stated complaint: syncope-abn EKG Time Seen by Provider: 08/11/23 16:57 - History of Present Illness Initial comments: 48-year-old male presents to the emergency department chief complaint of palpitations and syncopal episode. Patient states that he was working in a garage earlier today when he passed out. He doesn't remember the events prior to passing out. He does note that he has been feeling palpitations on and off all day. He was seen at his PCP today because of the symptoms. They performed an EKG and sent him to the emergency department. (Nubia Antonio) This is a 48-year-old male DF for palpitations and syncope. Patient had syncope event as prescribed earlier today is remember why pass out or heart block caused him to fall out with complaints of shortness of breath and of palpitations on an d off and is brought to the ER from his primary care's office for evaluation regarding syncopal event with abnormal EKG (Isidro Marquez) - Related Data Home Medications Medication Instructions Recorded Confirmed lisinopriL [Prinivil] 20 mg PO BID 10/29/21 08/11/23 Acetaminophen [Tylenol Arthritis] 1,300 mg PO QID PRN 05/13/22 08/11/23 Cephalexin [Keflex] 500 mg PO Q8HR 08/11/23 08/11/23 Cetirizine HCl [Zyrtec] 10 mg PO DAILY PRN 08/11/23 08/11/23 Clobetasol Propionate [Clobex .05% 1 applic TOPICAL DAILY PRN 08/11/23 08/11/23 Shampoo] Fluticasone Nasal Kyle [Flonase 2 spray EA NOSTRIL BID PRN 08/11/23 08/11/23 Nasal Kyle] Ketoconazole 2% Cream [Nizoral 2%] 1 applic TOPICAL DAILY PRN 08/11/23 08/11/23 Ketoconazole 2% Shampoo [Nizoral] 1 applic TOPICAL Q3D 08/11/23 08/11/23 Nicotine 21Mg/24Hr Patch [Habitrol] 1 patch TRANSDERM DAILY 08/11/23 08/11/23 Omeprazole 40 mg PO DAILY PRN 08/11/23 08/11/23 Previous Rx's Medication Instructions Recorded Amiodarone [Cordarone] 400 mg PO BID 30 Days #60 tab 08/13/23 Apixaban [Eliquis] 5 mg PO BID 30 Days #60 tab 08/13/23 Metoprolol Tartrate [Lopressor] 25 mg PO BID 30 Days #60 tab 08/13/23 Allergies Allergy/AdvReac Type Severity Reaction Status Date / Time cortisone Allergy Chest Pain Verified 08/11/23 18:25 diltiazem [From Cardizem] Allergy Rash/Hives Verified 08/11/23 20:49 prednisone Allergy Chest Pain Verified 08/11/23 18:25 NSAIDS (Non-Steroidal AdvReac Unknown Verified 08/11/23 18:25 Anti-Inflamma Review of Systems ROS Other: All systems not noted in ROS Statement are negative. <Nubia Antonio - Last Filed: 08/11/23 16:57> ROS Other: All systems not noted in ROS Statement are negative. <Isidro Marquez - Last Filed: 08/18/23 19:33> ROS Statement: Those systems with pertinent positive or pertinent negative responses have been documented in the HPI. Past Medical History Past Medical History: Chest Pain / Angina, GERD/Reflux, Myocardial Infarction (MS) Additional Past Medical History / Comment(s): Hx pancreatitis. Recent perforated duodenal ulcer with surgery 10/21, continues to have right side pain. Ringing in left ear, left shoulder pain post work injury Last Myocardial Infarction Date:: 10 years ago History of Any Multi-Drug Resistant Organisms: None Reported Past Surgical History: Joint Replacement, Orthopedic Surgery Additional Past Surgical History / Comment(s): Left shoulder surgery X3. Left shoulder replacement. Surgery for duodenal ulcer. Past Anesthesia/Blood Transfusion Reactions: No Reported Reaction Additional Past Anesthesia/Blood Transfusion Reaction / Comment(s): "Nervous person." Past Psychological History: ADD/ADHD, Anxiety Additional Psychological History / Comment(s): ADHD. Smoking Status: Former smoker, Vaper Past Alcohol Use History: Daily Additional Past Alcohol Use History / Comment(s): Smoked since age 14, up to 1 pack every other day Past Drug Use History: None Reported - Past Family History Mother Family Medical History: No Reported History <Nubia Antonio - Last Filed: 08/11/23 16:57> General Exam <Nubia Antonio - Last Filed: 08/11/23 16:57> General appearance: alert, anxious, in distress Head exam: Present: atraumatic, normocephalic, normal inspection Eye exam: Present: normal appearance, PERRL, EOMI. Absent: scleral icterus, conjunctival injection, periorbital swelling ENT exam: Present: normal exam, mucous membranes moist Neck exam: Present: normal inspection. Absent: tenderness, meningismus, lymphadenopathy Respiratory exam: Present: normal lung sounds bilaterally. Absent: respiratory distress, wheezes, rales, rhonchi, stridor Cardiovascular Exam: Present: tachycardia, irregular rhythm, normal heart soun ds. Absent: systolic murmur, diastolic murmur, rubs, gallop, clicks GI/Abdominal exam: Present: soft, normal bowel sounds. Absent: distended, tenderness, guarding, rebound, rigid Extremities exam: Present: normal inspection, full ROM, normal capillary refill. Absent: tenderness, pedal edema, joint swelling, calf tenderness Back exam: Present: normal inspection Neurological exam: Present: alert, oriented X3, CN II-XII intact Psychiatric exam: Present: normal affect, normal mood Skin exam: Present: warm, dry, intact, normal color. Absent: rash <Isidro Marquez - Last Filed: 08/18/23 19:33> - General Exam Comments Initial Comments: Visual Physical Exam Vital signs reviewed General: Well-appearing, nontoxic, no acute distress. Head: Normocephalic, atraumatic Eyes: PERRLA, EOMI ENT: Airway patent Chest: Nonlabored breathing Skin: No visual rash, normal skin tone Neuro: Alert and oriented 3 Musculoskeletal: No gross abnormalities (Nubia Antonio) Course <Isidro Marquez - Last Filed: 12/20/23 19:33> Vital Signs 08/11/23 08/11/23 08/11/23 16:52 17:29 17:30 Temperature 98.5 F Pulse Rate 86 213 H 203 H Pulse Rate [ Left Radial] Respiratory 18 15 12 Rate Blood Pressure 159/97 Blood Pressure [Left Arm Sitting] O2 Sat by Pulse 100 99 99 Oximetry 08/11/23 08/11/23 08/11/23 17:45 17:58 18:00 Temperature Pulse Rate 186 H 192 H 168 H Pulse Rate [ Left Radial] Respiratory 12 9 L Rate Blood Pressure 148/121 Blood Pressure [Left Arm Sitting] O2 Sat by Pulse 100 98 Oximetry 08/11/23 08/11/23 08/11/23 18:14 18:15 18:30 Temperature Pulse Rate 202 H 160 H 163 H Pulse Rate [ Left Radial] Respiratory 24 10 L 13 Rate Blood Pressure 145/108 135/125 145/108 Blood Pressure [Left Arm Sitting] O2 Sat by Pulse 98 94 L 99 Oximetry 08/11/23 08/11/23 08/11/23 18:45 19:00 19:30 Temperature Pulse Rate 142 H 165 H 147 H Pulse Rate [ Left Radial] Respiratory 14 25 H 9 L Rate Blood Pressure 123/91 123/91 106/87 Blood Pressure [Left Arm Sitting] O2 Sat by Pulse 99 97 98 Oximetry 08/11/23 08/11/23 08/11/23 20:00 20:30 21:00 Temperature 97.3 F L Pulse Rate 168 H 151 H 160 H Pulse Rate [ Left Radial] Respiratory 17 19 22 Rate Blood Pressure 119/91 109/82 108/79 Blood Pressure [Left Arm Sitting] O2 Sat by Pulse 98 98 Oximetry 08/11/23 21:30 Temperature 97.9 F Pulse Rate Pulse Rate [ 146 H Left Radial] Respiratory 16 Rate Blood Pressure Blood Pressure 112/80 [Left Arm Sitting] O2 Sat by Pulse 96 Oximetry - Reevaluation(s) Reevaluation #1: Medical record is reviewed (Isidro Marquez) Reevaluation #2: Patient symptoms are gradually improving (Isidro Marquez) Reevaluation #3: Patient informed results questions answered (Isidro Marquez) Reevaluation #4: Was pt. sent in by a medical professional or institution (, PA, RN MATERNITY, urgent care, hospital, or fpc...) When possible be specific @ -no Did you speak to anyone other than the patient for history (EMS, parent, family, police, friend...)? What history was obtained from this source @ -no Did you review nursing and triage notes (agree or disagree)? Why? @ -agree Are old charts reviewed (outside hosp., previous admission, EMS record, old EKG, old radiological studies, urgent care reports/EKG's, fpc records)? Report findings @ -yes Differential Diagnosis (chest pain, altered mental status, abdominal pain women, abdominal pain men, vaginal bleeding, weakness, fever, dyspnea, syncope, headache, dizziness, GI bleed, back pain, seizure, CVA, palpatations, mental health, musculoskeletal)? @ -prior EKG interpreted by me (3pts min.). @ -yes X-rays interpreted by me (1pt min.). @ -yes in for acute disease CT interpreted by me (1pt min.). @ -no U/S interpreted by me (1pt. min.). @ -no What testing was considered but not performed or refused? (CT, X-rays, U/S, labs)? Why? @ -none What meds were considered but not given or refused? Why? @ -none Did you discuss the management of the patient with other professionals (professionals i.e. , PA, RN MATERNITY, lab, RT, psych nurse, social service coordinator, security trainer, teacher, learning officer, case assembler)? Give summary @ -no Was smoking cessation discussed for >3mins.? @ -no Was critical care preformed (if so, how long)? @ -no Were there social determinants of health that impacted care today? How? (Homelessness, low income, unemployed, alcoholism, drug addiction, transpo rtation, low edu. Level, literacy, decrease access to med. care, senior care, rehab)? @ -none Was there de-escalation of care discussed even if they declined (Discuss DNR or withdrawal of care, Hospice)? DNR status @ -no What co-morbidities impacted this encounter? (DM, HTN, Smoking, COPD, CAD, Cancer, CVA, ARF, Chemo, Hep., AIDS, mental health diagnosis, sleep apnea, morbid obesity)? @ -none Was patient admitted / discharged? Hospital course, mention meds given and route, prescriptions, significant lab abnormalities, going to OR and other pertinent info. @ - 48 male to the emergency department for evaluation of severe to be nature fibrillation with RVR persistent chest pain here in the ER, patient be admitted for further evaluation management Admitted Undiagnosed new problem with uncertain prognosis? @ -no Drug Therapy requiring intensive monitoring for toxicity (Heparin, Nitro, Insulin, Cardizem)? @ -no Were any procedures done? @ -no Diagnosis/symptom? @ -Arrhythmia, H a fibrillation with RVR, syncope Acute, or Chronic, or Acute on Chronic? @ -Acute Uncomplicated (without systemic symptoms) or Complicated (systemic symptoms)? @ -Complicated Side effects of treatment? @ -no Exacerbation, Progression, or Severe Exacerbation? @ -exacerbation Poses a threat to life or bodily function? How? (Chest pain, USA, MS, pneumonia, PE, COPD, DKA, ARF, appy, cholecystitis, CVA, Diverticulitis, Homicidal, Suicidal, threat to staff... and all critical care pts) @ -yes with syncopal event regarding arrhythmia (Isidro Marquez) Reevaluation #5: Differential Syncope: Valvular disease, hypertrophic cardiomyopathy, pulmonary embolism, tamponade, tachycardia, bradycardia, MS, hypovolemia, hemorrhage, dissection, anemia, i ntracranial hemorrhage, seizure, hypoglycemia, carbon monoxide poisoning, this is not meant to be an all-inclusive list. (Isidro Marquez) - Consultations Consultation #1: Spoke with the main physicians who agree to admit this patient (Isidro Marquez) EKG Findings - EKG Comments: EKG Findings:: EKG is A. fib with RVR 183 QRS 86 QTC 341 - EKG Results: EKG: interpreted by ERMD <Isidro Marquez - Last Filed: 08/18/23 19:33> Medical Decision Making <Nubia Antonio - Last Filed: 08/11/23 16:57> - Lab Data Result diagrams: 08/13/23 07:14 08/13/23 07:14 - EKG Data -: EKG Interpreted by Me - Radiology Data Radiology results: report reviewed (Chest x-rays negative for acute disease), image reviewed <Isidro Marquez - Last Filed: 08/18/23 19:33> - Medical Decision Making Quick note preformed by Nubia Antonio PA-C (Nubia Antonio) 48 male to the emergency room today for evaluation of syncope or chest pain. Patient's EKG with RVR syncopal event patient be admitted for cardiology evaluation management (Isidro Marquez) - Lab Data Lab Results 08/11/23 08/11/23 08/11/23 Range/Units 17:01 17:01 17:01 WBC 12.0 H (3.8-10.6) k/uL RBC 4.64 (4.30-5.90) m/uL Hgb 15.2 (13.0-17.5) gm/dL Hct 43.8 (39.0-53.0) % MCV 94.4 (80.0-100.0) fL MCH 32.8 (25.0-35.0) pg MCHC 34.7 (31.0-37.0) g/dL RDW 13.1 (11.5-15.5) % Plt Count 316 (150-450) k/uL MPV 7.2 Neutrophils % 72 % Lymphocytes % 20 % Monocytes % 5 % Eosinophils % 1 % Basophils % 1 % Neutrophils # 8.7 H (1.3-7.7) k/uL Lymphocytes # 2.4 (1.0-4.8) k/uL Monocytes # 0.6 (0-1.0) k/uL Eosinophils # 0.2 (0-0.7) k/uL Basophils # 0.1 (0-0.2) k/uL PT 10.1 (10.0-12.5) sec INR 0.9 (<1.2) APTT 24.7 (22.0-30.0) sec Sodium 137 (137-145) mmol/L Potassium 4.2 (3.5-5.1) mmol/L Chloride 99 (98-107) mmol/L Carbon Dioxide 25 (22-30) mmol/L Anion Gap 13 mmol/L BUN 17 (9-20) mg/dL Creatinine 0.67 (0.66-1.25) mg/dL Est GFR (CKD-EPI)AfAm >90 (>60 ml/min/1.73 sqM) Est GFR (CKD-EPI)NonAf >90 (>60 ml/min/1.73 sqM) Glucose 92 (74-99) mg/dL Calcium 10.1 (8.4-10.2) mg/dL Magnesium 2.1 (1.6-2.3) mg/dL Total Bilirubin 0.6 (0.2-1.3) mg/dL AST 38 (17-59) U/L ALT 34 (4-49) U/L Alkaline Phosphatase 113 (38-126) U/L Troponin I (0.000-0.034) ng/mL Total Protein 7.9 (6.3-8.2) g/dL Albumin 4.9 (3.5-5.0) g/dL 08/11/23 Range/Units 17:01 WBC (3.8-10.6) k/uL RBC (4.30-5.90) m/uL Hgb (13.0-17.5) gm/dL Hct (39.0-53.0) % MCV (80.0-100.0) fL MCH (25.0-35.0) pg MCHC (31.0-37.0) g/dL RDW (11.5-15.5) % Plt Count (150-450) k/uL MPV Neutrophils % % Lymphocytes % % Monocytes % % Eosinophils % % Basophils % % Neutrophils # (1.3-7.7) k/uL Lymphocytes # (1.0-4.8) k/uL Monocytes # (0-1.0) k/uL Eosinophils # (0-0.7) k/uL Basophils # (0-0.2) k/uL PT (10.0-12.5) sec INR (<1.2) APTT (22.0-30.0) sec Sodium (137-145) mmol/L Potassium (3.5-5.1) mmol/L Chloride (98-107) mmol/L Carbon Dioxide (22-30) mmol/L Anion Gap mmol/L BUN (9-20) mg/dL Creatinine (0.66-1.25) mg/dL Est GFR (CKD-EPI)AfAm (>60 ml/min/1.73 sqM) Est GFR (CKD-EPI)NonAf (>60 ml/min/1.73 sqM) Glucose (74-99) mg/dL Calcium (8.4-10.2) mg/dL Magnesium (1.6-2.3) mg/dL Total Bilirubin (0.2-1.3) mg/dL AST (17-59) U/L ALT (4-49) U/L Alkaline Phosphatase (38-126) U/L Troponin I 0.109 H* (0.000-0.034) ng/mL Total Protein (6.3-8.2) g/dL Albumin (3.5-5.0) g/dL Critical Care Time Critical Care Time: Yes Total Critical Care Time: 31 <Isidro Marquez - Last Filed: 08/18/23 19:33> Disposition <Nubia Antonio - Last Filed: 08/11/23 16:57> Is patient prescribed a controlled substance at d/c from ED?: No Time of Disposition: 20:20 <Isidro Marquez - Last Filed: 08/18/23 19:33> Clinical Impression: Vasovagal syncope, Atrial fibrillation with rapid ventricular response, NSTEMI (non-ST elevated myocardial infarction), Dehydration Disposition: ADMITTED IP TO THIS HOSP Condition: Good
[2023-08-11 17:29] LABS: Basophils # (A) 0.1 k/uL (0-0.2); Basophils % (A) 1 %; Eosinophils # (A) 0.2 k/uL (0-0.7); Eosinophils % (A) 1 %; HCT 43.8 % (39.0-53.0); HGB 15.2 gm/dL (13.0-17.5); Lymphocytes # (A) 2.4 k/uL (1.0-4.8); Lymphocytes % (A) 20 %; MCH 32.8 pg (25.0-35.0); MCHC 34.7 g/dL (31.0-37.0); MCV 94.4 fL (80.0-100.0); Mean Platelet Volume 7.2; Monocytes # (A) 0.6 k/uL (0-1.0); Monocytes % (A) 5 %; Neutrophils # (A) 8.7 k/uL (1.3-7.7); Neutrophils % (A) 72 %; Platelet Count 316 k/uL (150-450); RBC 4.64 m/uL (4.30-5.90); RDW 13.1 % (11.5-15.5)
[2023-08-11 17:40] LABS: INR 0.9 (<1.2); Partial Thromboplastin Time 24.7 sec (22.0-30.0); Prothrombin Time 10.1 sec (10.0-12.5)
--- NOTE | 2023-08-11 17:47 | XR ---
EXAMINATION TYPE: XR chest 2V DATE OF EXAM: 08/11/2023 COMPARISON: 10/01/2021 INDICATION: Dysrhythmia TECHNIQUE: Frontal and lateral views of the chest are obtained. FINDINGS: The heart size is normal. The pulmonary vasculature is normal. The lungs are clear. Electronic device over the left shoulder. IMPRESSION: 1. No acute pulmonary process.
[2023-08-11 18:00] LABS: ALT 34 U/L (4-49); AST 38 U/L (17-59); African American GFR (CKD) >90 (>60 ml/min/1.73 sqM); Albumin 4.9 g/dL (3.5-5.0); Alkaline Phosphatase 113 U/L (38-126); Anion Gap 13 mmol/L; Blood Urea Nitrogen 17 mg/dL (9-20); Calcium 10.1 mg/dL (8.4-10.2); Carbon Dioxide 25 mmol/L (22-30); Chloride 99 mmol/L (98-107); Glucose 92 mg/dL (74-99); Magnesium 2.1 mg/dL (1.6-2.3); Non-African American GFR(CKD) >90 (>60 ml/min/1.73 sqM); Sodium 137 mmol/L (137-145); Total Bilirubin 0.6 mg/dL (0.2-1.3); Total Protein 7.9 g/dL (6.3-8.2)
[2023-08-11] MEDS ORDERED: DILTIAZEM 125 MG in SODIUM CHLORIDE 0.9% 100 ML IV SCH (18:00)
[2023-08-11] MEDS ORDERED: METOPROLOL TARTRATE 5 MG/5 ML VIAL IVP STA ×3 (18:00→22:05)
[2023-08-11] MEDS ORDERED: DILTIAZEM DRIP BOLUS FROM BAG 1 MG SOLN IV ONE (18:00)
[2023-08-11 18:02] LABS: Potassium 4.2 mmol/L (3.5-5.1)
[2023-08-11] MEDS ORDERED: HEPARIN SODIUM 1,000 UN/ML (10ML VL) IV PRN (18:19)
[2023-08-11] MEDS ORDERED: HEPARIN SODIUM 1,000 UN/ML (10ML VL) IV ONE (18:19)
[2023-08-11] MEDS ORDERED: hydrOXYzine HCL 25 MG TAB PO STA (18:31)
[2023-08-11] MEDS: HEPARIN SOD,PORK IN 0.45% NACL 25,000 UNIT in 0.45% NACL 1 250ML.BAG IV SCH (18:44)
[2023-08-11] MEDS ORDERED: NALOXONE 0.4 MG/ML 1 ML VIAL IV PRN (20:16)
[2023-08-11 20:55] LABS: Basophils # (A) 0.1 k/uL (0-0.2); Basophils % (A) 1 %; Eosinophils # (A) 0.2 k/uL (0-0.7); Eosinophils % (A) 2 %; HCT 41.3 % (39.0-53.0); HGB 14.4 gm/dL (13.0-17.5); Lymphocytes # (A) 3.6 k/uL (1.0-4.8); Lymphocytes % (A) 26 %; MCH 32.6 pg (25.0-35.0); MCHC 34.9 g/dL (31.0-37.0); MCV 93.6 fL (80.0-100.0); Mean Platelet Volume 7.4; Monocytes # (A) 0.5 k/uL (0-1.0); Monocytes % (A) 4 %; Neutrophils # (A) 9.2 k/uL (1.3-7.7); Neutrophils % (A) 67 %; Platelet Count 345 k/uL (150-450); RBC 4.42 m/uL (4.30-5.90); WBC 13.8 k/uL (3.8-10.6)
[2023-08-11 21:18] LABS: ALT 32 U/L (4-49); AST 32 U/L (17-59); African American GFR (CKD) >90 (>60 ml/min/1.73 sqM); Albumin 4.4 g/dL (3.5-5.0); Alkaline Phosphatase 116 U/L (38-126); Anion Gap 14 mmol/L; Blood Urea Nitrogen 14 mg/dL (9-20); Calcium 9.8 mg/dL (8.4-10.2); Carbon Dioxide 20 mmol/L (22-30); Chloride 103 mmol/L (98-107); Glucose 111 mg/dL (74-99); Non-African American GFR(CKD) >90 (>60 ml/min/1.73 sqM); Potassium 4.3 mmol/L (3.5-5.1); Sodium 137 mmol/L (137-145); Total Bilirubin 0.5 mg/dL (0.2-1.3)
[2023-08-11] MEDS ORDERED: METOPROLOL TARTRATE 25 MG TAB PO STA (22:07)
[2023-08-11] MEDS ORDERED: ALPRAZolam 0.5 MG TAB PO STA (22:08)
[2023-08-11] MEDS ORDERED: NON FORMULARY DRUG (Acetaminophen [Tylenol Arthritis] 650 MG Tablet) PO PRN (22:55)
[2023-08-11] MEDS ORDERED: NON FORMULARY DRUG (Cetirizine Hcl [Zyrtec] 10 MG Tablet) PO PRN (22:57)
[2023-08-11] MEDS ORDERED: FLUTICASONE 50MCG/SPRAY NASAL 16GM EA NOSTRIL PRN (22:57)
[2023-08-12] MEDS: GABAPENTIN 300 MG CAP PO SCH ×4 (00:22→21:18)
[2023-08-12] MEDS: CEPHALEXIN 500 MG CAP PO SCH ×4 (00:22→21:19)
[2023-08-12] MEDS: lisinopriL 20 MG TAB PO SCH ×3 (00:22→20:47)
[2023-08-12] MEDS: oxyCODONE-APAP 10-325MG 1 EACH TAB PO PRN ×4 (00:22→21:18)
[2023-08-12] MEDS: NICOTINE 21MG/24HR PATCH TRANSDERM SCH ×2 (00:22→08:29)
[2023-08-12] MEDS ORDERED: SODIUM CHLORIDE 0.9% 500 ML 500 ML IV ONE ×2 (00:58→06:55)
[2023-08-12 02:04] LABS: Basophils # (A) 0.1 k/uL (0-0.2); Basophils % (A) 1 %; Eosinophils # (A) 0.2 k/uL (0-0.7); Eosinophils % (A) 2 %; HCT 40.5 % (39.0-53.0); HGB 14.1 gm/dL (13.0-17.5); Lymphocytes # (A) 4.1 k/uL (1.0-4.8); Lymphocytes % (A) 39 %; MCH 33.2 pg (25.0-35.0); MCHC 34.9 g/dL (31.0-37.0); MCV 95.2 fL (80.0-100.0); Mean Platelet Volume 6.9; Monocytes # (A) 0.6 k/uL (0-1.0); Monocytes % (A) 5 %; Neutrophils # (A) 5.6 k/uL (1.3-7.7); Neutrophils % (A) 52 %; Platelet Count 340 k/uL (150-450); RBC 4.25 m/uL (4.30-5.90); RDW 13.1 % (11.5-15.5); WBC 10.7 k/uL (3.8-10.6)
[2023-08-12 03:24] LABS: ALT 29 U/L (4-49); AST 25 U/L (17-59); African American GFR (CKD) >90 (>60 ml/min/1.73 sqM); Albumin 3.8 g/dL (3.5-5.0); Alkaline Phosphatase 112 U/L (38-126); Anion Gap 9 mmol/L; Blood Urea Nitrogen 20 mg/dL (9-20); Calcium 9.1 mg/dL (8.4-10.2); Carbon Dioxide 25 mmol/L (22-30); Chloride 104 mmol/L (98-107); Glucose 122 mg/dL (74-99); Magnesium 2.2 mg/dL (1.6-2.3); Non-African American GFR(CKD) 87 (>60 ml/min/1.73 sqM); Phosphorus 4.7 mg/dL (2.5-4.5); Potassium 3.9 mmol/L (3.5-5.1); Sodium 138 mmol/L (137-145); Total Bilirubin 0.3 mg/dL (0.2-1.3); Total Protein 6.1 g/dL (6.3-8.2)
[2023-08-12] MEDS ORDERED: AMIODARONE 360 MG in DEXTROSE 5% IN WATER 200 ML IV ONE ×2 (07:30)
[2023-08-12] MEDS ORDERED: KETOCONAZOLE 2% SHAMPOO 1 APPLIC/ML TOPICAL SCH (09:00)
[2023-08-12] MEDS ORDERED: LORazepam 0.5 MG TAB PO STA (10:45)
[2023-08-12] MEDS: METOPROLOL TARTRATE 25 MG TAB PO SCH ×2 (11:05→20:47)
--- NOTE | 2023-08-12 11:27 | P.CRDCN ---
History of Present Illness History of present illness: HISTORY OF PRESENT ILLNESS: This is a 48-year-old male with a past medical history significant for SVT, hypertension, GERD, pancreatitis, ADD, anxiety, nicotine dependence, and former alcohol abuse. Patient does not follow with a caregivers non medical. We have been asked to see the patient in consultation for new onset atrial fibrillation and elevated troponin. Patient examined at the bedside. The patient states yesterday he was in his garage carrying some bags when he had a syncopal episode. He states when he woke up he felt dazed but did not know where he was at. He reports feeling tired and mildly nauseated yesterday. He came to the hospital for further evaluation. The patient was found to be in A. fib with RVR. He was started on IV Cardizem however he had ALLERGIC reaction to this and it was discontinued. The patient has remained in A. fib RVR overnight. He has also been hypotensive. He was started on IV amiodarone. This morning he remains in A. fib with RVR. He does report a history of alcohol abuse but states he has been sober for almost 10 years. He is a current cigarette smoker and smokes a few cigarettes per day. He also reports using marijuana edibles. He states approximately 10 years ago he was found to have abnormal troponins du ring her hospital stay for SVT and underwent angiogram and was told that he had normal coronary arteries. The patient also reports he had a nerve stimulator placed recently under his scalpula. * EKG reveals A. fib with RVR * Chest xray negative for acute process * Laboratory data: Troponin 0.109. 0.108. 0.109. * Current home cardiac medications include lisinopril 20 mg twice a day * No previous echocardiogram or cardiac catheterization available in EMR for review REVIEW OF SYSTEMS: At the time of my exam: CONSTITUTIONAL: Denies fever or chills. HEENT: Denies blurred vision, vision changes, or eye pain. Denies hemoptysis CARDIOVASCULAR: Denies chest pain. Denies orthopnea. Denies PND. Denies palpitations RESPIRATORY: Denies shortness of breath. GASTROINTESTINAL: Denies abdominal pain. Denies nausea or vomiting. HEMATOLOGIC: Denies bleeding disorders. GENITOURINARY: Denies any blood in urine. SKIN: Denies pruitis. Denies rash. PHYSICAL EXAM: VITAL SIGNS: Reviewed. GENERAL: Well-developed in no acute distress. HEENT: Head is normocephalic. Pupils are equal, round. Sclerae anicteric. Mucous membranes of the mouth are moist. Neck supple. No JVD or thyromegaly LUNGS: Respirations even and unlabored. Lungs essentially clear to auscultation bilaterally. HEART: Tachycardic. Irregular rate and rhythm. S1 and S2 heard. ABDOMEN: Soft. Nondistended. Nontender. EXTREMITIES: Normal range of motion. No clubbing or cyanosis. Peripheral pulses intact. No lower extremity edema NEUROLOGIC: Awake and alert. Oriented x 3. ASSESSMENT: Syncope New-onset A. fib with RVR Abnormal troponins, suspect secondary to demand ischemia, type II UT Hypotension History of SVT Normal coronary arteries, per cardiac catheterization approximately 10 years ago per patient History of pancreatitis History of GERD History of ADD/ADHD Anxiety Nicotine dependence Former alcohol abuse PLAN: Obtain 2-D echo to assess cardiac structure and function TSH checked and within normal limits Smoking cessation encouraged Continue telemetry monitoring Continue IV heparin and IV Cardizem Patient to undergo JOZEF and cardioversion today with Dr. Acevedo Further recommendations pending patient's course Nurse practitioner note has been reviewed by physician. Signing provider agrees with the documented findings, assessment, and plan of care. Past Medical History Past Medical History: Chest Pain / Angina, GERD/Reflux, Myocardial Infarction (M I) Additional Past Medical History / Comment(s): Hx pancreatitis. Recent perforated duodenal ulcer with surgery 10/21, continues to have right side pain. Ringing in left ear, left shoulder pain post work injury; Left shoulder stimulator in place Last Myocardial Infarction Date:: 10 years ago History of Any Multi-Drug Resistant Organisms: None Reported Past Surgical History: Joint Replacement, Orthopedic Surgery Additional Past Surgical History / Comment(s): Left shoulder surgery X3. Left shoulder replacement. Surgery for duodenal ulcer. Past Anesthesia/Blood Transfusion Reactions: No Reported Reaction Additional Past Anesthesia/Blood Transfusion Reaction / Comment(s): "Nervous person." Past Psychological History: ADD/ADHD, Anxiety Additional Psychological History / Comment(s): ADHD. Smoking Status: Current every day smoker, Vaper Past Alcohol Use History: Daily Additional Past Alcohol Use History / Comment(s): Smoked since age 14, up to 1 pack every other day Past Drug Use History: None Reported - Past Family History Mother Family Medical History: No Reported History Medications and Allergies Home Medications Medication Instructions Recorded Confirmed Type lisinopriL [Prinivil] 20 mg PO BID 10/29/21 08/11/23 History Acetaminophen [Tylenol Arthritis] 1,300 mg PO QID PRN 05/13/22 08/11/23 History Cephalexin [Keflex] 500 mg PO Q8HR 08/11/23 08/11/23 History Cetirizine HCl [Zyrtec] 10 mg PO DAILY PRN 08/11/23 08/11/23 History Clobetasol Propionate [Clobex .05% 1 applic TOPICAL DAILY PRN 08/11/23 08/11/23 History Shampoo] Fluticasone Nasal [place] [Flonase 2 spray EA NOSTRIL BID PRN 08/11/23 08/11/23 History Nasal [place]] Ketoconazole 2% Cream [Nizoral 2%] 1 applic TOPICAL DAILY PRN 08/11/23 08/11/23 History Ketoconazole 2% Shampoo [Nizoral] 1 applic TOPICAL Q3D 08/11/23 08/11/23 History Nicotine 21Mg/24Hr Patch [Habitrol] 1 patch TRANSDERM DAILY 08/11/23 08/11/23 History Omeprazole 40 mg PO DAILY PRN 08/11/23 08/11/23 History Allergies Allergy/AdvReac Type Severity Reaction Status Date / Time cortisone Allergy Chest Pain Verified 08/11/23 18:25 diltiazem [From Cardizem] Allergy Rash/Hives Verified 08/11/23 20:49 prednisone Allergy Chest Pain Verified 08/11/23 18:25 NSAIDS (Non-Steroidal AdvReac Unknown Verified 08/11/23 18:25 Anti-Inflamma Physical Exam Vitals: Vital Signs Temp Pulse Pulse Resp BP BP Pulse Ox 08/12/23 07:24 87/52 08/12/23 07:09 96/54 08/12/23 06:54 125 H 88/50 08/12/23 06:15 80/40 08/12/23 06:05 80/40 08/12/23 06:00 76/52 08/12/23 05:08 92/63 08/12/23 05:05 85/57 08/12/23 05:00 75/48 08/12/23 04:00 114 H 16 93/63 96 08/12/23 00:00 120 H 16 95/63 96 08/11/23 21:30 97.9 F 146 H 16 112/80 96 08/11/23 21:00 97.3 F L 160 H 22 108/79 98 08/11/23 20:30 151 H 19 109/82 98 08/11/23 20:00 168 H 17 119/91 08/11/23 19:30 147 H 9 L 106/87 98 08/11/23 19:00 165 H 25 H 123/91 97 08/11/23 18:45 142 H 14 123/91 99 08/11/23 18:30 163 H 13 145/108 99 08/11/23 18:15 160 H 10 L 135/125 94 L 08/11/23 18:14 202 H 24 145/108 98 08/11/23 18:00 168 H 9 L 148/121 98 08/11/23 17:58 192 H 08/11/23 17:45 186 H 12 100 08/11/23 17:30 203 H 12 99 08/11/23 17:29 213 H 15 99 08/11/23 16:52 98.5 F 86 18 159/97 100 Intake and Output 08/11/23 08/12/23 08/12/23 22:59 06:59 14:59 Intake Total 1.5 91.5 Balance 1.5 91.5 Intake: Intake, IV Titration 1.5 91.5 Amount Diltiazem 125 mg In 1.5 Sodium Chloride 0.9% 100 ml @ 5 MG/HR 5 mls/hr IV .Q24H [facility] Rx#:[id number] Heparin Sod,Pork in 0.45% 91.5 NaCl 25,000 unit In 0.45 % NaCl 1 250ml.bag @ 11. 853 UNITS/KG/HR 10 mls/hr IV .Q24H [facility] Rx#: [id number] Other: Weight 84.368 kg Results 08/12/23 01:44 08/12/23 01:44 Cardiac Enzymes 08/11/23 08/11/23 08/11/23 Range/Units 17:01 17:01 20:43 AST 38 32 (17-59) U/L Troponin I 0.109 H* (0.000-0.034) ng/mL 08/11/23 08/11/23 08/12/23 Range/Units 21:25 23:45 01:44 AST 25 (17-59) U/L Troponin I 0.108 H* 0.109 H* (0.000-0.034) ng/mL Coagulation 08/11/23 08/12/23 Range/Units 17:01 01:44 PT 10.1 (10.0-12.5) sec APTT 24.7 27.7 (22.0-30.0) sec CBC 08/11/23 08/11/23 08/12/23 Range/Units 17:01 20:43 01:44 WBC 12.0 H 13.8 H 10.7 H (3.8-10.6) k/uL RBC 4.64 4.42 4.25 L (4.30-5.90) m/uL Hgb 15.2 14.4 14.1 (13.0-17.5) gm/dL Hct 43.8 41.3 40.5 (39.0-53.0) % Plt Count 316 345 340 (150-450) k/uL Comprehensive Metabolic Panel 08/11/23 08/11/23 08/12/23 Range/Units 17:01 20:43 01:44 Sodium 137 137 138 (137-145) mmol/L Potassium 4.2 4.3 3.9 (3.5-5.1) mmol/L Chloride 99 103 104 (98-107) mmol/L Carbon Dioxide 25 20 L 25 (22-30) mmol/L BUN 17 14 20 (9-20) mg/dL Creatinine 0.67 0.66 1.03 (0.66-1.25) mg/dL Glucose 92 111 H 122 H (74-99) mg/dL Calcium 10.1 9.8 9.1 (8.4-10.2) mg/dL AST 38 32 25 (17-59) U/L ALT 34 32 29 (4-49) U/L Alkaline Phosphatase 113 116 112 (38-126) U/L Total Protein 7.9 7.0 6.1 L (6.3-8.2) g/dL Albumin 4.9 4.4 3.8 (3.5-5.0) g/dL Current Medications Generic Name Dose Route Start Last Admin Trade Name Freq PRN Reason Stop Dose Admin Cephalexin 500 mg 08/11/23 23:00 08/12/23 00:22 Cephalexin 500 Mg Cap PO 08/12/23 23:59 500 mg TID SHANNAN Administration Protocol Fluticasone Propionate 2 spray 08/11/23 22:57 Fluticasone 50mcg/[place] Nasal 16gm EA NOSTRIL BID PRN Allergy Symptoms Gabapentin 300 mg 08/11/23 23:15 08/12/23 00:22 Gabapentin 300 Mg Cap PO 300 mg TID SHANNAN Administration Heparin Sodium (Porcine) 0 unit 08/11/23 18:19 Heparin Sodium 1,000 Un/Ml (10ml Vl) IV PER PROTOCOL PRN Low PTT Protocol Diltiazem HCl 125 mg/ Sodium 125 mls @ 5 mls/hr 08/11/23 18:00 08/11/23 18:30 Chloride IV 0 mg/hr .Q24H SHANNAN 0 mls/hr Infusion 5 MG/HR Heparin Sodium/Sodium Chloride 250 mls @ 10 mls/hr 08/11/23 18:30 08/12/23 03 :53 25,000 unit/ Sodium Chloride IV 14.853 units/kg/hr .Q24H [facility]ANNAN 12.531 mls/hr Titration Protocol 11.853 UNITS/KG/HR Amiodarone HCl 360 mg/ 200 mls @ 33.333 mls/hr 08/12/23 07:30 08/12/23 07:34 Dextrose/Water IV 08/12/23 13:29 1 mg/min .Q6H ONE 33.333 mls/hr Administration Protocol 1 MG/MIN Amiodarone HCl 450 mg/ 250 mls @ 16.667 mls/hr 08/12/23 13:30 Dextrose/Water IV 08/13/23 07:29 .Q15H SHANNAN Protocol 0.5 MG/MIN Ketoconazole 1 applic 08/12/23 09:00 Ketoconazole 2% Shampoo 1 Applic/Ml TOPICAL Q3D [facility] Lisinopril 20 mg 08/11/23 23:00 08/12/23 00:22 Lisinopril 20 Mg Tab PO 20 mg BID SHANNAN Administration Naloxone HCl 0.2 mg 08/11/23 20:16 Naloxone 0.4 Mg/Ml 1 Ml Vial IV Q2M PRN Opioid Reversal Nicotine 1 patch 08/11/23 23:00 08/12/23 00:22 Nicotine 21mg/24hr Patch TRANSDERM 1 patch DAILY SHANNAN Administration Non-Formulary Medication 10 mg 08/11/23 22:57 Cetirizine Hcl [Zyrtec] PO DAILY PRN Allergy Symptoms Oxycodone/Acetaminophen 1 each 08/11/23 23:02 08/12/23 00:22 Oxycodone-Apap 10-325mg 1 Each Tab PO 1 each Q6HR PRN Administration Pain Intake and Output 08/11/23 08/12/23 08/12/23 22:59 06:59 14:59 Intake Total 1.5 91.5 Balance 1.5 91.5 Intake: Intake, IV Titration 1.5 91.5 Amount Diltiazem 125 mg In 1.5 Sodium Chloride 0.9% 100 ml @ 5 MG/HR 5 mls/hr IV .Q24H [facility] Rx#:[id number] Heparin Sod,Pork in 0.45% 91.5 NaCl 25,000 unit In 0.45 % NaCl 1 250ml.bag @ 11. 853 UNITS/KG/HR 10 mls/hr IV .Q24H [facility] Rx#: [id number] Other: Weight 84.368 kg 08/12/23 01:44 08/12/23 01:44
[2023-08-12] MEDS ORDERED: PROPOFOL 10 MG/ML 20 ML VIAL IV ONE (13:25)
[2023-08-12] MEDS ORDERED: SODIUM CHLORIDE 0.9% 1,000 ML IV ONE (13:26)
[2023-08-12 13:52] VITALS: RESP 18
[2023-08-12] MEDS: AMIODARONE 450 MG in DEXTROSE 5% IN WATER 250 ML IV SCH ×2 (15:13)
--- NOTE | 2023-08-12 15:16 | P.HPIM ---
History of Present Illness H&P Date: 08/12/23 History of present illness; patient is 48-year-old gentleman with past medical h istory significant for hypertension who presented to the ER for palpitations and a syncopal episode. Patient was all right earlier in the morning when while working in the garage, patient passed out. Patient has been complaining of palpitations throughout the day. Denies any chest pain. No pain of orthopnea or PND. Denies any shortness of breath. There was no complain of lightheadedness or dizziness prior to the episode. Following that patient went to his PCPs office where they did an EKG and found to be in A. fib with RVR, patient was sent to ER Initial lab work done in the ER showed WBC 13.8, hemoglobin 14.4, platelet count 345, sodium 137 potassium 4.3, BUNs 14, creatinine 0.66, glucose 111, troponin 0.108 EKG done in the ER showed heart rate of 183, no P waves seen, irregular rhythm, no T-wave inversion, no ST segment elevation Chest x-ray done in the ER showed no acute pulmonary process Patient admitted to internal medicine service REVIEW OF SYSTEMS: CONSTITUTIONAL: No fever, no malaise, no fatigue. HEENT: No recent visual problems or hearing problems. Denied any sore throat. CARDIOVASCULAR: As mentioned in HPI PULMONARY: No shortness of breath, no cough, no hemoptysis. GASTROINTESTINAL: No diarrhea, no nausea, no vomiting, no abdominal pain. NEUROLOGICAL: No headaches, no weakness, no numbness. HEMATOLOGICAL: Denies any bleeding or petechiae. GENITOURINARY: Denies any burning micturition, frequency, or urgency. MUSCULOSKELETAL/RHEUMATOLOGICAL: Denies any joint pain, swelling, or any muscle pain. ENDOCRINE: Denies any polyuria or polydipsia. The rest of the 14-point review of systems is negative. PHYSICAL EXAMINATION: GENERAL: The patient is alert and oriented x3, not in any acute distress. Well developed, well nourished. HEENT: Pupils are round and equally reacting to light. EOMI. No scleral icterus. No conjunctival pallor. Normocephalic, atraumatic. No pharyngeal erythema. No thyromegaly. CARDIOVASCULAR: S1 and S2 present. No murmurs, rubs, or gallops. Irregular in rate and rhythm PULMONARY: Chest is clear to auscultation, no wheezing or crackles. ABDOMEN: Soft, nontender, nondistended, normoactive bowel sounds. No palpable or ganomegaly. MUSCULOSKELETAL: No joint swelling or deformity. EXTREMITIES: No cyanosis, clubbing, or pedal edema. NEUROLOGICAL: Gross neurological examination did not reveal any focal deficits. SKIN: No rashes. Assessment and plan A. fib with RVR Non-ST elevation NM Syncope Hypertension Monitor vital signs Monitor CBC Monitor CMP Continue telemetry monitoring Trend troponin Ordered 2-D echo Continue pharmacy dose heparin Continue Cardizem drip Continue amiodarone drip Cardiology consulted Labs and medication were reviewed.. Continue same treatment. Continue with symptomatic treatment. Resume home medication. Monitor labs and vitals. DVT and GI prophylaxis. Further recommendations as per clinical course of the patient Dictation was produced using [employer] dictation software. please excuse any grammatical, word or spelling errors. Past Medical History Past Medical History: Chest Pain / Angina, GERD/Reflux, Myocardial Infarction (NM) Additional Past Medical History / Comment(s): Hx pancreatitis. Recent perforated duodenal ulcer with surgery 10/21, continues to have right side pain. Ringing in left ear, left shoulder pain post work injury; Left shoulder stimulator in place Last Myocardial Infarction Date:: 10 years ago History of Any Multi-Drug Resistant Organisms: None Reported Past Surgical History: Joint Replacement, Orthopedic Surgery Additional Past Surgical History / Comment(s): Left shoulder surgery X3. Left shoulder replacement. Surgery for duodenal ulcer. Past Anesthesia/Blood Transfusion Reactions: No Reported Reaction Additional Past Anesthesia/Blood Transfusion Reaction / Comment(s): "Nervous person." Past Psychological History: ADD/ADHD, Anxiety Additional Psychological History / Comment(s): ADHD. Smoking Status: Current every day smoker, Vaper Past Alcohol Use History: Daily Additional Past Alcohol Use History / Comment(s): Smoked since age 14, up to 1 pack every other day Past Drug Use History: None Reported - Past Family History Mother Family Medical History: No Reported History Medications and Allergies Home Medications Medication Instructions Recorded Confirmed Type lisinopriL [Prinivil] 20 mg PO BID 10/29/21 08/11/23 History Acetaminophen [Tylenol Arthritis] 1,300 mg PO QID PRN 05/13/22 08/11/23 History Cephalexin [Keflex] 500 mg PO Q8HR 08/11/23 08/11/23 History Cetirizine HCl [Zyrtec] 10 mg PO DAILY PRN 08/11/23 08/11/23 History Clobetasol Propionate [Clobex .05% 1 applic TOPICAL DAILY PRN 08/11/23 08/11/23 History Shampoo] Fluticasone Nasal [place] [Flonase 2 spray EA NOSTRIL BID PRN 08/11/23 08/11/23 History Nasal [place]] Ketoconazole 2% Cream [Nizoral 2%] 1 applic TOPICAL DAILY PRN 08/11/23 08/11/23 History Ketoconazole 2% Shampoo [Nizoral] 1 applic TOPICAL Q3D 08/11/23 08/11/23 History Nicotine 21Mg/24Hr Patch [Habitrol] 1 patch TRANSDERM DAILY 08/11/23 08/11/23 History Omeprazole 40 mg PO DAILY PRN 08/11/23 08/11/23 History Allergies Allergy/AdvReac Type Severity Reaction Status Date / Time cortisone Allergy Chest Pain Verified 08/11/23 18:25 diltiazem [From Cardizem] Allergy Rash/Hives Verified 08/11/23 20:49 prednisone Allergy Chest Pain Verified 08/11/23 18:25 NSAIDS (Non-Steroidal AdvReac Unknown Verified 08/11/23 18:25 Anti-Inflamma Physical Exam Vitals: Vital Signs Temp Pulse Pulse Resp BP BP Pulse Ox 08/12/23 08:38 98 08/12/23 08:27 98 16 91/51 98 08/12/23 08:09 98.4 F 58 L 16 92/53 98 08/12/23 07:39 120 H 18 74/46 96 08/12/23 07:24 87/52 08/12/23 07:09 96/54 08/12/23 06:54 125 H 88/50 08/12/23 06:15 80/40 08/12/23 06:05 80/40 08/12/23 06:00 76/52 08/12/23 05:08 92/63 08/12/23 05:05 85/57 08/12/23 05:00 75/48 08/12/23 04:00 114 H 16 93/63 96 08/12/23 00:00 120 H 16 95/63 96 08/11/23 21:30 97.9 F 146 H 16 112/80 96 08/11/23 21:00 97.3 F L 160 H 22 108/79 98 08/11/23 20:30 151 H 19 109/82 98 08/11/23 20:00 168 H 17 119/91 08/11/23 19:30 147 H 9 L 106/87 98 08/11/23 19:00 165 H 25 H 123/91 97 08/11/23 18:45 142 H 14 123/91 99 08/11/23 18:30 163 H 13 145/108 99 08/11/23 18:15 160 H 10 L 135/125 94 L 08/11/23 18:14 202 H 24 145/108 98 08/11/23 18:00 168 H 9 L 148/121 98 08/11/23 17:58 192 H 08/11/23 17:45 186 H 12 100 08/11/23 17:30 203 H 12 99 08/11/23 17:29 213 H 15 99 08/11/23 16:52 98.5 F 86 18 159/97 100 Intake and Output 08/11/23 08/12/23 08/12/23 22:59 06:59 14:59 Intake Total 1.5 91.5 Balance 1.5 91.5 Intake: Intake, IV Titration 1.5 91.5 Amount Diltiazem 125 mg In 1.5 Sodium Chloride 0.9% 100 ml @ 5 MG/HR 5 mls/hr IV .Q24H [facility] Rx#:[id number] Heparin Sod,Pork in 0.45% 91.5 NaCl 25,000 unit In 0.45 % NaCl 1 250ml.bag @ 11. 853 UNITS/KG/HR 10 mls/hr IV .Q24H [facility] Rx#: [id number] Other: Weight 84.368 kg Results CBC & Chem 7: 08/12/23 01:44 08/12/23 01:44 Labs: Abnormal Lab Results - Last 24 Hours (Table) 08/11/23 08/11/23 08/11/23 Range/Units 17:01 17:01 20:43 WBC 12.0 H 13.8 H (3.8-10.6) k/uL RBC (4.30-5.90) m/uL Neutrophils # 8.7 H 9.2 H (1.3-7.7) k/uL Carbon Dioxide (22-30) mmol/L Glucose (74-99) mg/dL Phosphorus (2.5-4.5) mg/dL Troponin I 0.109 H* (0.000-0.034) ng/mL Total Protein (6.3-8.2) g/dL 08/11/23 08/11/23 08/11/23 Range/Units 20:43 21:25 23:45 WBC (3.8-10.6) k/uL RBC (4.30-5.90) m/uL Neutrophils # (1.3-7.7) k/uL Carbon Dioxide 20 L (22-30) mmol/L Glucose 111 H (74-99) mg/dL Phosphorus (2.5-4.5) mg/dL Troponin I 0.108 H* 0.109 H* (0.000-0.034) ng/mL Total Protein (6.3-8.2) g/dL 08/12/23 08/12/23 Range/Units 01:44 01:44 WBC 10.7 H (3.8-10.6) k/uL RBC 4.25 L (4.30-5.90) m/uL Neutrophils # (1.3-7.7) k/uL Carbon Dioxide (22-30) mmol/L Glucose 122 H (74-99) mg/dL Phosphorus 4.7 H (2.5-4.5) mg/dL Troponin I (0.000-0.034) ng/mL Total Protein 6.1 L (6.3-8.2) g/dL Thrombosis Risk Factor Assmnt - Choose All That Apply Each Factor Represents 1 point: Acute NM, Age 41-60 years Other Risk Factors: No Other congenital or acquired thrombophilia - If yes, enter type in comment: No Thrombosis Risk Factor Assessment Total Risk Factor Score: 2 Thrombosis Risk Factor Assessment Level: Low Risk
--- NOTE | 2023-08-12 15:54 | P.TEE ---
Description of Procedure(s): Procedure performed: Transesophageal Echocardiogram with color flow doppler, pulsed wave doppler and continuous wave doppler, synchronized cardioversion Moderate conscious sedation: Moderate conscious sedation was supplied by anesthesia, see separate report. Complications: none Indications: Symptomatic atrial fibrillation PROCEDURE: After the risks, benefits and alternatives of the above mentioned procedure was explained in detail with the patient, informed consent was obtained. Patient was brought to the lab in a fasting state. Patient was given sedation by anesthesia, see separate report. The throat was sprayed with Hurricane to anesthetize the throat. A lubricated Omni probe was then introduced into the esophagus and stomach and multiple views were obtained. 2D echo with color flow doppler, pulsed wave doppler and continuous wave doppler was utilized. Agitated saline bubbles were injected to assess for any intra- atrial shunt. The probe was then removed. There was no thrombus noted and therefore patient underwent synchronized cardioversion x 1 with 200J with resultant sinus rhythm. Patient tolerated the procedure well. Patient was transferred to the post procedure area in stable and satisfactory condition. FINDINGS: 1. The aortic valve is tricuspid with normal function. 2. The mitral valve appears be normal with mild mitral regurgitation. 3. Tricuspid valve with normal function. 4. The interatrial septum is intact. No evidence of PFO. 5. Left atrial appendage is free of clot. The back wall of the appendage curves down into the side of the left ventricle, appearing to produce and echodensity however appears part of the appendage wall. Additional small t ransverse sinus noted. No LEVY thrombus. 6. Left ventricular EF 40% with global hypokinesis
[2023-08-12] MEDS: HEPARIN SOD,PORK IN 0.45% NACL 25,000 UNIT in 0.45% NACL 1 250ML.BAG IV SCH (16:39)
[2023-08-12 21:22] VITALS: TEMP 97.9
[2023-08-13] MEDS: oxyCODONE-APAP 10-325MG 1 EACH TAB PO PRN ×2 (04:03→10:25)
[2023-08-13] MEDS: AMIODARONE 450 MG in DEXTROSE 5% IN WATER 250 ML IV SCH ×2 (04:49)
[2023-08-13 07:43] LABS: HGB 12.8 gm/dL (13.0-17.5); MCH 32.7 pg (25.0-35.0); MCHC 33.7 g/dL (31.0-37.0); Mean Platelet Volume 7.7; Platelet Count 258 k/uL (150-450); RBC 3.92 m/uL (4.30-5.90); RDW 13.3 % (11.5-15.5); WBC 7.4 k/uL (3.8-10.6)
[2023-08-13 07:52] LABS: ALT 34 U/L (4-49); AST 31 U/L (17-59); African American GFR (CKD) >90 (>60 ml/min/1.73 sqM); Albumin 3.7 g/dL (3.5-5.0); Alkaline Phosphatase 133 U/L (38-126); Anion Gap 12 mmol/L; Blood Urea Nitrogen 17 mg/dL (9-20); Calcium 8.7 mg/dL (8.4-10.2); Carbon Dioxide 19 mmol/L (22-30); Chloride 106 mmol/L (98-107); Glucose 71 mg/dL (74-99); Non-African American GFR(CKD) >90 (>60 ml/min/1.73 sqM); Potassium 4.1 mmol/L (3.5-5.1); Sodium 137 mmol/L (137-145); Total Bilirubin 0.4 mg/dL (0.2-1.3); Total Protein 6.2 g/dL (6.3-8.2)
[2023-08-13] MEDS: METOPROLOL TARTRATE 25 MG TAB PO SCH (07:55)
[2023-08-13] MEDS: NICOTINE 21MG/24HR PATCH TRANSDERM SCH (07:55)
[2023-08-13] MEDS: GABAPENTIN 300 MG CAP PO SCH ×2 (07:55→15:21)
[2023-08-13] MEDS: lisinopriL 20 MG TAB PO SCH (07:55)
[2023-08-13] MEDS: HEPARIN SOD,PORK IN 0.45% NACL 25,000 UNIT in 0.45% NACL 1 250ML.BAG IV SCH (07:56)
--- NOTE | 2023-08-13 10:14 | CA ---
Transthoracic Echo Report Name: Nagi Dickerson Age: 48 Gender: M : 1975 Exam Date: 08/12/2023 13:52 Exam Location: [facility] Ht (in): 74 Wt (lb): 186 Ordering Physician: Mary Bailey Attending/Referring Phys: [id number], Lynn Driver Salesman Lorin Reyes [facility] Procedure CPT: Indications: LV function Cardiac Hx: Technical Quality: Technically difficult study Contrast 1: Definity Total Dose (mL): 3 Contrast 2: Total Dose (mL): MEASUREMENTS (Male / Female) Normal Values DOPPLER AV Peak Velocity 69.7 cm/s AV Peak Gradient 1.9 mmHg AV Mean Velocity 58.8 cm/s AV Mean Gradient 1.4 mmHg AV Velocity Time Integral 15.2 cm LVOT Peak Velocity 61.2 cm/s LVOT Peak Gradient 1.5 mmHg LVOT Velocity Time Integral 13.9 cm MR Peak Velocity 350.0 cm/s MR Peak Gradient 49.0 mmHg Mitral E Point Velocity 74.2 cm/s Mitral A Point Velocity 60.4 cm/s Mitral E to A Ratio 1.2 MV Deceleration Time 183.7 ms LV E' Lateral Velocity 11.4 cm/s Mitral E to LV E' Lateral Ratio 6.5 LV E' Septal Velocity 8.8 cm/s Mitral E to LV E' Septal Ratio 8.5 TR Peak Velocity 203.6 cm/s TR Peak Gradient 16.6 mmHg Right Atrial Pressure 15.0 mmHg Pulmonary Artery Systolic Pressu 31.6 mmHg Right Ventricular Systolic Press 31.6 mmHg FINDINGS Left Ventricle Left ventricular cavity size normal. Left ventricular wall thickness normal. Small Apical hypokinetic. Left ventricular ejection fraction is estimated at 40-45%. Mildly decreased left ventricular ejection fraction. Right Ventricle Moderate right ventricular dilatation. Mild pulmonary hypertension. Right Atrium Mild right atrial dilatation. Left Atrium Normal left atrial size. Mitral Valve Structurally normal mitral valve. Mild mitral regurgitation. Aortic Valve Aortic valve not well visualized. No aortic valve stenosis or regurgitation. Tricuspid Valve Structurally normal tricuspid valve. Moderate tricuspid regurgitation. Pulmonic Valve Pulmonic valve not well visualized. Pericardium Minimal pericardial effusion (normal variant). Aorta Aortic root and proximal ascending aorta not well visualized. CONCLUSIONS Left ventricular ejection fraction is estimated at 40-45%. Samll area of Apical hypokinesis. Mild mitral regurgitation. Moderate tricuspid regurgitation. RVSP estimated at 30 mmHg Minimal pericardial effusion Previewed by: Dr Ace Ahmadi (Electronically Signed) Final Date: 13 August 2023 10:13
[2023-08-13 12:19] VITALS: BP 128/86; PULSE 75
[2023-08-13] MEDS ORDERED: AMIODARONE 200 MG TAB PO SCH (13:00)
--- NOTE | 2023-08-13 13:25 | P.PN ---
Subjective Progress Note Date: 08/13/23 patient is 48-year-old gentleman with past medical history significant for hypertension who presented to the ER for palpitations and a syncopal episode. Patient was all right earlier in the morning when while working in the garage, patient passed out. Patient has been complaining of palpitations throughout the day. Denies any chest pain. No pain of orthopnea or PND. Denies any shortness of breath. There was no complain of lightheadedness or dizziness prior to the episode. Following that patient went to his PCPs office where they did an EKG and found to be in A. fib with RVR, patient was sent to ER Initial lab work done in the ER showed WBC 13.8, hemoglobin 14.4, platelet count 345, sodium 137 potassium 4.3, BUNs 14, creatinine 0.66, glucose 111, troponin 0.108 EKG done in the ER showed heart rate of 183, no P waves seen, irregular rhythm, no T-wave inversion, no ST segment elevation Chest x-ray done in the ER showed no acute pulmonary process Patient admitted to internal medicine service 08/13. Patient seen and examined. Status post JOZEF with cardioversion, c urrently in sinus rhythm. No acute issues overnight. Denies any further episodes of chest pain or shortness of breath REVIEW OF SYSTEMS: CONSTITUTIONAL: No fever, no malaise,. CARDIOVASCULAR: No chest pain, no palpitations, no syncope. PULMONARY: No shortness of breath, no cough, GASTROINTESTINAL: No diarrhea, no nausea, no vomiting, no abdominal pain. NEUROLOGICAL: No headaches, no weakness, PHYSICAL EXAMINATION: GENERAL: The patient is alert and oriented x3, not in any acute distress. Well developed, well nourished. HEENT: Pupils are round and equally reacting to light. EOMI. No scleral icterus. No conjunctival pallor. Normocephalic, atraumatic. No pharyngeal erythema. No thyromegaly. CARDIOVASCULAR: S1 and S2 present. No murmurs, rubs, or gallops. PULMONARY: Chest is clear to auscultation, no wheezing or crackles. ABDOMEN: Soft, nontender, nondistended, normoactive bowel sounds. No palpable organomegaly. MUSCULOSKELETAL: No joint swelling or deformity. EXTREMITIES: No cyanosis, clubbing, or pedal edema. NEUROLOGICAL: Gross neurological examination did not reveal any focal deficits. SKIN: No rashes. Assessment and plan A. fib with RVR Non-ST elevation [place] Syncope Hypertension Monitor vital signs Monitor CBC Monitor CMP Continue telemetry monitoring Status post JOZEF with cardioversion Continue pharmacy dose heparin Continue Lopressor Cardiology following Labs and medication were reviewed.. Continue same treatment. Continue with symptomatic treatment. Resume home medication. Monitor labs and vitals. DVT and GI prophylaxis. Further recommendations as per clinical course of the patient Dictation was produced using [employer] dictation software. please excuse any grammatical, word or spelling errors. Objective - Vital Signs Vital signs: Vital Signs Temp 97.9 F 08/13/23 07:48 Pulse 87 08/13/23 07:48 Resp 18 08/13/23 07:48 BP 104/68 08/13/23 07:48 Pulse Ox 97 08/13/23 07:48 FiO2 Intake & Output 08/12/23 08/13/23 08/13/23 18:59 06:59 18:59 Intake Total 356.276 276.981 297.215 Balance 356.276 276.981 297.215 Intake: Intake, IV Titration 356.276 276.981 179.215 Amount Amiodarone 360 mg In 197.776 Dextrose 5% in Water 200 ml @ 1 MG/MIN 33.333 mls/ hr IV .Q6H [facility] Rx#: [id number] Amiodarone 450 mg In 226.671 Dextrose 5% in Water 250 ml @ 0.5 MG/MIN 16.667 mls/hr IV .[facility]15H [facility] Rx#: [id number] Heparin Sod,Pork in 0.45% 158.500 50.31 179.215 NaCl 25,000 unit In 0.45 % NaCl 1 250ml.bag @ 11. 853 UNITS/KG/HR 10 mls/hr IV .Q24H [facility] Rx#: [id number] Oral 0 118 Other: Voiding Method Toilet Toilet Toilet # Voids 1 - Labs CBC & Chem 7: 08/13/23 07:14 08/13/23 07:14 Labs: Abnormal Lab Results - Last 24 Hours (Table) 08/12/23 08/13/23 08/13/23 Range/Units 17:07 07:14 07:14 RBC 3.92 L (4.30-5.90) m/uL Hgb 12.8 L (13.0-17.5) gm/dL Hct 38.0 L (39.0-53.0) % APTT 43.6 H (22.0-30.0) sec Carbon Dioxide 19 L (22-30) mmol/L Glucose 71 L (74-99) mg/dL Alkaline Phosphatase 133 H (38-126) U/L Total Protein 6.2 L (6.3-8.2) g/dL 08/13/23 Range/Units 07:14 RBC (4.30-5.90) m/uL Hgb (13.0-17.5) gm/dL Hct (39.0-53.0) % APTT 36.1 H (22.0-30.0) sec Carbon Dioxide (22-30) mmol/L Glucose (74-99) mg/dL Alkaline Phosphatase (38-126) U/L Total Protein (6.3-8.2) g/dL
[2023-08-13] MEDS ORDERED: APIXABAN 5 MG TAB PO SCH (13:30)
--- NOTE | 2023-08-13 13:46 | P.PN ---
Subjective HISTORY OF PRESENT ILLNESS: This is a 48-year-old male with a past medical history significant for SVT, hypertension, GERD, pancreatitis, ADD, anxiety, nicotine dependence, and former alcohol abuse. 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 We have been asked to see the patient in consultation for new onset atrial fibrillation and elevated troponin. Patient examined at the bedside. The patient states yesterday he was in his garage carrying some bags when he had a syncopal episode. He states when he woke up he felt dazed but did not know where he was at. He reports feeling tired and mildly nauseated yesterday. He came to the hospital for further evaluation. The patient was found to be in A. fib with RVR. He was started on IV Cardizem however he had ALLERGIC reaction to this and it was discontinued. The patient has remained in A. fib RVR overnight. He has also been hypotensive. He was started on IV amiodarone. This morning he remains in A. fib with RVR. He does report a history of alcohol abuse but states he has been sober for almost 10 years. He is a current cigarette smoker and smokes a few cigarettes per day. He also reports using marijuana edibles. He states approximately 10 years ago he was found to have abnormal troponins during her hospital stay for SVT and underwent angiogram and was told that he had normal coronary arteries. The patient also reports he had a nerve stimulator placed recently under his scalpula. * EKG reveals A. fib with RVR * Chest xray negative for acute process * Laboratory data: Troponin 0.109. 0.108. 0.109. * Current home cardiac medications include lisinopril 20 mg twice a day * No previous echocardiogram or cardiac catheterization available in EMR for review 08/13/2023 Patient is status post JOZEF with cardioversion with conversion to sinus mechanism. EF was noted to be 40% with global hypokinesia on JOZEF. Patient is maintaining sinus mechanism this morning. He denies chest pain or pressure. Denies SOB. PHYSICAL EXAM: VITAL SIGNS: Reviewed. GENERAL: Well-developed in no acute distress. HEENT: Head is normocephalic. Pupils are equal, round. Sclerae anicteric. Mucous membranes of the mouth are moist. Neck supple. No JVD or thyromegaly LUNGS: Respirations even and unlabored. Lungs essentially clear to auscultation bilaterally. HEART: Tachycardic. Irregular rate and rhythm. S1 and S2 heard. ABDOMEN: Soft. Nondistended. Nontender. EXTREMITIES: Normal range of motion. No clubbing or cyanosis. Peripheral pulses intact. No lower extremity edema NEUROLOGIC: Awake and alert. Oriented x 3. ASSESSMENT: Syncope New-onset A. fib with RVR status post JOZEF and cardioversion Cardiomyopathy, suspect nonischemic Abnormal troponins, suspect secondary to demand ischemia, type II [place] Hypotension History of SVT Normal coronary arteries, per cardiac catheterization approximately 10 years ago per patient History of pancreatitis History of GERD History of ADD/ADHD Anxiety Nicotine dependence Former alcohol abuse PLAN: Add oral amio: 400 mg twice a day for one week, then decrease to 200 mg twice a day for one week, then decrease to 200 mg daily DC Heparin. Begin Eliquis 5mg BID Smoking cessation encouraged Stable for discharge for home today from a cardiac standpoint Patient is to follow up post discharge with Dr. Acevedo Nurse practitioner note has been reviewed by physician. Signing provider agrees with the documented findings, assessment, and plan of care. Objective - Vital Signs Vital signs: Vital Signs Temp 97.9 F 08/13/23 07:48 Pulse 87 08/13/23 07:48 Resp 18 08/13/23 07:48 BP 104/68 08/13/23 07:48 Pulse Ox 97 08/13/23 07:48 FiO2 Intake & Output 08/12/23 08/13/23 08/13/23 18:59 06:59 18:59 Intake Total 356.276 276.981 297.215 Balance 356.276 276.981 297.215 Intake: Intake, IV Titration 356.276 276.981 179.215 Amount Amiodarone 360 mg In 197.776 Dextrose 5% in Water 200 ml @ 1 MG/MIN 33.333 mls/ hr IV .Q6H [facility] Rx#: [id number] Amiodarone 450 mg In 226.671 Dextrose 5% in Water 250 ml @ 0.5 MG/MIN 16.667 mls/hr IV .Q15H [facility] Rx#: [id number] Heparin Sod,Pork in 0.45% 158.500 50.31 179.215 NaCl 25,000 unit In 0.45 % NaCl 1 250ml.bag @ 11. 853 UNITS/KG/HR 10 mls/hr IV .Q24H [facility] Rx#: [id number] Oral 0 118 Other: Voiding Method Toilet Toilet Toilet # Voids 1 - Labs CBC & Chem 7: 08/13/23 07:14 08/13/23 07:14 Labs: Abnormal Lab Results - Last 24 Hours (Table) 08/12/23 08/13/23 08/13/23 Range/Units 17:07 07:14 07:14 RBC 3.92 L (4.30-5.90) m/uL Hgb 12.8 L (13.0-17.5) gm/dL Hct 38.0 L (39.0-53.0) % APTT 43.6 H (22.0-30.0) sec Carbon Dioxide 19 L (22-30) mmol/L Glucose 71 L (74-99) mg/dL Alkaline Phosphatase 133 H (38-126) U/L Total Protein 6.2 L (6.3-8.2) g/dL 08/13/23 Range/Units 07:14 RBC (4.30-5.90) m/uL Hgb (13.0-17.5) gm/dL Hct (39.0-53.0) % APTT 36.1 H (22.0-30.0) sec Carbon Dioxide (22-30) mmol/L Glucose (74-99) mg/dL Alkaline Phosphatase (38-126) U/L Total Protein (6.3-8.2) g/dL
--- NOTE | 2023-08-13 13:55 | P.DS ---
Providers Date of admission: 08/11/23 20:23 Expected date of discharge: 08/13/23 Attending physician: Trenton Ann Consults: 08/11/23 20:16 Consult Physician Routine Consulting Provider: Lauren Smiley Consult Reason/Comments: Kellen Lynne Do you want consulting provider notified?: Yes Primary care physician: Stated None Hospital Course: Discharge diagnoses; A. fib with RVR Non-ST elevation [place] Syncope Hypertension Hospital course; patient is 48-year-old gentleman with past medical history significant for hypertension who presented to the ER for palpitations and a syncopal episode. Patient was all right earlier in the morning when while working in the garage, patient passed out. Patient has been complaining of palpitations throughout the day. Denies any chest pain. No pain of orthopnea or PND. Denies any shortness of breath. There was no complain of lightheadedness or dizziness prior to the episode. Following that patient went to his PCPs office where they did an EKG and found to be in A. fib with RVR, patient was sent to ER Initial lab work done in the ER showed WBC 13.8, hemoglobin 14.4, platelet count 345, sodium 137 potassium 4.3, BUNs 14, creatinine 0.66, glucose 111, troponin 0.108 EKG done in the ER showed heart rate of 183, no P waves seen, irregular rhythm, no T-wave inversion, no ST segment elevation Chest x-ray done in the ER showed no acute pulmonary process Patient admitted to internal medicine service 08/13. Patient seen and examined. Status post JOZEF with cardioversion, currently in sinus rhythm. No acute issues overnight. Denies any further episodes of chest pain or shortness of breath. Cardiology recommended discharging patient on amiodarone 400 mg twice a day for one week, then decrease to 200 mg twice a day for one week, then decrease to 200 mg daily DC Heparin. Begin Eliquis 5mg BID. Cardiology cleared the patient for discharge PHYSICAL EXAMINATION: GENERAL: The patient is alert and oriented x3, not in any acute distress. Well developed, well nourished. HEENT: Pupils are round and equally reacting to light. EOMI. No scleral icterus. No conjunctival pallor. Normocephalic, atraumatic. No pharyngeal erythema. No thyromegaly. CARDIOVASCULAR: S1 and S2 present. No murmurs, rubs, or gallops. PULMONARY: Chest is clear to auscultation, no wheezing or crackles. ABDOMEN: Soft, nontender, nondistended, normoactive bowel sounds. No palpable organomegaly. MUSCULOSKELETAL: No joint swelling or deformity. EXTREMITIES: No cyanosis, clubbing, or pedal edema. NEUROLOGICAL: Gross neurological examination did not reveal any focal deficits. SKIN: No rashes. Dictation was produced using [employer] dictation software. please excuse any grammatical, word or spelling errors. Patient Condition at Discharge: Good Plan - Discharge Summary Discharge Rx Participant: No New Discharge Prescriptions: New Amiodarone [Cordarone] 400 mg PO BID 30 Days #60 tab Apixaban [Eliquis] 5 mg PO BID 30 Days #60 tab Metoprolol Tartrate [Lopressor] 25 mg PO BID 30 Days #60 tab Continue Acetaminophen [Tylenol Arthritis] 1,300 mg PO QID PRN PRN Reason: Pain Ketoconazole 2% Shampoo [Nizoral] 1 applic TOPICAL Q3D Clobetasol Propionate [Clobex .05% Shampoo] 1 applic TOPICAL DAILY PRN PRN Reason: scalp issues Omeprazole 40 mg PO DAILY PRN PRN Reason: acid reflux Nicotine 21Mg/24Hr Patch [Habitrol] 1 patch TRANSDERM DAILY Fluticasone Nasal [place] [Flonase Nasal [place]] 2 spray EA NOSTRIL BID PRN PRN Reason: Allergy Symptoms lisinopriL [Prinivil] 20 mg PO BID Ketoconazole 2% Cream [Nizoral 2%] 1 applic TOPICAL DAILY PRN PRN Reason: itching scalp Cetirizine HCl [Zyrtec] 10 mg PO DAILY PRN PRN Reason: Allergy Symptoms Cephalexin [Keflex] 500 mg PO Q8HR Discharge Medication List lisinopriL [Prinivil] 20 mg PO BID 10/29/21 [History] Acetaminophen [Tylenol Arthritis] 1,300 mg PO QID PRN 05/13/22 [History] Cephalexin [Keflex] 500 mg PO Q8HR 08/11/23 [History] Cetirizine HCl [Zyrtec] 10 mg PO DAILY PRN 08/11/23 [History] Clobetasol Propionate [Clobex .05% Shampoo] 1 applic TOPICAL DAILY PRN 08/11/23 [History] Fluticasone Nasal [place] [Flonase Nasal [place]] 2 spray EA NOSTRIL BID PRN 08/11/23 [History] Ketoconazole 2% Cream [Nizoral 2%] 1 applic TOPICAL DAILY PRN 08/11/23 [History] Ketoconazole 2% Shampoo [Nizoral] 1 applic TOPICAL Q3D 08/11/23 [History] Nicotine 21Mg/24Hr Patch [Habitrol] 1 patch TRANSDERM DAILY 08/11/23 [History] Omeprazole 40 mg PO DAILY PRN 08/11/23 [History] Amiodarone [Cordarone] 400 mg PO BID 30 Days #60 tab 08/13/23 [Rx] Apixaban [Eliquis] 5 mg PO BID 30 Days #60 tab 08/13/23 [Rx] Metoprolol Tartrate [Lopressor] 25 mg PO BID 30 Days #60 tab 08/13/23 [Rx] Follow up Appointment(s)/Referral(s): Hector Acevedo DO [STAFF PHYSICIAN] - 1 Week None,Stated [Primary Care Provider] - 1-2 days Activity/Diet/Wound Care/Special Instructions: Take amiodarone 400 mg twice a day for one week, then decrease to 200 mg twice a day for one week, then decrease to 200 mg daily Discharge Disposition: HOME SELF-CARE
--- NOTE | 2023-08-18 11:02 | CDI ---
Documentation Clarification Form Date: 08/18/2023 10:51:01 AM From: Fátima Kaiser Admit Date: 08/11/2023 08:23:00 PM Patient Name: Nagi Dickerson Visit Number: [id number] Discharge Date: 08/13/2023 03:59:00 PM ATTENTION: The Clinical Documentation Specialists (CDI) and [facility] Coding Staff appreciate your assistance in clarifying documentation. Please respond to the clarification below the line at the bottom and electronically sign. The CDI & [facility] Coding staff will review the response and follow-up if needed. Please note: Queries are made part of the Legal Health Record. If you have any questions, please contact the author of this message via ITS. Dr. Dawson Cohn Conflicting documentation has been found in the medical record. As attending physician, please provide clarification. Per Cardiology consult - Type II [place] Per H and P and DCS - NSTEMI History/Risk Factors: New onset of atrial fib, history of [place], History of SVT Clinical Indicators: Treatment: Trend troponins, Cardizem drip, pharmacy dose heparin Please clarify which diagnosis is most appropriate: [ x] Type II [place] [ ] NSTEMI [ ] Other (please specify) [ ] Unable to determine MTDD
== END 2023-08-13 15:59 | disposition home or self-care (01) | DRG 201 ==
LOC: EC 16:50 → 3SCARD 20:23
PROVIDERS: ADMIT Hospitalist; ATTEND Hospitalist
PROC: B246ZZ4 Ultrasonography of Right and Left Heart, Transesophageal (ICD-10-PCS; principal; 2023-08-11)
PROC: 5A2204Z Restoration of Cardiac Rhythm, Single (ICD-10-PCS; principal; 2023-08-11)
DX: I48.91 Unspecified atrial fibrillation (principal); I21.A1 Myocardial infarction type 2; R55 Syncope and collapse; I47.10 Supraventricular tachycardia, unspecified; I10 Essential (primary) hypertension; K21.9 Gastro-esophageal reflux disease without esophagitis; F90.9 Attention-deficit hyperactivity disorder, unspecified type; F17.290 Nicotine dependence, other tobacco product, uncomplicated; I95.9 Hypotension, unspecified; F41.9 Anxiety disorder, unspecified; I25.2 Old myocardial infarction; I42.8 Other cardiomyopathies; Z79.899 Other long term (current) drug therapy; Z87.11 Personal history of peptic ulcer disease; Z96.612 Presence of left artificial shoulder joint
CPT/HCPCS: 36415; 71046; 80053; 83735; 84100; 84443; 84484; 85025; 85027; 85379; 85610; 85730; 92960; 93005; 93306; 93312; 93320; 93325; 94760; 96365; 96375; 96376; 99291

== ENCOUNTER → 2023-11-11 | Outpatient (CLI) | payer OTHER ==
--- NOTE | 2023-11-11 16:37 | P.SLEEP ---
History of Present Illness DATE: 11/11/2023 CONSULTATION/NEW PATIENT EVALUATION HISTORY OF PRESENT ILLNESS/SLEEP-WAKE EVALUATION: 48-year-old gentleman had b een evaluated in the sleep center for possible obstructive sleep apnea hypopnea syndrome. SLEEP SCHEDULE: Usually sleep schedule from 9:30 PM to 7 AM 7 days a week. FALLING ASLEEP: Patient does have problems with falling asleep, has TV set in bedroom. DURING SLEEP: Patient usually sleeps on the side with snoring and awakenings from sleep with gasping for air. Patient wakes up from sleep 3 times with 3 episodes of nocturia. positive history of grinding teeth, sweating, palpitations. No history of hypnogogical hallucinations, sleep paralysis, or cataplexy. DURING THE DAY/WAKE STATE: In the morning patient wake up tired, has difficulties to pay attention, has problems with memory, concentration. Dudley sleepiness scale is significantly increased to 14. Patient takes 2 naps during the day. PAST MEDICAL HISTORY: Coronary artery disease, status post heart attack in 2023, atrial fibrillation, duodenal perforation. PAST SURGICAL HISTORY: Left shoulder surgery, surgical treatment for duodenal perforation 2022. MEDICATIONS: Lisinopril 20 mg once a day, amiodarone 100 mg once a day, Eliquis 5 mg twice a day, metoprolol. SOCIAL HISTORY: Positive for smoking for 35 years up to 1-1/2 pack a day, alcohol consumption rarely at the present time. FAMILY HISTORY: Restless legs. REVIEW OF SYSTEMS: Snoring, multiple awakenings from sleep, sleepiness during the day. No fevers. No double vision. No recent chest pain. No shortness of breath. No abdominal pain. No bleeding episodes. No blood in urine. No seizure episodes. PHYSICAL EXAMINATION: GENERAL: A pleasant patient without any distress. VITAL SIGNS: BP 163/96, HR 75, RR 16, weight 178.6 pounds, height 6 foot 1-1/4 inches, body mass index 23.3. HEENT: PERRLA, EOMI. Evaluation of oropharynx showed tongue protrudes midline, low position of soft palate Mallampati 3. NECK: Supple. No JVD. Thyroid is not palpable. [] inches in circumference. LUNGS: Clear to percussion and to auscultation. Good air exchange. No wheezing or rhonchi. HEART: S1, S2, premature contractions. No murmurs, gallops or rubs. ABDOMEN: Soft and nontender. Bowel sounds are present. No organomegaly appreciated. EXTREMITIES: No clubbing or cyanosis. SENIOR HARDWARE ENGINEER: Awake, alert, and oriented x3. Cranial nerves 2 to 7 intact. There is no fasciculation or atrophy noted. No focal deficits observed. ASSESSMENT: 1. Snoring, multiple awakenings from sleep, small oropharyngeal airspace Mallampati 3, sleepiness Dud[place] Sleepiness Scale significantly increased to 14. Obstructive sleep apnea hypopnea syndrome. 2. Coronary artery disease, status post heart attack in 2023. 3. History of atrial fibrillation. 4. Status post duodenal perforation, status post surgical treatment. 5 status post left shoulder replacement. PLAN: 1. Home sleep apnea test for evaluation of patient's breathing during sleep. 2. CPAP/BiPAP titration if sleep study confirms obstructive sleep apnea- hypopnea syndrome. 3. Preferable position during sleep on the side. 4. No driving if patient feels any sleepiness. Patient is aware of civil and criminal liability for unsafe driving. 5. Sleep hygiene with regular sleep time for at least 7.5-8 h ours. 6. Watching weight. Thank you very much for referring this patient for consultation. Sincerely, Jacques Beverly MD, PhD, FAASM. Diplomat of [place] [employer], Sleep Medicine Board by [place] [employer] [place] [employer] Casing Tester of [facility] [place] Past Medical History Past Medical History: Chest Pain / Angina, GERD/Reflux, Myocardial Infarction ([place]) Additional Past Medical History / Comment(s): Hx pancreatitis. Recent perforated duodenal ulcer with surgery 10/21, continues to have right side pain. Ringing in left ear, left shoulder pain post work injury; Left shoulder stimulator in place Last Myocardial Infarction Date:: 10 years ago History of Any Multi-Drug Resistant Organisms: None Reported Past Surgical History: Joint Replacement, Orthopedic Surgery Additional Past Surgical History / Comment(s): Left shoulder surgery X3. Left shoulder replacement. Surgery for duodenal ulcer. Past Anesthesia/Blood Transfusion Reactions: No Reported Reaction Additional Past Anesthesia/Blood Transfusion Reaction / Comment(s): "Nervous person." Past Psychological History: ADD/ADHD, Anxiety Additional Psychological History / Comment(s): ADHD. Smoking Status: Current every day smoker, Vaper Past Alcohol Use History: Daily Additional Past Alcohol Use History / Comment(s): Smoked since age 14, up to 1 pack every other day Past Drug Use History: None Reported - Past Family History Mother Family Medical History: No Reported History Medications and Allergies Home Medications Medication Instructions Recorded Confirmed Type lisinopriL [Prinivil] 20 mg PO BID 10/29/21 08/11/23 History Acetaminophen [Tylenol Arthritis] 1,300 mg PO QID PRN 05/13/22 08/11/23 History Cephalexin [Keflex] 500 mg PO Q8HR 08/11/23 08/11/23 History Cetirizine HCl [Zyrtec] 10 mg PO DAILY PRN 08/11/23 08/11/23 History Clobetasol Propionate [Clobex .05% 1 applic TOPICAL DAILY PRN 08/11/23 08/11/23 History Shampoo] Fluticasone Nasal [place] [Flonase 2 spray EA NOSTRIL BID PRN 08/11/23 08/11/23 History Nasal [place]] Ketoconazole 2% Cream [Nizoral 2%] 1 applic TOPICAL DAILY PRN 08/11/23 08/11/23 History Ketoconazole 2% Shampoo [Nizoral] 1 applic TOPICAL Q3D 08/11/23 08/11/23 History Nicotine 21Mg/24Hr Patch [Habitrol] 1 patch TRANSDERM DAILY 08/11/23 08/11/23 History Omeprazole 40 mg PO DAILY PRN 08/11/23 08/11/23 History Amiodarone [Cordarone] 400 mg PO BID 30 Days #60 tab 08/13/23 Rx Apixaban [Eliquis] 5 mg PO BID 30 Days #60 tab 08/13/23 Rx Metoprolol Tartrate [Lopressor] 25 mg PO BID 30 Days #60 tab 08/13/23 Rx Allergies Allergy/AdvReac Type Severity Reaction Status Date / Time cortisone Allergy Chest Pain Verified 08/11/23 18:25 diltiazem [From Cardizem] Allergy Rash/Hives Verified 08/11/23 20:49 prednisone Allergy Chest Pain Verified 08/11/23 18:25 NSAIDS (Non-Steroidal AdvReac Unknown Verified 08/11/23 18:25 Anti-Inflamma Sleep Note - Sleep Note Sleep Note: Temperature: Pulse Rate: Respiratory Rate: Blood Pressure: SpO2: Height: Weight: BMI: Neck Circumference:
[2023-11-11 17:29] VITALS: BP 163/96; PULSE 75; RESP 16; TEMP 98.5
== END ==
LOC: 3 N SLEEP 15:52
PROVIDERS: ATTEND Internal Medicine
DX: G47.33 Obstructive sleep apnea (adult) (pediatric) (principal); I25.10 Atherosclerotic heart disease of native coronary artery without angina pectoris; I48.91 Unspecified atrial fibrillation; G47.10 Hypersomnia, unspecified; F17.210 Nicotine dependence, cigarettes, uncomplicated; F12.90 Cannabis use, unspecified, uncomplicated; Z96.612 Presence of left artificial shoulder joint; Z98.890 Other specified postprocedural states; Z86.74 Personal history of sudden cardiac arrest; Z79.01 Long term (current) use of anticoagulants; Z79.899 Other long term (current) drug therapy; Z88.8 Allergy status to other drugs, medicaments and biological substances
CPT/HCPCS: 99211

== ENCOUNTER → 2023-11-25 | Outpatient (CLI) | payer OTHER ==
--- NOTE | 2023-12-01 14:29 | P.PCN ---
Description of Procedure: CLINICAL: A home sleep apnea test has been done for confirmation of possible obstructive sleep apnea-hypopnea syndrome. DESCRIPTION OF PROCEDURE: RESULTS: Recording time was 9 hours 29 minutes. Evaluation time was 9 hours 17 minutes. Evaluation time is sufficient for making conclusion about results of the test. Raw data of sleep recording has been reviewed and is adequate. Respiratory channel showed 0 apneas and 5 hypopneas. Apnea-hypopnea index was 0.5 per hour. Pulse rate in the range between minimum 46, maximum 75, average 55 by computer calculation. Lowest desaturation was 85%. IMPRESSION: 1. No significant respiratory abnormalities have been documented. 2. Patient presents with symptoms of significant excessive daytime sleepiness with [place] Sleepiness Scale increased to 14, which dictate necessity to include hypersomnia differential diagnosis. Please see other impressions from consultation. PLAN: 1. Multiple sleep latency test for objective evaluation symptoms of excessive daytime sleepiness. 2. Sleep hygiene with regular time in bed for at least 8 hours. 3. No driving if feeling any sleepiness. . Thank you very much for allowing me to participate in the management of your patient. Sincerely, Jacques Beverly MD, PhD, FAASM Diplomat of [place] [employer] Sleep Medicine Board of [place] [employer] Legal Department Manager of [facility] [place]
== END ==
LOC: 3 N SLEEP 16:53
PROVIDERS: ATTEND Internal Medicine
DX: G47.33 Obstructive sleep apnea (adult) (pediatric) (principal); G47.10 Hypersomnia, unspecified; Z88.8 Allergy status to other drugs, medicaments and biological substances

== ENCOUNTER → 2023-12-30 | Outpatient (CLI) | payer OTHER ==
--- NOTE | 2024-01-06 15:15 | P.PCN ---
Description of Procedure: CLINICAL: A home sleep apnea test has been done for confirmation of possible obstructive sleep apnea-hypopnea syndrome. DESCRIPTION OF PROCEDURE: RESULTS: Recording time was 6 hours 53 minutes. Evaluation time was 6 hours 41 minutes. Evaluation time is sufficient for making conclusion about results of the test. Raw data of sleep recording has been reviewed and is adequate. Respiratory channel showed 6 apneas and 6 hypopneas. Apnea-hypopnea index was 1.8 per hour. Pulse rate in the range between minimum 56, maximum 92, average 66 by computer calculation. Lowest desaturation was 87%. IMPRESSION: 1. No significant respiratory abnormalities have been documented during the home sleep apnea test. 2. Patient has episodes of sleepiness during the day, [place] Sleepiness Scale was increased during consultation. Please see other impressions from consultation. PLAN: 1. Follow-up visit to discuss results of the test and recommendations. 2. Sleep hygiene with regular time in bed for at least 8 hours. 3. No driving if feeling any sleepiness. Thank you very much for allowing me to participate in the management of your patient. Sincerely, Jacques Beverly MD, PhD, FAASM Diplomat of [place] [employer] Sleep Medicine Board of [place] [employer] Older Adult Social Work Specialist of [facility] [place]
== END ==
LOC: 3 N SLEEP 16:39
PROVIDERS: ATTEND Internal Medicine
DX: G47.33 Obstructive sleep apnea (adult) (pediatric) (principal); G47.00 Insomnia, unspecified; G47.10 Hypersomnia, unspecified; Z88.8 Allergy status to other drugs, medicaments and biological substances

== ENCOUNTER 2024-01-20 09:00 | Day surgery (SDC) | payer OTHER ==
[2024-01-18 11:36] VITALS: BMI 21.5
[~2024-01-20 09:00] MED LIST changes: +HYDROmorphone 0.5 MG/0.5 ML SYRINGE IVP PRN; -LACTATED RINGERS 1,000 ML IV SCH; +SCOPOLAMINE 1 MG/72 HR PATCH TRANSDERM ONE
[2024-01-20] MEDS: SODIUM CHLORIDE 0.9% 1,000 ML IV ONE (09:19)
[2024-01-20 09:37] LABS: Basophils # (A) 0.1 k/uL (0-0.2); Basophils % (A) 1 %; Eosinophils # (A) 0.2 k/uL (0-0.7); Eosinophils % (A) 2 %; HCT 43.7 % (39.0-53.0); HGB 14.6 gm/dL (13.0-17.5); Lymphocytes % (A) 10 %; MCH 30.5 pg (25.0-35.0); MCHC 33.4 g/dL (31.0-37.0); MCV 91.1 fL (80.0-100.0); Mean Platelet Volume 7.4; Monocytes # (A) 0.5 k/uL (0-1.0); Monocytes % (A) 5 %; Neutrophils # (A) 7.8 k/uL (1.3-7.7); Neutrophils % (A) 82 %; Platelet Count 334 k/uL (150-450); RDW 12.6 % (11.5-15.5); WBC 9.6 k/uL (3.8-10.6)
[2024-01-20 09:57] LABS: ALT 13 U/L (4-49); AST 23 U/L (17-59); African American GFR (CKD) >90 (>60 ml/min/1.73 sqM); Albumin 4.4 g/dL (3.5-5.0); Alkaline Phosphatase 137 U/L (38-126); Anion Gap 9 mmol/L; Blood Urea Nitrogen 9 mg/dL (9-20); Calcium 9.3 mg/dL (8.4-10.2); Carbon Dioxide 23 mmol/L (22-30); Chloride 98 mmol/L (98-107); Glucose 91 mg/dL (74-99); Non-African American GFR(CKD) >90 (>60 ml/min/1.73 sqM); Potassium 4.9 mmol/L (3.5-5.1); Sodium 130 mmol/L (137-145); Total Bilirubin 0.6 mg/dL (0.2-1.3); Total Protein 6.9 g/dL (6.3-8.2)
[2024-01-20] MEDS ORDERED: PHENYLEPHRINE-0.9% NACL SYG 1,000 MCG/10 ML SYRINGE ONE (12:26)
[2024-01-20] MEDS ORDERED: MIDAZOLAM 2 MG/2 ML VIAL ONE (12:26)
[2024-01-20] MEDS ORDERED: LIDOCAINE 1% INJ 10MG/ML (20 ML MDV) ONE ×2 (12:26→13:06)
[2024-01-20] MEDS ORDERED: PROPOFOL 10 MG/ML 20 ML VIAL IV ONE (12:26)
[2024-01-20] MEDS ORDERED: ROCURONIUM 10 MG/ML (5 ML VIAL) IV ONE (12:26)
[2024-01-20] MEDS ORDERED: SUCCINYLCHOLINE CHLORIDE 200 MG/10 ML VIAL IV ONE (12:26)
[2024-01-20] MEDS ORDERED: fentaNYL (PF) 50 MCG/ML 2 ML AMP ONE (12:26)
[2024-01-20] MEDS ORDERED: HEPARIN SODIUM,PORCINE 10,000 UNIT/ML 1 ML VIAL ONE (12:26)
[2024-01-20] MEDS ORDERED: ePHEDrine 50 MG/ML 1 ML VIAL ONE (12:26)
[2024-01-20] MEDS ORDERED: NEOSTIGMINE 1 MG/ML 10 ML VIAL ONE (12:26)
[2024-01-20] MEDS ORDERED: ISOPROTERENOL 250 MCG/1.25 ML SYR IV ONE (12:26)
[2024-01-20] MEDS ORDERED: GLYCOPYRROLATE 0.2 MG/ML 2 ML VIAL ONE (12:26)
[2024-01-20] MEDS: HEPARIN SOD,PORK IN 0.45% NACL 25,000 UNIT in 0.45% NACL 1 250ML.BAG IV ONE (12:44)
[2024-01-20] MEDS: LIDOCAINE 1% INJ 10MG/ML (20 ML MDV) SQ ONE (13:10)
[2024-01-20] MEDS: LACTATED RINGERS 1,000 ML IV ONE (15:16)
[2024-01-20] MEDS: IOPAMIDOL-370 100ML BTL INJ ONE (15:44)
--- NOTE | 2024-01-20 15:56 | P.HPCAR ---
History of Present Illness This is Dr. Chapman dictating an H/P on this patient The patient was interviewed and examined IMPRESSION / ASSESSMENT: Paroxysmal atrial fibrillation with RVR Reduced LV systolic function RV enlargement PLAN: A-fib ablation with PVI Continue Eliquis Follow thyroid function HPI Patient continues to have palpitations with dizziness and shortness of breath No fever chills cough expectoration No syncope No angina ROS: No fever chills or rigors, no cough, phlegm or expectoration, no nausea, vomiting or diarrhea, no hematuria, dysuria, no musculoskeletal complaints, no strokes or seizures, no skin lesions. EXAMINATION: 145/91 mmHg pulse rate in the 70s No JVD No lower extremity edema Normal heart sounds Pectus excavated him noted Abdomen soft nontender REVIEW OF LABS, ECG & MEDICAL DATA Hemoglobin 14.6, platelet count 334,000 Sodium 130, potassium 4.9 Creatinine 0.63 TSH 0.22 Physical Exam Vitals: Vital Signs Temp Pulse Resp BP Pulse Ox 01/20/24 09:27 98.9 F 72 16 145/91 98 Intake and Output 01/20/24 01/20/24 01/20/24 06:59 14:59 22:59 Intake Total 1025 100 Balance 1025 100 Intake: IV 1025 100 Other: Weight 76.2 kg Past Medical History Past Medical History: Atrial Fibrillation, Chest Pain / Angina, GERD/Reflux, Myocardial Infarction ([place]) Additional Past Medical History / Comment(s): SEE DR. CHAPMAN'S H&P. Hx pancreatitis. Perforated duodenal ulcer with surgery 09/2021 Last Myocardial Infarction Date:: around 2013 History of Any Multi-Drug Resistant Organisms: None Reported Past Surgical History: Joint Replacement, Orthopedic Surgery Additional Past Surgical History / Comment(s): Left shoulder surgery X3. Left shoulder replacement. Surgery for duodenal ulcer. Past Anesthesia/Blood Transfusion Reactions: No Reported Reaction Additional Past Anesthesia/Blood Transfusion Reaction / Comment(s): "Nervous person." Past Psychological History: ADD/ADHD, Anxiety Additional Psychological History / Comment(s): . Smoking Status: Current every day smoker, Vaper Past Alcohol Use History: Rare Additional Past Alcohol Use History / Comment(s): Smoked since age 14, up to 1 pack every other day Past Drug Use History: None Reported - Past Family History Mother Family Medical History: No Reported History Physical Examination Vital Signs Temp Pulse Resp BP Pulse Ox 01/20/24 09:27 98.9 F 72 16 145/91 98 Intake and Output 01/20/24 01/20/24 01/20/24 06:59 14:59 22:59 Intake Total 1025 100 Balance 1025 100 Intake: IV 1025 100 Other: Weight 76.2 kg Results 01/20/24 09:28 01/20/24 09:28 Cardiac Enzymes 01/20/24 Range/Units 09:28 AST 23 (17-59) U/L CBC 01/20/24 Range/Units 09:28 WBC 9.6 (3.8-10.6) k/uL RBC 4.80 (4.30-5.90) m/uL Hgb 14.6 (13.0-17.5) gm/dL Hct 43.7 (39.0-53.0) % Plt Count 334 (150-450) k/uL Comprehensive Metabolic Panel 01/20/24 Range/Units 09:28 Sodium 130 L (137-145) mmol/L Potassium 4.9 (3.5-5.1) mmol/L Chloride 98 (98-107) mmol/L Carbon Dioxide 23 (22-30) mmol/L BUN 9 (9-20) mg/dL Creatinine 0.63 L (0.66-1.25) mg/dL Glucose 91 (74-99) mg/dL Calcium 9.3 (8.4-10.2) mg/dL AST 23 (17-59) U/L ALT 13 (4-49) U/L Alkaline Phosphatase 137 H (38-126) U/L Total Protein 6.9 (6.3-8.2) g/dL Albumin 4.4 (3.5-5.0) g/dL Current Medications Generic Name Dose Route Start Last Admin Trade Name Freq PRN Reason Stop Dose Admin Acetaminophen 650 mg 01/20/24 15:36 Acetaminophen Tab 325 Mg Tab PO 02/19/24 15:37 Q6HR PRN Mild Pain (Scale 1 to 3) Apixaban 5 mg 01/20/24 21:00 Apixaban 5 Mg Tab PO 02/19/24 21:01 BID SHANNAN Protocol Escitalopram Oxalate 10 mg 01/21/24 09:00 Escitalopram 10 Mg Tab PO 02/20/24 09:01 DAILY SHANNAN Hydromorphone HCl 0.5 mg 01/20/24 07:00 Hydromorphone 0.5 Mg/0.5 Ml Syringe IVP 01/20/24 23:00 Q5M PRN Phase 1 or 2 - Pain Control Acetaminophen 1,000 mg/ IV 100 mls @ 400 mls/hr 01/20/24 17:00 Solution IVPB 01/20/24 17:14 ONCE ONE Lidocaine HCl 0.1 ml 01/20/24 05:57 Lidocaine 1% (10mg/Ml) For Iv Start INTRADERMA 02/19/24 05:58 PER PROTOCOL PRN IV Start Lisinopril 20 mg 01/20/24 21:00 Lisinopril 20 Mg Tab PO 02/19/24 21:01 BID SHANNAN Metoprolol Succinate 25 mg 01/21/24 09:00 Metoprolol Succinate (Er) 25 Mg Tab.Er.24h PO 02/20/24 09:01 DAILY SHANNAN Sodium Chloride 12 ml 01/20/24 15:36 Sodium Chloride 0.9% Flush 10 Ml Syringe IV 02/19/24 15:37 Q12HR PRN Line Flush Intake and Output 01/20/24 01/20/24 01/20/24 06:59 14:59 22:59 Intake Total 1025 100 Balance 1025 100 Intake: IV 1025 100 Other: Weight 76.2 kg Patient Weight 01/21/24 06:59 Weight 76.2 kg 01/20/24 09:28 01/20/24 09:28
--- NOTE | 2024-01-20 16:29 | P.PRLE ---
RE: Nagi Dickerson Dear Moni Youngangela underwent an A-fib ablation with wide [place] pulmonary vein isolation successfully. Following ablation atrial fibrillation was not inducible despite high-dose Isopril and rapid atrial pacing He will continue Eliquis 5 mg twice daily for now along with his heart failure medications Today's TSH was 0.22. He was previously on amiodarone but I had discontinued this almost 2 months back I will repeat his TSH once again but this needs to be followed and if abnormal evaluated Thank you for entrusting me with the care of the patient Warm regards Sincerely Abel Chapman
[2024-01-20] MEDS: SCOPOLAMINE 1 MG/72 HR PATCH TRANSDERM ONE (17:18)
[2024-01-20] MEDS: ONDANSETRON 4 MG/2 ML VIAL IVP ONE (17:18)
[2024-01-20] MEDS: SODIUM CHLORIDE 0.9% 1,000 ML IV SCH (17:19)
[2024-01-20] MEDS: LACTATED RINGERS 1,000 ML IV SCH (17:19)
[2024-01-20] MEDS: APIXABAN 5 MG TAB PO SCH (17:50)
[2024-01-20] MEDS: ASPIRIN 81 MG PO SCH (17:50)
[2024-01-20] MEDS: ACETAMINOPHEN IV (For NPO) 1,000 MG in EMPTY BAG 1 BAG IVPB ONE (17:53)
[2024-01-20] MEDS: lisinopriL 20 MG TAB PO SCH (20:38)
[2024-01-20] MEDS: ACETAMINOPHEN TAB 325 MG TAB PO PRN (20:46)
[2024-01-20] MEDS ORDERED: APIXABAN 5 MG TAB PO SCH (21:00)
[2024-01-21 08:06] VITALS: BP 141/88; PULSE 82; RESP 17; TEMP 98.9
[2024-01-21] MEDS: METOPROLOL SUCCINATE (ER) 25 MG TAB.ER.24H PO SCH (08:35)
[2024-01-21] MEDS: ESCITALOPRAM 10 MG TAB PO SCH (08:35)
--- NOTE | 2024-01-26 08:53 | PCN ---
cc: Hector Acevedo DO; Abel Chapman MD - EP Procedure Note Electrophysiology Procedure Note: PROCEDURE A. fib ablation with PVI and left atrial septal ablation DIAGNOSIS Paroxysmal atrial fibrillation, symptomatic, refractory to therapy, associated cardiomyopathy RESULT No left atrial appendage mass seen on intracardiac echo, very large pulmonary veins Thick PV italo-pedicles Successful A. fib ablation/pulmonary vein isolation of all veins using cryo- ablation Complete entrance block in all 4 veins confirmed Transient phrenic nerve paresis with rapid, complete recovery Left atrial septal ablation Esophageal deflection YES PROCEDURE DETAILS Written informed consent prior to procedure. Patient brought to the EP lab. General anesthesia given. Heparin administered. A city maintained above 300 seconds Both groins prepped and draped per protocol and venous sheaths placed. Esophagus intubated, circa catheter for temperature monitoring an endoscope for possible esophageal deflection. Phrenic nerve monitoring performed. Esophageal temperature monitoring performed. Esophageal deflection performed if circa catheter overlapping with the balloon or circa temperature less than 27.5C Intracardiac echocardiography performed. Pericardium evaluated. Left atrial appendage evaluated. Left atrium evaluated along with pulmonary veins Transseptal catheterization performed under fluoroscopic guidance and intracardiac echo guidance Cryoablation sheath exchanged, balloon catheter along with achieve catheter placed in the left atrium. Pulmonary veins isolated in the following sequence: Left superior pulmonary vein followed by left inferior pulmonary vein, followed by right inferior pulmonary vein and lastly right superior pulmonary vein. Phrenic nerve stimulation along with capture thresholds within the SVC and right superior pulmonary vein to identify the phrenic nerve proximity to the cryo- balloon. Pulmonary veins isolated and confirmed with entrance and exit block. Phrenic nerve integrity confirmed at the end of the procedure Ablation of the left atrial septum performed with cannulation of the superior branch of the right inferior to achieve ablation of the posterior septum of the left atrium. Ablation of electrograms confirmed Electrical cardioversion performed for persistence of atrial fibrillation despite successful ablation. Diagnostic catheters for the high right atrium, His bundle, coronary sinus placed. LA and RA pressures recorded RA pressure: 13/2/10 LA pressure: 14/0/5 Baseline measurements in sinus rhythm WI 106 ms, QRS 106 ms, QT 410 ms Sinus cycle length 704 ms Diagnostic EP study Sinus node recovery x 1 883, 896 and 765 ms. AV node Wenckebach block 300 ms High-dose Isopril used. No atrial fibrillation induced Both stimulation from the high right atrium performed. No atrial fibrillation induced Venous sheaths were removed and hemostasis assured with a closure device. Patient extubated and transferred to recovery Increase procedural time Large diameter pulmonary veins noted. Despite excellent occlusion and excellent cryoballoon temperatures, isolation was difficult and delayed isolation's were noted Therefore the pulmonary vein tributaries were subselectively cannulated and pulmonary vein isolation was performed at an antral level with shorter 2-minute cryo lesions. Good temperatures were achieved. Antral level ablation performed with multiple ablations, anteriorly, posteriorly, superiorly and inferiorly All his veins were of large diameter Multiple attempts needed for successful cryoablation isolation of the pulmonary vein At the end of the procedure all pulmonary veins were completely isolated at the antral level PROCEDURES PERFORMED Diagnostic EP study CS pacing and recording Left and right transseptal catheterization Catheter the mapping of the tachycardia Intracardiac echocardiography Pulmonary vein isolation with transseptal and comprehensive EPS, [id number] Extended procedure duration Drug infusion, +[id number] Linear ablation, left atrium, +[id number] MTDD
== END 2024-01-21 11:59 | disposition home or self-care (01) ==
LOC: CATHEP 09:00 → 6NMEDSUR 15:35 → CATHEP 01-21 11:59
PROVIDERS: ATTEND Internal Medicine Clinical Cardiac Electrophysiology
DX: I48.0 Paroxysmal atrial fibrillation (principal); I48.19 Other persistent atrial fibrillation; I42.9 Cardiomyopathy, unspecified; R55 Syncope and collapse; I10 Essential (primary) hypertension; K21.9 Gastro-esophageal reflux disease without esophagitis; F17.210 Nicotine dependence, cigarettes, uncomplicated; I25.2 Old myocardial infarction; Z82.49 Family history of ischemic heart disease and other diseases of the circulatory system; Z79.01 Long term (current) use of anticoagulants; Z79.899 Other long term (current) drug therapy; Z88.6 Allergy status to analgesic agent; Z88.8 Allergy status to other drugs, medicaments and biological substances
CPT/HCPCS: 92960; 93623; 93656; 93657; 86900; 86901; 80053; 84443; 85025; 86850; C1894 ×2; C1769 ×3; C1760 ×2; C1730 ×2; C1759; C1893; C1733; C1766; J2250; J0330; J1644 ×2; J2710; J2001; J3010; J0131; J2704; Q9967; J2371

== ENCOUNTER 2024-07-04 06:31 | Day surgery (SDC) | payer OTHER ==
[2024-06-30 09:28] VITALS: BMI 20.5
[~2024-07-04 06:31] MED LIST changes: -HYDROmorphone 0.5 MG/0.5 ML SYRINGE IVP PRN; -SCOPOLAMINE 1 MG/72 HR PATCH TRANSDERM ONE
[2024-07-04] MEDS ORDERED: ONDANSETRON 4 MG/2 ML VIAL IVP PRN (07:00)
[2024-07-04 07:40] VITALS: RESP 16; TEMP 98
[2024-07-04] MEDS: IV FLUID CONTINUATION 1,000 ML IV ONE (07:42)
[2024-07-04] MEDS: LACTATED RINGERS 1,000 ML IV SCH (07:42)
[2024-07-04] MEDS ORDERED: LIDOCAINE 1% INJ 10MG/ML (20 ML MDV) ONE (07:49)
[2024-07-04] MEDS ORDERED: PROPOFOL 10 MG/ML 20 ML VIAL IV ONE (07:49)
--- NOTE | 2024-07-04 07:54 | P.GSHP ---
History of Present Illness H&P Date: 07/04/24 Chief Complaint: Colon cancer screening 49-year-old male here for colonoscopy. He has not had 1 previously. No bowel complaints. No rectal bleeding. Patient is concerned about progressive weight loss. Has lost about 50 to 60 pounds in the last 1 year unintentionally. He was told his thyroid is malfunctioning and has an appointment with endocrinology. History of previous perforated duodenal ulcer. This was after heavy NSAID use. Past Medical History Past Medical History: Chest Pain / Angina, GERD/Reflux, Hypertension, Myocardial Infarction ([place]) Additional Past Medical History / Comment(s): Hx pancreatitis. Recent perforated duodenal ulcer with surgery 10/21, continues to have right side pain. Ringing in left ear, left shoulder pain post work injury; Left shoulder stimulator in place Last Myocardial Infarction Date:: Jul 2023 History of Any Multi-Drug Resistant Organisms: None Reported Past Surgical History: Cardiac Ablation, Joint Replacement, Orthopedic Surgery Additional Past Surgical History / Comment(s): Left shoulder surgery X3. Left shoulder replacement. Surgery for duodenal ulcer. Angiogram 10yrs ago Past Anesthesia/Blood Transfusion Reactions: No Reported Reaction Additional Past Anesthesia/Blood Transfusion Reaction / Comment(s): "Nervous person." Smoking Status: Current every day smoker - Past Family History Mother Family Medical History: No Reported History Medications and Allergies Home Medications Medication Instructions Recorded Confirmed Type lisinopriL [Prinivil] 20 mg PO BID 10/29/21 07/04/24 History Apixaban [Eliquis] 5 mg PO BID 30 Days #60 tab 08/13/23 07/04/24 Rx Escitalopram [Lexapro] 10 mg PO DAILY 01/18/24 07/04/24 History Propranolol HCl [Inderal] 60 mg PO DAILY 06/30/24 07/04/24 History Allergies Allergy/AdvReac Type Severity Reaction Status Date / Time cortisone Allergy Chest Pain Verified 07/04/24 07:26 prednisone Allergy Chest Pain Verified 07/04/24 07:26 NSAIDS (Non-Steroidal AdvReac Unknown Verified 07/04/24 07:26 Anti-Inflamma Surgical - Exam Vital Signs Temp Pulse Resp BP Pulse Ox 98.0 F 71 16 137/81 97 07/04/24 07:38 07/04/24 07:38 07/04/24 07:38 07/04/24 07:38 07/04/24 07:38 Physical exam: General: Well-developed, well-nourished HEENT: Normocephalic, sclerae nonicteric Abdomen: Nontender, nondistended Extremities: No edema Neuro: Alert and oriented Assessment and Plan (1) Colon cancer screening Narrative/Plan: Will proceed with colonoscopy at this time. Current Visit: Yes Status: Acute Code(s): Z12.11 - ENCOUNTER FOR SCREENING FOR MALIGNANT NEOPLASM OF COLON SNOMED Code(s): 045333626
--- NOTE | 2024-07-04 08:04 | P.PCN ---
Date of Procedure: 07/04/24 Procedure(s) Performed: PREOPERATIVE DIAGNOSIS: Screening POSTOPERATIVE DIAGNOSIS: Poor prep PROCEDURE: Colonoscopy ANESTHESIA: MAC SURGEON: Nestor Camp M.D. SPECIMENS: None ENDOSCOPIC PROCEDURE: The patient was placed on the endoscopy table in the left decubitus position. The Olympus colonoscope was inserted into the anus and passed under direct visualization to the base of the cecum. The appendiceal orifice was visualized. From that point the scope was slowly withdrawn inspecting all surfaces carefully. There were no visualized neoplastic inflammatory or polypoid lesions throughout the cecum, ascending, transverse, descending, sigmoid and rectum. The patient's prep was quite poor with retained solid and liquid stool throughout. We probably only visualized 30 to 40% of the mucosal surfaces. There was no obvious diverticulosis seen. Digital rectal examination was normal. The patient was taken to the recovery room in stable condition per anesthesia guidelines. RECOMMENDATIONS: Patient's prep unfortunately was not adequate for this examination. Will discuss options with patient moving forward.
[2024-07-04 08:33] VITALS: BP 155/81; PULSE 75
== END 2024-07-04 08:46 | disposition home or self-care (01) ==
LOC: ORWHC2ENDO 06:31
PROVIDERS: ATTEND Surgery
DX: Z12.11 Encounter for screening for malignant neoplasm of colon (principal); R63.4 Abnormal weight loss; K21.9 Gastro-esophageal reflux disease without esophagitis; I10 Essential (primary) hypertension; I25.2 Old myocardial infarction; I48.91 Unspecified atrial fibrillation; E78.5 Hyperlipidemia, unspecified; F41.9 Anxiety disorder, unspecified; F98.8 Other specified behavioral and emotional disorders with onset usually occurring in childhood and adolescence; F12.90 Cannabis use, unspecified, uncomplicated; F17.210 Nicotine dependence, cigarettes, uncomplicated; Z87.19 Personal history of other diseases of the digestive system; Z79.01 Long term (current) use of anticoagulants; Z79.899 Other long term (current) drug therapy; Z88.8 Allergy status to other drugs, medicaments and biological substances; Z88.6 Allergy status to analgesic agent
CPT/HCPCS: 45378; J2003; J2704